=== PATIENT | female | born 1935 | race Hispanic/Latino ===

== ENCOUNTER 2017-06-06 15:21 | Inpatient (IN) | payer MEDICARE, OTHER ==
[2017-06-06 15:59] LABS: BASO # 0.05 K/mm3 (0.0-2.0); BASO % 0.7 % (0.0-3.0); EOS # 0.1 (0.0-0.7); EOS % 0.9 % (1.5-5.0); GRAN # 4.71 (1.4-6.5); GRAN % 63.3 % (50.0-68.0); LYMPH # 1.5 (1.2-3.4); LYMPH % 19.9 % (22.0-35.0); MEAN CORPUSCULAR HGB CONC 34.1 g/dl (31.0-37.0); MONO # 1.1 (0.1-0.6); MONO % 15.2 % (1.0-6.0); PLATELET COUNT 138 10^3/uL (120.0-450.0); RBC 4.67 10^6/uL (3.5-6.1); RED CELL DISTRIBUTION WIDTH 13.4 % (11.5-14.5); WHITE BLOOD COUNT 7.4 10^3/ul (4.5-11.0)
[2017-06-06 16:05] LABS: ALB/GLOB RATIO 1.2 (1.1-1.8); ALBUMIN 3.9 g/dL (3.0-4.8); ALT/SGPT 41 U/L (7-56); AST/SGOT 52 U/L (15-39); BLOOD UREA NITROGEN 15 mg/dL (7-21); CALCIUM 10.1 mg/dL (8.4-10.5); GFR AFRICAN-AMERICAN > 60; GFR NON-AFRICAN AMERICAN > 60; INR 1.06 (0.93-1.08); MAGNESIUM 1.7 mg/dL (1.7-2.2); PARTIAL THROMBOPLASTIN TIME 25.5 Seconds (23.7-30.8); PROTHROMBIN TIME 11.4 Seconds (9.9-11.8)
--- NOTE | 2017-06-06 16:10 | RAD ---
HISTORY: cough COMPARISON: 08/17/2013 FINDINGS: LUNGS: No active pulmonary disease. PLEURA: No significant pleural effusion identified, no pneumothorax apparent. CARDIOVASCULAR: Mild cardiomegaly and aortic tortuosity OSSEOUS STRUCTURES: Old fracture deformities in pleural thickening can be seen on the right. Findings are unchanged VISUALIZED UPPER ABDOMEN: Normal. OTHER FINDINGS: None. IMPRESSION: No active disease.
[2017-06-06] MEDS ORDERED: Heparin 25,000units in D5W 25,000 UNITS/250 ML BAG IV PRN ×2 (16:11→16:38)
[2017-06-06 16:15] LABS: B-TYPE NATRIURETIC PEPTIDE 15500 pg/mL (0-450)
[2017-06-06 16:17] LABS: TROPONIN I 0.47 ng/mL
--- NOTE | 2017-06-06 16:20 | ED PDOC ---
Arrival/HPI - General Chief Complaint: Medical Clearance Time Seen by Provider: 06/06/17 15:23 Historian: Patient - History of Present Illness Narrative History of Present Illness (Text): 06/06/17 15:48 An 81 year old female whose past medical history includes, R lung surgery for a lung CA, presents tot he emergency department after being sent in from PMD's office for tachycardia and Atrial fibrillation. Patient reports that she had a sore throat and ear pain last week. She states that the chest pain has resolved. She denies headache, nausea, vomiting, diarrhea, abdominal pain, dizziness, or any other complaint. Time/Duration: Other (3 days) Symptom Onset: Sudden Symptom Course: Unchanged Activities at Onset: Rest, Light Context: Home Past Medical History - Provider Review Nursing Documentation Reviewed: Yes - Infectious Disease Hx of Infectious Diseases: None - Tetanus Immunization Tetanus Immunization: Unknown - Cardiac Hx Pacemaker: No - Neurological Hx Paralysis: No - Hematological/Oncological Hx Blood Transfusions: No Hx Blood Transfusion Reaction: No - Musculoskeletal/Rheumatological Hx Musculoskeletal Disorders: Yes (RA) - Psychiatric Hx Emotional Abuse: No Hx Physical Abuse: No Hx Substance Use: No - Surgical History Hx Joint Replacement: Yes (knee, hip,) - Anesthesia Hx Anesthesia Reactions: No Hx Malignant Hyperthermia: No - Suicidal Assessment Feels Threatened In Home Enviroment: No Family/Social History - Physician Review Nursing Documentation Reviewed: Yes Family/Social History: No Known Family HX Smoking Status: Never Smoked Hx Alcohol Use: No Hx Substance Use: No Hx Substance Use Treatment: No Allergies/Home Meds Allergies/Adverse Reactions: Allergies No Known Allergies Allergy (Verified 06/06/17 20:08) Home Medications: Home Meds Medication Instructions Recorded Confirmed Leflunomide [Arava] 20 mg PO DAILY 08/17/13 06/06/17 Montelukast [Singulair] 10 mg PO DAILY 08/17/13 06/06/17 Spironolactone [Aldactone] 25 mg PO DAILY 08/17/13 06/06/17 Clonazepam [Klonopin] 0.5 mg PO BID 06/06/17 06/06/17 Folic Acid 1 mg PO DAILY 06/06/17 06/06/17 Gabapentin 300 mg PO DAILY 06/06/17 06/06/17 Propylene Glycol [Systane Balance] 1 drp OU BID 06/06/17 06/06/17 Propylene Glycol/Peg 400 [Systane 1 drp OU BID 06/06/17 06/06/17 0.3-0.4% Eye Drops] Timolol [Betimol] 1 drp OS BID 06/06/17 06/06/17 Tiotropium [Spiriva] 18 mcg IH DAILY 06/06/17 06/06/17 amLODIPine [Norvasc] 5 mg PO BID 06/06/17 06/06/17 Review of Systems - Physician Review All systems were reviewed & negative as marked: Yes - Review of Systems Constitutional: absent: Fevers, Night Sweats Cardiovascular: Chest Pain Gastrointestinal: absent: Abdominal Pain, Diarrhea, Nausea, Vomiting Neurological: absent: Headache, Dizziness Physical Exam Vital Signs Reviewed: Yes Vital Signs Temp Pulse Resp BP Pulse Ox 06/06/17 23:15 117 H 16 120/79 94 L 06/06/17 22:54 137 H 142/110 H 06/06/17 22:26 139 H 17 143/108 H 95 06/06/17 21:44 98.1 F 139 H 18 128/98 H 06/06/17 21:06 139 H 128/98 H 06/06/17 19:06 120 H 18 138/95 H 06/06/17 17:50 148 H 161/89 H 06/06/17 17:22 98.1 F 135 H 22 140/105 H 93 L 06/06/17 16:44 127/77 06/06/17 15:49 188 H 143/77 06/06/17 15:36 97.7 F 109 H 18 115/101 H 93 L Temperature: Afebrile Blood Pressure: Hypertensive Pulse: Tachycardic Respiratory Rate: Agonal Appearance: Positive for: Well-Appearing, Non-Toxic, Comfortable Pain Distress: None Mental Status: Positive for: Alert and Oriented X 3 - Systems Exam Head: Present: Atraumatic, Normocephalic Pupils: Present: PERRL Extroacular Muscles: Present: EOMI Conjunctiva: Present: Normal Mouth: Present: Moist Mucous Membranes Neck: Present: Normal Range of Motion Respiratory/Chest: Present: Rales (rales at lung bases) Cardiovascular: Present: Irregular Rhythm (heart irregularly regular) Abdomen: Present: Normal Bowel Sounds. No: Tenderness, Distention, Peritoneal Signs Back: Present: Normal Inspection Upper Extremity: Present: Normal Inspection. No: Cyanosis, Edema Lower Extremity: Present: Normal Inspection. No: Edema Neurological: Present: GCS=15, CN II-XII Intact, Speech Normal Skin: Present: Warm, Dry, Normal Color. No: Rashes Psychiatric: Present: Alert, Oriented x 3, Normal Insight, Normal Concentration Medical Decision Making ED Course and Treatment: 06/06/17 15:00 Impression: An 81 year old female sent in by PMD for A-Fib and Tachycardia. Differential Diagnosis included but are not limited to: Plan: -- EKG -- Urinalysis -- Aspirin, Cardizem, Lasix, Heparin -- Reassess and disposition Progress Notes: EKG: Ordered, reviewed, and independently interpreted the EKG. Rate : 160 BPM Rhythm : Atrial fibrillation 06/06/17 16:43 Chest X-ray Dictator : Liam Calvo MD Report Date : 06/06/2017 16:08:45 IMPRESSION: No active disease. - Lab Interpretations Lab Results: 06/06/17 15:45 06/06/17 15:45 Lab Results 06/06/17 15:45: Sodium 132, Potassium 4.2, Chloride 99, Carbon Dioxide 23, Anion Gap 14, BUN 15, Creatinine 0.7, Est GFR ( Amer) > 60, Est GFR (Non- Af Amer) > 60, Random Glucose 113 H, Calcium 10.1, Magnesium 1.7, Total Bilirubin 0.9, AST 52 H, ALT 41, Alkaline Phosphatase 66, Lactate Dehydrogenase 628, Total Creatine Kinase 112, Troponin I 0.47 H*, NT-Pro-B Natriuret Pep 82642 H, Total Protein 7.1, Albumin 3.9, Globulin 3.2, Albumin/Globulin Ratio 1.2 06/06/17 15:45: PT 11.4, INR 1.06, APTT 25.5 06/06/17 15:45: WBC 7.4, RBC 4.67, Hgb 14.0, Hct 41.1, MCV 88.0, MCH 30.0, MCHC 34.1, RDW 13.4, Plt Count 138, MPV 12.0 H, Gran % 63.3, Lymph % (Auto) 19.9 L, [place] % (Auto) 15.2 H, Eos % (Auto) 0.9 L, Baso % (Auto) 0.7, Gran # 4.71, Lymph # 1.5, [place] # 1.1 H, Eos # 0.1, Baso # 0.05 - RAD Interpretation Radiology Orders: 06/06/17 15:45 CHEST PORTABLE [RAD] Stat - EKG Interpretation Interpreted by ED Physician: Yes Type: 12 lead EKG - Medication Orders Current Medication Orders: Aspirin (Aspirin Chewable) 81 mg PO DAILY [facility] Last Admin: 06/07/17 09:45 Dose: 81 mg Atenolol (Tenormin) 25 mg PO DAILY [facility] Last Admin: 06/07/17 10:39 Dose: Atorvastatin Calcium (Lipitor) 40 mg PO DIN [facility] Last Admin: 06/06/17 22:55 Dose: 40 mg Clonazepam (Klonopin) 0.5 mg PO BID [facility] PRN Reason: Protocol Last Admin: 06/07/17 09:45 Dose: 0.5 mg Folic Acid (Folic Acid) 1 mg PO DAILY [facility] Last Admin: 06/07/17 09:45 Dose: 1 mg Furosemide (Lasix) 20 mg IVP Q12 [facility] Last Admin: 06/07/17 09:44 Dose: 20 mg Gabapentin (Neurontin) 300 mg PO DAILY [facility] PRN Reason: Protocol Last Admin: 06/07/17 09:44 Dose: 300 mg Metoprolol Tartrate (Lopressor) 5 mg IVP Q4 PRN PRN Reason: HR > 115 Last Admin: 06/07/17 05:46 Dose: 5 mg Non-Formulary Medication (Leflunomide [Arava]) 20 mg PO DAILY [facility] Last Admin: 06/07/17 10:38 Dose: (Propylene Glycol [ Systane Balance] 1 Drp) (Homemed) 1 drp OU BID [facility] Last Admin: 06/07/17 10:39 Dose: (Timolol [Betimol] 1 (Drp) (Homemed)) 1 drp OS BID [facility] Last Admin: 06/07/17 10:40 Dose: Pantoprazole Sodium (Protonix Inj) 40 mg IVP DAILY [facility] Last Admin: 06/07/17 09:44 Dose: 40 mg Spironolactone (Aldactone) 25 mg PO DAILY [facility] Last Admin: 06/07/17 09:45 Dose: 25 mg Tiotropium Bath (Spiriva) 18 mcg IH DAILY [facility] Last Admin: 06/07/17 09:45 Dose: 18 mcg Verapamil HCl (Calan Tab) 40 mg PO TID [facility] Last Admin: 06/07/17 14:04 Dose: Not Given Non-Admin Reason: NPO Verapamil HCl (Verapamil Inj) 2.5 mg IVP Q6H PRN PRN Reason: for heart rate >130 Discontinued Medications Amlodipine Besylate (Norvasc) 5 mg PO BID [facility] Last Admin: 06/06/17 21:06 Dose: 5 mg Aspirin (Aspirin) 325 mg PO STAT STA Stop: 06/06/17 16:21 Last Admin: 06/06/17 16:44 Dose: 325 mg Clonazepam (Klonopin) 0.5 mg PO BID [facility] Last Admin: 06/06/17 21:07 Dose: Clopidogrel Bisulfate (Plavix) 300 mg PO STAT STA Stop: 06/07/17 09:02 Last Admin: 06/07/17 09:48 Dose: 300 mg Diltiazem HCl (Cardizem) 20 mg IVP STAT STA Stop: 06/06/17 15:46 Last Admin: 06/06/17 15:49 Dose: 20 mg Diltiazem HCl (Cardizem) Confirm Administered Dose 25 mg .ROUTE .STK-MED ONE Stop: 06/06/17 15:48 Last Admin: 06/06/17 15:52 Dose: Diltiazem HCl (Cardizem) 30 mg PO STAT STA Stop: 06/06/17 16:12 Last Admin: 06/06/17 16:36 Dose: 30 mg Diltiazem HCl (Cardizem) 15 mg IVP STAT STA Stop: 06/06/17 17:33 Last Admin: 06/06/17 17:50 Dose: 15 mg Diltiazem HCl (Cardizem) 30 mg PO QID [facility] Last Admin: 06/06/17 21:06 Dose: 30 mg Fentanyl (Fentanyl) Confirm Administered Dose 100 mcg .ROUTE .STK-MED ONE Stop: 06/07/17 14:02 Furosemide (Lasix) 40 mg IVP STAT STA Stop: 06/06/17 16:24 Last Admin: 06/06/17 16:44 Dose: 40 mg Heparin Sodium (Porcine) (Heparin) 4,000 units IV ONCE ONE PRN Reason: Protocol Stop: 06/06/17 16:12 Last Admin: 06/06/17 16:48 Dose: 4,000 units Heparin Sodium (Porcine) (Heparin) Confirm Administered Dose 10,000 units .ROUTE .STK-MED ONE Stop: 06/07/17 14:02 Heparin Sodium/Dextrose (Heparin 25,000 Units/250ml In D5w) 25,000 units in 250 mls @ 15.012 mls/hr IV .[id number] PRN; Protocol; 18 UNITS/KG/HR PRN Reason: ADJUST RATE PER PROTOCOL Stop: 06/07/17 10:00 Last Titration: 06/07/17 01:51 Dose: 15 units/kg/hr, 12.51 mls/hr Magnesium Sulfate 2 gm/ Sodium (Chloride) 104 mls @ 102 mls/hr IVPB ONCE ONE Stop: 06/07/17 10:28 Last Admin: 06/07/17 10:31 Dose: 102 mls/hr Potassium Chloride (Potassium Chloride 20 Meq/100 Ml) 20 meq in 100 mls @ 50 mls/hr IVPB Q2H YA Stop: 06/07/17 13:29 Last Admin: 06/07/17 12:24 Dose: 50 mls/hr Heparin Sodium (Porcine) (Heparin 1000 Units/500 Ml Ns) Confirm Administered Dose 1,500 mls @ ud IV .STK-MED ONE Stop: 06/07/17 14:02 Iodixanol (Visipaque 320 Mg/Ml 200 Ml) Confirm Administered Dose 200 ml IV .STK- MED ONE Stop: 06/07/17 14:02 Lidocaine HCl (Lidocaine 2% 20ml Vial) Confirm Administered Dose 20 ml .ROUTE .STK-MED ONE Stop: 06/07/17 14:01 Midazolam HCl (Versed Inj) Confirm Administered Dose 2 mg .ROUTE .STK-MED ONE Stop: 06/07/17 14:02 Pneumococcal Polyvalent Vaccine (Pneumovax 23 Vaccine) 0.5 ml IM .ONCE ONE Stop: 06/06/17 22:15 Last Admin: 06/06/17 23:55 Dose: Verapamil HCl (Verapamil Inj) Confirm Administered Dose 5 mg IVP .STK-MED ONE Stop: 06/07/17 14:01 Disposition/Present on Arrival - Present on Arrival Any Indicators Present on Arrival: No History of DVT/PE: No History of Uncontrolled Diabetes: No Urinary Catheter: No History of Decub. Ulcer: No History Surgical Site Infection Following: None - Disposition Have Diagnosis and Disposition been Completed?: Yes Diagnosis: Atrial fibrillation with RVR, NSTEMI (non-ST elevated myocardial infarction) Disposition: HOSPITALIZED Disposition Time: 05:00 Condition: FAIR
--- NOTE | 2017-06-06 17:44 | CP.PCM.HP ---
<Roxanne Martinez - Last Filed: 06/06/17 20:11> History of Present Illness - History of Present Illness History of Present Illness: 81 F with PMH HTN, HLD, restless leg syndrome, anxiety, lung cancer (s/p lobe resection) presents with a-fib with RVR after being sent from PMD with a-fib with RVR. PT S&E at bedside a-fib @ HR 155 on monitor. Patient in no acute distress. Patient is with daughter and . ER doctor mentioned that patient was anxious. Patient states she has been feeling uncomfortable and lacking energy these past three days. Three days ago, patient fell at home, described as a mechanical fall (tripped on a rug at home). No LOC, no lapse in memory, no head trauma. Patient admits to ear pain and a sore throat that resolved last week. Chest pain resolved at the time of admission in the ED. Patient denies SOB, headaches, N/V/D/Abdominal pain and dizziness. Patient states she has felt like this before when she had Right lung surgery for lung CA (2012) PMH: as above PSH: Right knee replacement, Left Hip replacement, unspecified left shoulder repair, R lung lobectomy (2012) SHx: former smoker for 1 ppd x 7 years quit 55 years ago. never illicit drugs. social EtOH Allergies: NKDA PMD: Dr. Huang Present on Admission - Present on Admission Any Indicators Present on Admission: No History of DVT/PE: No History of Uncontrolled Diabetes: No Urinary Catheter: No Decubitus Ulcer Present: No Review of Systems - Review of Systems Systems not reviewed;Unavailable: Acuity of Condition - Constitutional Constitutional: As Per HPI - EENT Nose/Mouth/Throat: As Per HPI Past Patient History - Infectious Disease Hx of Infectious Diseases: None - Tetanus Immunizations Tetanus Immunization: Unknown - Past Medical History & Family History Past Medical History?: Yes - Past Social History Smoking Status: Former Smoker Alcohol: None Drugs: Denies - CARDIAC Hx Pacemaker: No - NEUROLOGICAL Hx Paralysis: No - HEMATOLOGICAL/ONCOLOGICAL Hx Blood Transfusions: No Hx Blood Transfusion Reaction: No - MUSCULOSKELETAL/RHEUMATOLOGICAL Hx Musculoskeletal Disorders: Yes (RA) - PSYCHIATRIC Hx Emotional Abuse: No Hx Physical Abuse: No Hx Substance Use: No - SURGICAL HISTORY Hx Joint Replacement: Yes (knee, hip,) - ANESTHESIA Hx Anesthesia Reactions: No Hx Malignant Hyperthermia: No Meds Allergies/Adverse Reactions: Allergies Allergy/AdvReac Type Severity Reaction Status Date / Time No Known Allergies Allergy Verified 06/06/17 20:08 Physical Exam - Constitutional Appears: Non-toxic, No Acute Distress - Head Exam Head Exam: NORMAL INSPECTION - Eye Exam Eye Exam: EOMI, Normal appearance - ENT Exam ENT Exam: Mucous Membranes Moist - Neck Exam Neck exam: Positive for: Full Rom - Respiratory Exam Respiratory Exam: Clear to Auscultation Bilateral. absent: Accessory Muscle Use , Respiratory Distress, NORMAL BREATHING PATTERN - Cardiovascular Exam Cardiovascular Exam: Tachycardia, Irregular Rhythm, Systolic Murmur (to re- evaluate, grade II/III) - Extremities Exam Extremities exam: Positive for: full ROM Additional comments: 2+ pitting edema of lower extremities including legs and ankles. excluding feet. - Neurological Exam Neurological exam: Alert, Normal Gait, Oriented x3 - Psychiatric Exam Psychiatric exam: Normal Affect, Normal Mood - Skin Skin Exam: Dry, Intact, Normal Color, Warm Results - Vital Signs Recent Vital Signs: Last Vital Signs Temp 98.1 F 06/06/17 17:22 Pulse 135 H 06/06/17 17:22 Resp 22 06/06/17 17:22 BP 140/105 H 06/06/17 17:22 Pulse Ox 93 L 06/06/17 17:22 - Labs Result Diagrams: 06/06/17 15:45 06/06/17 15:45 Assessment & Plan - Assessment and Plan (Free Text) Assessment: 81 F a-fib RVR x 3 days. PMH: Plan: AFib with RVR -Hx of Afib s/p Lung lobectomy, so likely paroxysmal; may also be 2/2 recent infection, increased heart strain (elevated BNP in ED) -Tachy to 140's in ED, but remains hemodynamically stable -Hx of Afib s/p Lung lobectomy, so likely paroxysmal -EKG in ED notable for AFib, no ST-T wave changes; Repeat EKG in AM -Trop 0.47, BNP 57159; trend trops q8 -Given Cardizem Push x2 in ED, if remains uncontrolled on PO meds with PRN IV push, will need to start on drip and transfer to ICU -Cardizem PO 30mg q4, Lopressor 5mg IV q4 PRN for HR > 115 -Lasix 20mg IV q12 -Continue anticoagulation with heparin drip -Cardio consulted NSTEMI -Trop 0.47 in ED, no ST-T wave changes on EKG -ACS vs 2/2 AFib with RVR vs 2/2 increased heart strain -Continue with heparin drip for anticoagulation -Trop 0.47, BNP 26794; trend trops q8 -Lasix 20mg IV q12 -Asa 325 given in ED, continue with 81mg PO daily -Start on Lipitor 40mg PO daily -F/u Cards recs -Echo ordered HTN -continue home norvasc -Lasix 20mg IV q12 -hold parameters for Norvasc and Cardizem if SBP < 90 Bilateral LE edema -CHF vs poor pumping 2/2 AFib RVR -Lasix 20mg IV q12 -Conservative fluid management, avoid IVF for now while able to tolerate PO fluids Anxiety -continue home Klonopin HLD -refused statin in the past, amenable to taking now -heart-healthy low fat diet Ppx: -Protonix for GI, Heparin drip covers for DVT Discussed and reviewed with attending, Dr. Parrish - Date & Time Date: 06/06/17 Time: 17:59 <Shivani VILLALTA,Effie - Last Filed: 06/08/17 11:16> Results - Vital Signs Recent Vital Signs: Last Vital Signs Temp 97.9 F 06/08/17 05:55 Pulse 114 H 06/08/17 09:21 Resp 20 06/08/17 05:55 BP 108/69 06/08/17 09:21 Pulse Ox 91 L 06/08/17 05:55 - Labs Result Diagrams: 06/08/17 06:00 06/08/17 06:00 Labs: Laboratory Results - last 24 hr 06/07/17 06/08/17 06/08/17 08:30 06:00 06:00 WBC 8.7 D RBC 4.60 Hgb 13.5 Hct 40.6 MCV 88.3 MCH 29.3 MCHC 33.3 RDW 13.6 Plt Count 125 MPV 11.6 H Gran % 63.9 Lymph % (Auto) 18.4 L [place] % (Auto) 15.7 H Eos % (Auto) 1.3 L Baso % (Auto) 0.7 Gran # 5.53 Lymph # 1.6 [place] # 1.4 H Eos # 0.1 Baso # 0.06 Sodium 133 Potassium 3.2 L Chloride 100 Carbon Dioxide 23 Anion Gap 13 BUN 13 Creatinine 0.6 Est GFR ( Amer) > 60 Est GFR (Non-Af Amer) > 60 Random Glucose 93 Calcium 8.6 Phosphorus 2.9 Magnesium 2.0 Total Bilirubin 0.8 AST 41 H ALT 37 Alkaline Phosphatase 59 Total Protein 5.8 Albumin 3.4 Globulin 2.3 Albumin/Globulin Ratio 1.5 LDL Cholesterol Direct 135 H Attending/Attestation - Attestation I have personally seen and examined this patient.: Yes I have fully participated in the care of the patient.: Yes I have reviewed all pertinent clinical information: Yes Notes (Text): 06/08/17 11:12 Patient was seen and examined with medical office secretary. Agreed with resident assessment and plan. 81 F with PMH HTN, HLD, restless leg syndrome, anxiety, lung cancer (s/p lobe resection 2012), post operative transient AF is admitted with AF with RVR , elevated troponin suggestive of NSEMI /Demand ischemia from tachycardia.Patient will be admitted in the hospital in tele, we will start patient on cardizem/ Metoprolo for rate control, IV heparin for anticoagulation.For CAD we will continue ASA/statin, metoprolol.We will get Echo and cardiology consult. Management plan was discussed in detail with patient and family. Education was provided.
[2017-06-06] MEDS ORDERED: LEVALBUTEROL TARTRATE IH SCH (18:15)
[2017-06-06 22:14] VITALS: BMI 31.4
[2017-06-06] MEDS ORDERED: Pneumococcal 23-Valent Vaccine IM ONE (22:14)
[2017-06-06] MEDS: Metoprolol 1 mg/ml Inj IVP PRN (22:54)
--- NOTE | 2017-06-07 00:12 | CARD ---
APPROVED REPORT EKG Measurement Heart [id number] <Conclusion> Atrial fibrillation with rapid ventricular response Rightward axis Septal infarct, age undetermined ===possible lateral injury pattern Abnormal ECG
[2017-06-07] MEDS: Metoprolol 1 mg/ml Inj IVP PRN ×3 (02:53→21:22)
[2017-06-07 06:17] LABS: URINE BILIRUBIN NEGATIVE (NEGATIVE); URINE BLOOD NEGATIVE (NEGATIVE); URINE GLUCOSE (UA) NEGATIVE (NEGATIVE); URINE LEUKOCYTE ESTERASE LARGE Leu/uL (NEGATIVE); URINE NITRATE NEGATIVE (NEGATIVE); URINE PROTEIN NEGATIVE mg/dL (<30 mg/dL); URINE UROBILINOGEN 0.2 E.U./dL (<1 E.U./dL)
[2017-06-07 06:24] LABS: URINE APPEARANCE SL CLOUDY (CLEAR); URINE COLOR YELLOW (YELLOW)
[2017-06-07 06:38] LABS: URINE BACTERIA FEW (NEG); URINE RBC 0 - 2 /hpf (0-2)
[2017-06-07 09:02] LABS: BASO # 0.08 K/mm3 (0.0-2.0); BASO % 1.3 % (0.0-3.0); EOS # 0.1 (0.0-0.7); EOS % 1.6 % (1.5-5.0); GRAN # 3.68 (1.4-6.5); GRAN % 58.3 % (50.0-68.0); HEMOGLOBIN 13.5 g/dL (12.0-16.0); LYMPH # 1.3 (1.2-3.4); LYMPH % 20.9 % (22.0-35.0); MEAN CELL VOLUME 87.6 fl (80.0-105.0); MEAN CORPUSCULAR HEMOGLOBIN 29.5 pg (25.0-35.0); MEAN CORPUSCULAR HGB CONC 33.7 g/dl (31.0-37.0); MEAN PLATELET VOLUME 12.9 fl (7.0-11.0); MONO # 1.1 (0.1-0.6); MONO % 17.9 % (1.0-6.0); PLATELET COUNT 129 10^3/uL (120.0-450.0); RBC 4.58 10^6/uL (3.5-6.1); RED CELL DISTRIBUTION WIDTH 13.5 % (11.5-14.5); WHITE BLOOD COUNT 6.3 10^3/ul (4.5-11.0)
[2017-06-07 09:13] LABS: ALB/GLOB RATIO 1.3 (1.1-1.8); ALBUMIN 3.7 g/dL (3.0-4.8); ALT/SGPT 42 U/L (7-56); AST/SGOT 42 U/L (15-39); BLOOD UREA NITROGEN 14 mg/dL (7-21); GFR AFRICAN-AMERICAN > 60; GFR NON-AFRICAN AMERICAN > 60; MAGNESIUM 1.4 mg/dL (1.7-2.2)
[2017-06-07] MEDS ORDERED: Magnesium Sulfate 2 GM in Sodium Chloride 0.9% 100 ML IVPB ONE ×2 (09:27→15:59)
[2017-06-07] MEDS: Tiotropium 18 mcg Cap For Inhalation IH SCH (09:45)
[2017-06-07] MEDS ORDERED: Tiotropium 18 mcg Cap For Inhalation IH SCH (10:00)
[2017-06-07 11:06] LABS: HDL CHOLESTEROL 41 mg/dL (29-60)
[2017-06-07 11:16] LABS: LDL CHOLESTEROL 135 mg/dL (0-129)
[2017-06-07] MEDS ORDERED: Lidocaine 2% Inj (20ml) ONE (14:00)
[2017-06-07] MEDS ORDERED: Midazolam 2 MG/2 ML VIAL ONE (14:01)
[2017-06-07] MEDS ORDERED: Iodixanol 320 MG/ML 200 ML BOTTLE IV ONE (14:01)
--- NOTE | 2017-06-07 15:04 | CP.PCM.PN ---
<Simon Vital - Last Filed: 06/07/17 17:18> Subjective - Date & Time of Evaluation Date of Evaluation: 06/07/17 Time of Evaluation: 15:01 - Subjective Subjective: Simon Vital DO, PGY-1, Hospitalist Service Dr. Parrish Patient seen and examined at bedside. Patient reports that her nose feels congested and that her ear aches. She denies chest pain, SOB, N/V/D Objective - Vital Signs/Intake and Output Vital Signs (last 24 hours): Temp Pulse Resp BP Pulse Ox 98.2 F 94 H 20 117/80 93 L 06/07/17 12:00 06/07/17 12:00 06/07/17 12:00 06/07/17 12:00 06/07/17 05:21 Intake and Output: 06/07/17 06/07/17 06:59 18:59 Intake Total 105 Balance 105 - Medications Medications: Current Medications Aspirin (Aspirin Chewable) 81 mg PO DAILY [facility] Last Admin: 06/07/17 09:45 Dose: 81 mg Atenolol (Tenormin) 25 mg PO DAILY [facility] Last Admin: 06/07/17 10:39 Dose: Not Given Atorvastatin Calcium (Lipitor) 40 mg PO DIN [facility] Last Admin: 06/06/17 22:55 Dose: 40 mg Clonazepam (Klonopin) 0.5 mg PO BID [facility] PRN Reason: Protocol Last Admin: 06/07/17 09:45 Dose: 0.5 mg Folic Acid (Folic Acid) 1 mg PO DAILY [facility] Last Admin: 06/07/17 09:45 Dose: 1 mg Furosemide (Lasix) 20 mg IVP Q12 YA Last Admin: 06/07/17 09:44 Dose: 20 mg Gabapentin (Neurontin) 300 mg PO DAILY [facility] PRN Reason: Protocol Last Admin: 06/07/17 09:44 Dose: 300 mg Metoprolol Tartrate (Lopressor) 5 mg IVP Q4 PRN PRN Reason: HR > 115 Last Admin: 06/07/17 05:46 Dose: 5 mg Non-Formulary Medication (Leflunomide [Arava]) 20 mg PO DAILY [facility] Last Admin: 06/07/17 10:38 Dose: Not Given (Propylene Glycol [ Systane Balance] 1 Drp) (Homemed) 1 drp OU BID [facility] Last Admin: 06/07/17 10:39 Dose: Not Given (Timolol [Betimol] 1 (Drp) (Homemed)) 1 drp OS BID [facility] Last Admin: 06/07/17 10:40 Dose: Not Given Pantoprazole Sodium (Protonix Inj) 40 mg IVP DAILY [facility] Last Admin: 06/07/17 09:44 Dose: 40 mg Spironolactone (Aldactone) 25 mg PO DAILY [facility] Last Admin: 06/07/17 09:45 Dose: 25 mg Tiotropium [place] (Spiriva) 18 mcg IH DAILY [facility] Last Admin: 06/07/17 09:45 Dose: 18 mcg Verapamil HCl (Calan Tab) 40 mg PO TID [facility] Last Admin: 06/07/17 14:04 Dose: Not Given Verapamil HCl (Verapamil Inj) 2.5 mg IVP Q6H PRN PRN Reason: for heart rate >130 - Labs Labs: 06/07/17 08:30 06/07/17 08:30 PT 11.4 Seconds (9.9-11.8) 06/06/17 15:45 INR 1.06 (0.93-1.08) 06/06/17 15:45 APTT 69.3 Seconds (23.7-30.8) H 06/07/17 08:30 - Constitutional Appears: Well, No Acute Distress - Head Exam Head Exam: ATRAUMATIC, NORMOCEPHALIC - Eye Exam Eye Exam: EOMI, Normal appearance, PERRL - ENT Exam ENT Exam: Mucous Membranes Moist, Normal Oropharynx - Neck Exam Neck Exam: Normal Inspection Additional comments: JVD - Respiratory Exam Respiratory Exam: Rales - Cardiovascular Exam Cardiovascular Exam: Tachycardia, Irregular Rhythm - GI/Abdominal Exam GI & Abdominal Exam: Soft, Normal Bowel Sounds. absent: Rebound - Rectal Exam Rectal Exam: Deferred - Extremities Exam Extremities Exam: Full ROM, Normal Capillary Refill, Normal Inspection. absent : Pedal Edema - Neurological Exam Neurological Exam: Alert, CN II-XII Intact, Oriented x3 Neuro motor strength exam: Left Upper Extremity: 5, Right Upper Extremity: 5, Left Lower Extremity: 5, Right Lower Extremity: 5 - Psychiatric Exam Psychiatric exam: Normal Affect, Normal Mood - Skin Skin Exam: Dry, Intact, Normal Color Assessment and Plan - Assessment and Plan (Free Text) Assessment: 81 yo female with Afib with RVR and elevated troponins who is to undergo Coronar catherization. Plan: AFib with RVR -Hx of Afib s/p Lung lobectomy, so likely paroxysmal; may also be 2/2 recent infection, increased heart strain (elevated BNP in ED) -Tachy to 140's in ED, but remains hemodynamically stable -Hx of Afib s/p Lung lobectomy, so likely paroxysmal -EKG in ED notable for AFib, no ST-T wave changes; Repeat EKG in AM -Trop 0.47, BNP 05140; trend trops q8 -Given Cardizem Push x2 in ED, if remains uncontrolled on PO meds with PRN IV push, will need to start on drip and transfer to ICU -Cardizem PO 30mg q4, Lopressor 5mg IV q4 PRN for HR > 115 -Lasix 20mg IV q12 -Continue anticoagulation with heparin drip -Cardio consulted NSTEMI -Trop 0.47, 0.56, -ACS vs 2/2 AFib with RVR vs 2/2 increased heart strain -Continue with heparin drip for anticoagulation -Trop 0.47, BNP 79947; -Lasix 20mg IV q12 -Asa 325 given in ED, continue with 81mg PO daily -Start on Lipitor 40mg PO daily -F/u Cards recs -Echo ordered HTN -continue home norvasc -Lasix 20mg IV q12 -hold parameters for Norvasc and Cardizem if SBP < 90 Bilateral LE edema -CHF vs poor pumping 2/2 AFib RVR -Lasix 20mg IV q12 -Conservative fluid management, avoid IVF for now while able to tolerate PO fluids Anxiety -continue home Klonopin HLD -refused statin in the past, amenable to taking now -heart-healthy low fat diet Ppx: -Protonix for GI, Heparin drip covers for DVT Discussed and reviewed with attending, Dr. Parrish <Shivani VILLALTA,[facility] - Last Filed: 06/08/17 12:00> Objective - Vital Signs/Intake and Output Vital Signs (last 24 hours): Temp Pulse Resp BP Pulse Ox 97.9 F 114 H 20 108/69 91 L 06/08/17 05:55 06/08/17 09:21 06/08/17 05:55 06/08/17 09:21 06/08/17 05:55 Intake and Output: 06/08/17 06/08/17 06:59 18:59 Intake Total 120 Output Total 0 Balance 120 - Medications Medications: Current Medications Amiodarone HCl (Cordarone) 400 mg PO BID [facility] Apixaban (Eliquis) 2.5 mg PO BID YA PRN Reason: Protocol Aspirin (Aspirin Chewable) 81 mg PO DAILY [facility] Last Admin: 06/08/17 09:20 Dose: 81 mg Atorvastatin Calcium (Lipitor) 40 mg PO DIN YA Last Admin: 06/07/17 16:16 Dose: 40 mg Clonazepam (Klonopin) 0.5 mg PO BID YA PRN Reason: Protocol Last Admin: 06/08/17 09:20 Dose: 0.5 mg Folic Acid (Folic Acid) 1 mg PO DAILY [facility] Last Admin: 06/08/17 09:21 Dose: 1 mg Furosemide (Lasix) 20 mg IVP Q12 YA Last Admin: 06/08/17 09:21 Dose: 20 mg Gabapentin (Neurontin) 300 mg PO DAILY [facility] PRN Reason: Protocol Metoprolol Tartrate (Lopressor) 5 mg IVP Q4 PRN PRN Reason: HR > 115 Last Admin: 06/07/17 21:22 Dose: 5 mg Non-Formulary Medication (Leflunomide [Arava]) 20 mg PO DAILY [facility] Last Admin: 06/08/17 09:23 Dose: Not Given (Propylene Glycol [ Systane Ultra] 1 Drp ) (Homemed) 1 drp OU BID YA Dorzolamine/ Timolol ((Homemed)) 1 drp OS BID YA Pantoprazole Sodium (Protonix Inj) 40 mg IVP DAILY [facility] Last Admin: 06/08/17 09:19 Dose: 40 mg Potassium Chloride (Klor-Con 10) 40 meq PO Q4 YA Stop: 06/08/17 16:01 Spironolactone (Aldactone) 25 mg PO DAILY [facility] Last Admin: 06/08/17 09:20 Dose: 25 mg Tiotropium [place] (Spiriva) 18 mcg IH DAILY [facility] Last Admin: 06/08/17 10:37 Dose: 18 mcg Verapamil HCl (Calan Tab) 40 mg PO TID [facility] Last Admin: 06/08/17 09:21 Dose: 40 mg Verapamil HCl (Verapamil Inj) 2.5 mg IVP Q6H PRN PRN Reason: for heart rate >130 - Labs Labs: 06/08/17 06:00 06/08/17 06:00 PT 11.4 Seconds (9.9-11.8) 06/06/17 15:45 INR 1.06 (0.93-1.08) 06/06/17 15:45 APTT 69.3 Seconds (23.7-30.8) H 06/07/17 08:30 Attending/Attestation - Attestation I have personally seen and examined this patient.: Yes I have fully participated in the care of the patient.: Yes I have reviewed all pertinent clinical information, including history, physical exam and plan: Yes Notes (Text): 06/08/17 11:56 Patient was seen and examined with medical oncologist. Agreed with resident assessment and plan. 81 F with PMH HTN, HLD, restless leg syndrome, anxiety, lung cancer (s/p lobe resection 2012), post operative transient AF was admitted with AF with RVR , elevated troponin suggestive of NSEMI /Demand ischemia from tachycardia. Patient underwent Cardiac cath today that reveal non obstructive CAD , EF was around 25%.Patient is still in AF, has been started on Amiodrone.If patient will not be converted to NSR, then she will be scheduled for cardiac catherization on Saturday.Patient case was discussed with cardiology over the phone. Management plan was discussed in detail with patient and family. Education was provided. 06/08/17 11:57
[2017-06-07] MEDS ORDERED: Digoxin 500 mcg/2ml (0.5 mg/2ml) Inj IVP ONE (15:54)
[2017-06-07] MEDS ORDERED: Sodium Chloride 0.9% 1,000 ML IV SCH (16:00)
[2017-06-07 16:23] VITALS: PULSE 125
--- NOTE | 2017-06-07 18:00 | CARD ---
APPROVED REPORT Procedure(s) performed: Left Heart Catheterization HISTORY The patient is a 81 year-old with a history of : most recent EF: 64%. (EF Method: RADIONUCLIDE), tobacco history() : The patient is a former smoker , hypertension , dyslipidemia , admitted with A fib new onset and NSTEMI. INDICATION The indication(s) include : non-STEMI . CASE TECHNIQUE The patient was brought urgently to the Cardiac Catheterization Laboratory in a fasting state and was prepped and draped in a sterile manner. The right femoral groin was infiltrated with 2% Lidocaine subcutaneous anesthesia. A 6 Fr x 11 cm Jacqueline sheath was inserted into the right femoral artery without difficulty. Coronary angiography was performed using coronary diagnostic catheters. The left coronary system was accessed and visualized with a Diagnostic .5 Fr JL 3.5 catheter. The right coronary system was accessed and visualized with a Diagnostic ,5 Fr JR 3.5 catheter. The left ventricle was accessed and visualized with a 5 Fr JR 3.5 catheter. Left ventricular/Aortic Valve gradient assessed on pullback. Left ventriculogram was performed in LOPEZ projection. Closure device was deployed with a 6 Fr / 7 Fr MynxGrip without any complications. Vessel Analysis The patient's coronary anatomy is right dominant. The left main coronary artery is a large size vessel without significant stenosis. The left main bifurcates to the left anterior descending and circumflex. The left anterior descending artery is a medium size vessel with diffuse calcification noted throughout this vessel and without significant stenosis. The first diagonal branch is a small size vessel with diffuse calcification noted throughout this vessel and without significant stenosis. The second diagonal branch is a small size vessel with diffuse calcification noted throughout this vessel and without significant stenosis. There is a 55% stenosis in the ostial segment. The circumflex artery is a medium size vessel with diffuse calcification noted throughout this vessel and without significant stenosis. The first obtuse marginal branch is a medium size vessel with diffuse calcification noted throughout this vessel and without significant stenosis. very tortous The right coronary artery is a medium size vessel with diffuse calcification noted throughout this vessel and without significant stenosis. The right posterior descending artery is a small size vessel with diffuse calcification noted throughout this vessel and without significant stenosis. Left Ventricle The left ventricle is borderline enlarged in size with mild to moderately decreased contractility. Non-Ischemic cardiomyopathy. The left ventricular ejection fraction is estimated to be 35-40%. The left ventricular end diastolic pressure is 18 mmHg. There was no gradient across the aortic valve upon pullback. Conclusion Non-obstructive CAD limited to D2 ostial 55%, small calibre vessel Major epicardial coronaries are essentially Normal decreased Lv Fx. Ef-35-40%, ( A fib), EDP-18. Recommendations Aggressive Medical TherapyCardiac Risk Reduction Program Add Amiodarone, verapamil and eliquis for Afib if gets convertd to NSR then eliquis for two weeks, if does not get convertd then consider REECE cardioversion on Saturday. CC; dr. wasserman
--- NOTE | 2017-06-07 22:22 | PN ---
DATE: 06/07/2017 REASON FOR CONSULTATION: Non ST-elevation myocardial infarction, atrial fibrillation. BRIEF CLINICAL HISTORY: An 81-year-old female with history of hypertension, admitted with non ST-segment myocardial infarction and AFib. The patient underwent cardiac catheterization that revealed non-obstructive coronary artery disease, decreased LV function, ejection fraction of 25%. Plan is to load with amiodarone, continue Verapamil, give one dose of digoxin; heart rate was 130 to 140, and if the patient remains in AFib, we will start 24 to 36 hours after the cardiac catheterization because the patient has right femoral access. We will get echo to assess LV function. We will supplement aggressively magnesium because the patient's daughter stated that in the past when the patient had magnesium after the lobectomy, after the magnesium supplementation, the patient went into a sinus, 4 years ago this happened. Thank you Dr. Parrish for providing the opportunity in taking care of the patient. Effie Bettencourt MD
--- NOTE | 2017-06-07 23:42 | CARD ---
APPROVED REPORT EKG Measurement Heart [id number] <Conclusion> Atrial fibrillation with rapid ventricular response Lateral infarct, age undetermined Abnormal ECG
[2017-06-08 07:27] LABS: BASO # 0.06 K/mm3 (0.0-2.0); BASO % 0.7 % (0.0-3.0); EOS # 0.1 (0.0-0.7); EOS % 1.3 % (1.5-5.0); GRAN # 5.53 (1.4-6.5); GRAN % 63.9 % (50.0-68.0); HEMOGLOBIN 13.5 g/dL (12.0-16.0); LYMPH # 1.6 (1.2-3.4); LYMPH % 18.4 % (22.0-35.0); MEAN CELL VOLUME 88.3 fl (80.0-105.0); MEAN CORPUSCULAR HEMOGLOBIN 29.3 pg (25.0-35.0); MEAN CORPUSCULAR HGB CONC 33.3 g/dl (31.0-37.0); MEAN PLATELET VOLUME 11.6 fl (7.0-11.0); MONO # 1.4 (0.1-0.6); MONO % 15.7 % (1.0-6.0); PLATELET COUNT 125 10^3/uL (120.0-450.0); RED CELL DISTRIBUTION WIDTH 13.6 % (11.5-14.5); WHITE BLOOD COUNT 8.7 10^3/ul (4.5-11.0)
[2017-06-08 07:48] LABS: ALB/GLOB RATIO 1.5 (1.1-1.8); ALBUMIN 3.4 g/dL (3.0-4.8); ALT/SGPT 37 U/L (7-56); AST/SGOT 41 U/L (15-39); BLOOD UREA NITROGEN 13 mg/dL (7-21); CALCIUM 8.6 mg/dL (8.4-10.5); GFR AFRICAN-AMERICAN > 60; GFR NON-AFRICAN AMERICAN > 60
[2017-06-08] MEDS: Tiotropium 18 mcg Cap For Inhalation IH SCH (10:37)
[2017-06-08] MEDS: Potassium Chloride 10 mEq ER Tab PO SCH ×2 (13:31→16:04)
--- NOTE | 2017-06-08 13:43 | CT ---
PROCEDURE: CT Chest with contrast HISTORY: pulmonary embolism COMPARISON: 08/17/2013. TECHNIQUE: Contiguous axial images were obtained through the chest with intravenous contrast enhancement. Sagittal and coronal reconstructions were performed. IV contrast: 100 cc Omnipaque Mean Hounsfield unit values in the main pulmonary artery: 485.98 Radiation dose (DLP): 30379.78 mGy-cm. This CT exam was performed using one or more of the following dose reduction techniques: Automated exposure control, adjustment of the mA and/or kV according to patient size, and/or use of iterative reconstruction technique. FINDINGS: LUNGS: Clear lungs. Visualized airway clear. MEDIASTINUM: Unremarkable thoracic aorta. No aneurysm or dissection. Cardiomegaly. No evidence of acute, significant cardiovascular disease. Dilated main pulmonary artery 3.4 cm in diameter. Similar findings identified previously findings are consistent with pulmonary arterial hypertension. No lymphadenopathy. PLEURA: No pleural fluid. No pneumothorax. BONES: No fracture. No destructive lesion. Findings related to prior trauma proximal left humerus, glenohumeral relationship. UPPER ABDOMEN: Grossly unremarkable. OTHER FINDINGS: Postthoracotomy changes, chest wall deformity, rib resection, up pleural parenchymal findings in the right apex. Similar findings identified on the prior CT thorax 08/17/2013. IMPRESSION: Unremarkable contrast enhanced CT of the chest.Additional benign and/or incidental findings described above.
--- NOTE | 2017-06-08 15:19 | PN ---
DATE: 06/08/2017 [address] follow up for Dr. Bettencourt. SUBJECTIVE: The patient is comfortable in bed. No shortness of breath. OBJECTIVE: VITAL SIGNS: On physical exam, blood pressure 108/69, the heart rate is 115, atrial fibrillation. NECK: Negative JVD. LUNGS: Decreased breath sounds. HEART: Reveal S1, S2. EXTREMITIES: Without edema. LABORATORY DATA: Potassium is 3.2 which has been replaced. The hemoglobin is 13.5. IMPRESSION: 1. Non-ST segment elevation myocardial infarction. 2. Nonobstructive coronary artery disease. 3. Dilated cardiomyopathy. 4. Atrial fibrillation. PLAN: Given these findings, the patient is currently on low-dose amiodarone in an attempt to convert the patient back to sinus rhythm. Given her unremarkable coronaries, we will order a CT scan to rule out a pulmonary embolism today. In addition, we will increase her amiodarone dose for the next several days in an attempt to convert her atrial fibrillation back to sinus rhythm. Jordan Simental MD
[2017-06-08] MEDS: [UNRECOGNIZED DRUG - OTHER] OS SCH (17:40)
[2017-06-08] MEDS: TIMOLOL OS SCH (17:40)
--- NOTE | 2017-06-08 18:46 | CARD ---
APPROVED REPORT EKG Measurement Heart [id number] <Conclusion> Atrial fibrillation with rapid ventricular response Lateral infarct, age undetermined ST & T wave abnormality, consider inferior ischemia or digitalis effect ST & T wave abnormality, consider anterior ischemia or digitalis effect Abnormal ECG
--- NOTE | 2017-06-08 19:42 | CP.PCM.PN ---
<Simon Vital - Last Filed: 06/08/17 19:39> Subjective - Date & Time of Evaluation Date of Evaluation: 06/08/17 Time of Evaluation: 08:00 - Subjective Subjective: Simon Vital DO, PGY-1, Hospitalist Service Dr. Parrish Patient seen and examined at bedside. Nurse reports no events overnight. Patient denies any CP, SOB, N/V/D. Objective - Vital Signs/Intake and Output Vital Signs (last 24 hours): Temp Pulse Resp BP Pulse Ox 97.3 F L 102 H 20 124/85 91 L 06/08/17 18:00 06/08/17 18:00 06/08/17 18:00 06/08/17 18:00 06/08/17 05:55 - Medications Medications: Current Medications Amiodarone HCl (Cordarone) 400 mg PO BID [facility] Last Admin: 06/08/17 17:39 Dose: 400 mg Apixaban (Eliquis) 2.5 mg PO BID [facility] PRN Reason: Protocol Last Admin: 06/08/17 17:39 Dose: 2.5 mg Artificial Tears (Artificial Tears) 0 ml OU BID [facility] Aspirin (Aspirin Chewable) 81 mg PO DAILY [facility] Last Admin: 06/08/17 09:20 Dose: 81 mg Atorvastatin Calcium (Lipitor) 40 mg PO DIN [facility] Last Admin: 06/08/17 16:04 Dose: 40 mg Clonazepam (Klonopin) 0.5 mg PO BID [facility] PRN Reason: Protocol Folic Acid (Folic Acid) 1 mg PO DAILY [facility] Last Admin: 06/08/17 09:21 Dose: 1 mg Furosemide (Lasix) 20 mg IVP Q12 YA Last Admin: 06/08/17 09:21 Dose: 20 mg Gabapentin (Neurontin) 300 mg PO DAILY [facility] PRN Reason: Protocol Metoprolol Tartrate (Lopressor) 5 mg IVP Q4 PRN PRN Reason: HR > 115 Last Admin: 06/07/17 21:22 Dose: 5 mg Non-Formulary Medication (Leflunomide [Arava]) 20 mg PO DAILY [facility] Last Admin: 06/08/17 09:23 Dose: Not Given (Propylene Glycol [ Systane Ultra] 1 Drp ) (Homemed) 1 drp OU BID [facility] Last Admin: 06/08/17 18:08 Dose: Not Given Dorzolamine/ Timolol ((Homemed)) 1 drp OS BID [facility] Last Admin: 06/08/17 17:40 Dose: 1 drp Pantoprazole Sodium (Protonix Ec Tab) 40 mg PO 0600 [facility] Spironolactone (Aldactone) 25 mg PO DAILY [facility] Last Admin: 06/08/17 09:20 Dose: 25 mg Tiotropium [place] (Spiriva) 18 mcg IH DAILY [facility] Last Admin: 06/08/17 10:37 Dose: 18 mcg Verapamil HCl (Calan Tab) 40 mg PO TID [facility] Last Admin: 06/08/17 17:39 Dose: 40 mg Verapamil HCl (Verapamil Inj) 2.5 mg IVP Q6H PRN PRN Reason: for heart rate >130 - Labs Labs: 06/08/17 06:00 06/08/17 06:00 PT 11.4 Seconds (9.9-11.8) 06/06/17 15:45 INR 1.06 (0.93-1.08) 06/06/17 15:45 APTT 69.3 Seconds (23.7-30.8) H 06/07/17 08:30 - Constitutional Appears: Well, No Acute Distress - Head Exam Head Exam: ATRAUMATIC, NORMOCEPHALIC - Eye Exam Eye Exam: EOMI, Normal appearance Pupil Exam: NORMAL ACCOMODATION - ENT Exam ENT Exam: Mucous Membranes Moist, Normal Oropharynx - Neck Exam Neck Exam: Normal Inspection - Respiratory Exam Respiratory Exam: Clear to Ausculation Bilateral, NORMAL BREATHING PATTERN - Cardiovascular Exam Cardiovascular Exam: Tachycardia, Irregular Rhythm - GI/Abdominal Exam GI & Abdominal Exam: Soft, Normal Bowel Sounds. absent: Guarding, Rebound - Rectal Exam Rectal Exam: Deferred - Neurological Exam Neurological Exam: Alert, Awake, CN II-XII Intact, Oriented x3 - Psychiatric Exam Psychiatric exam: Normal Affect, Normal Mood - Skin Skin Exam: Dry, Intact Assessment and Plan - Assessment and Plan (Free Text) Assessment: 81 F with PMH HTN, HLD, restless leg syndrome, anxiety, lung cancer (s/p lobe resection 2012), post operative transient AF was admitted with AF with RVR , elevated troponin suggestive of NSEMI /Demand ischemia from tachycardia. Plan: 1) Atrial fibrillation with RVR Amiodarone 400 mg BID, Verapamil 40 mg TID, and Eliquis 2.5 mg BID If rhythm does not convert to NSR, REECE and possible DC cardioversion on Saturday. EF estimated to be 25-30% during Coronary Catherization 2) Elevated troponins Coronary showed no significant stenosis 3) CHF Lasix 20 mg IVP BID Spirinolactone 25 mg PO Daily 4) Anxiety C/W Klonopin as needed 5) Pulmonary Hypertension Noted on Ct of chest. <Effie Parrish MD - Last Filed: 06/09/17 10:13> Objective - Vital Signs/Intake and Output Vital Signs (last 24 hours): Temp Pulse Resp BP Pulse Ox 98.1 F 106 H 19 127/76 94 L 06/09/17 06:00 06/09/17 06:00 06/09/17 06:00 06/09/17 06:00 06/09/17 06:00 Intake and Output: 06/09/17 06/09/17 06:59 18:59 Intake Total 140 Output Total 0 Balance 140 - Medications Medications: Current Medications Amiodarone HCl (Cordarone) 400 mg PO BID [facility] Last Admin: 06/08/17 17:39 Dose: 400 mg Apixaban (Eliquis) 2.5 mg PO BID [facility] PRN Reason: Protocol Last Admin: 06/08/17 17:39 Dose: 2.5 mg Artificial Tears (Artificial Tears) 0 ml OU BID [facility] Last Admin: 06/08/17 21:29 Dose: 1 drop Aspirin (Aspirin Chewable) 81 mg PO DAILY [facility] Last Admin: 06/08/17 09:20 Dose: 81 mg Atorvastatin Calcium (Lipitor) 40 mg PO DIN [facility] Last Admin: 06/08/17 16:04 Dose: 40 mg Clonazepam (Klonopin) 0.5 mg PO BID [facility] PRN Reason: Protocol Last Admin: 06/08/17 21:36 Dose: 0.5 mg Folic Acid (Folic Acid) 1 mg PO DAILY [facility] Last Admin: 06/08/17 09:21 Dose: 1 mg Furosemide (Lasix) 20 mg IVP Q12 [facility] Last Admin: 06/08/17 21:29 Dose: 20 mg Gabapentin (Neurontin) 300 mg PO DAILY [facility] PRN Reason: Protocol Last Admin: 06/08/17 21:36 Dose: 300 mg Metoprolol Tartrate (Lopressor) 5 mg IVP Q4 PRN PRN Reason: HR > 115 Last Admin: 06/07/17 21:22 Dose: 5 mg Non-Formulary Medication (Leflunomide [Arava]) 20 mg PO DAILY [facility] Last Admin: 06/08/17 09:23 Dose: Not Given (Propylene Glycol [ Systane Ultra] 1 Drp ) (Homemed) 1 drp OU BID [facility] Last Admin: 06/08/17 18:08 Dose: Not Given Dorzolamine/ Timolol ((Homemed)) 1 drp OS BID [facility] Last Admin: 06/08/17 17:40 Dose: 1 drp Pantoprazole Sodium (Protonix Ec Tab) 40 mg PO 0600 [facility] Last Admin: 06/09/17 05:58 Dose: 40 mg Spironolactone (Aldactone) 25 mg PO DAILY [facility] Last Admin: 06/08/17 09:20 Dose: 25 mg Tiotropium [place] (Spiriva) 18 mcg IH DAILY [facility] Last Admin: 06/08/17 10:37 Dose: 18 mcg Verapamil HCl (Calan Tab) 40 mg PO TID [facility] Last Admin: 06/08/17 17:39 Dose: 40 mg Verapamil HCl (Verapamil Inj) 2.5 mg IVP Q6H PRN PRN Reason: for heart rate >130 - Labs Labs: 06/08/17 06:00 06/08/17 06:00 PT 11.4 Seconds (9.9-11.8) 06/06/17 15:45 INR 1.06 (0.93-1.08) 06/06/17 15:45 APTT 69.3 Seconds (23.7-30.8) H 06/07/17 08:30 Attending/Attestation - Attestation I have personally seen and examined this patient.: Yes I have fully participated in the care of the patient.: Yes I have reviewed all pertinent clinical information, including history, physical exam and plan: Yes Notes (Text): 06/09/17 10:11 Patient was seen and examined with medical assistant internal medicine. Agreed with resident assessment and plan. 81 F with PMH HTN, HLD, restless leg syndrome, anxiety, lung cancer (s/p lobe resection 2012), post operative transient AF was admitted with AF with RVR , elevated troponin suggestive of NSEMI /Demand ischemia from tachycardia.Patient underwent Cardiac cath today that reveal non obstructive CAD . Echo showed EF 35% and Moderate TR.Patient has been started on Amiodrone.If patient will not be converted to NSR, then she will be scheduled for cardioversion on Saturday.Patient case was discussed with cardiology over the phone. Management plan was discussed in detail with patient and family. Education was provided. 06/09/17 10:12
[2017-06-08] MEDS: Aritificial Tears (15ml) OU SCH (21:29)
--- NOTE | 2017-06-09 00:05 | CARD ---
APPROVED REPORT EXAM: Two-dimensional and M-mode echocardiogram with Doppler and color Doppler. INDICATION Atrial Fibrillation Congestive Heart Failure 2D DIMENSIONS Left Atrium (2D)4.6 (1.6-4.0cm)IVSd1.2 (0.7-1.1cm) LVDd3.8 (3.9-5.9cm)PWd1.1 (0.7-1.1cm) M-Mode DIMENSIONS Aortic Root3.60 (2.2-3.7cm)Aortic Cusp Exc.1.90 (1.5-2.0cm) Aortic Valve AoV Peak Wmylodus537.0cm/Kana Peak GR.5mmHg Mitral Valve E/A ratio0.0 TDI E/Lateral E'0.0E/Medial E'0.0 Pulmonary Valve PV Peak Ujvjmgft96.0cm/sPV Peak Grad.2mmHg Tricuspid Valve TR Peak [id number]/sRAP [id number] Peak Gr.46mmHg [id number] LEFT VENTRICLE The left ventricle is normal size. There is borderline to mild concentric left ventricular hypertrophy. The systolic function is moderately impaired.EF-35% There is mild to moderate hypokinesis in the apical anterior wall. a Fib No left ventricle thrombus noted on this study. There is no ventricular septal defect visualized. There is no left ventricular aneurysm. There is no mass noted in the left ventricle. RIGHT VENTRICLE The right ventricle is normal size. There is normal right ventricular wall thickness. The right ventricular systolic function is normal. ATRIA The left atrium is mildly dilated. The right atrium size is normal. The interatrial septum is intact with no evidence for an atrial septal defect. AORTIC VALVE The aortic valve is thickened but opens well. No aortic regurgitation is present. There is no aortic valvular stenosis. There is no aortic valvular vegetation. MITRAL VALVE The mitral valve is thickened but opens well. Mitral regurgitation is mild. There is no mitral valve stenosis. There is no evidence of mitral valve prolapse. TRICUSPID VALVE The tricuspid valve leaflets are thickened , but open well. There is moderate tricuspid regurgitation.RVSP-56 mmof Hg There is mild to moderate pulmonary hypertension. There is no tricuspid valve stenosis. There is no tricuspid valve prolapse or vegetation. PULMONIC VALVE The pulmonary valve is normal in structure. There is trace pulmonic valvular regurgitation. There is no pulmonic valvular stenosis. GREAT VESSELS The aortic root is normal in size. The ascending aorta is normal in size. The pulmonary artery is normal. The IVC is normal in size and collapses >50% with inspiration. PERICARDIAL EFFUSION There is no pleural effusion. There is no pericardial effusion. <Conclusion> The left ventricle is normal size. There is borderline to mild concentric left ventricular hypertrophy. The systolic function is moderately impaired.EF-35% No aortic regurgitation is present. Mitral regurgitation is mild. The IVC is normal in size and collapses >50% with inspiration. There is no pericardial effusion. No thrombus or vegetation npted There is moderate tricuspid regurgitation.RVSP-56 mmof Hg There is mild to moderate pulmonary hypertension.
[2017-06-09] MEDS: Pantoprazole 40 mg EC Tab PO SCH (05:58)
[2017-06-09] MEDS: Aritificial Tears (15ml) OU SCH ×2 (10:07→18:13)
--- NOTE | 2017-06-09 10:13 | CP.PCM.PN ---
<Angelica Beltran - Last Filed: 06/09/17 10:31> Subjective - Date & Time of Evaluation Date of Evaluation: 06/09/17 Time of Evaluation: 08:25 - Subjective Subjective: Angelica Beltran DO, PGY-1, Internal Medicine, Hospitalist Service Patient seen and examined at bedside. Per nursing no acute events overnight. Patient is doing well, tolerating diet. Reports leg swelling is improving. Denies any fevers, chills, cp, palpitations, sob, abdominal pain, urinary symptoms. Objective - Vital Signs/Intake and Output Vital Signs (last 24 hours): Temp Pulse Resp BP Pulse Ox 98.1 F 106 H 19 127/76 94 L 06/09/17 06:00 06/09/17 06:00 06/09/17 06:00 06/09/17 06:00 06/09/17 06:00 Intake and Output: 06/09/17 06/09/17 06:59 18:59 Intake Total 140 Output Total 0 Balance 140 - Medications Medications: Current Medications Amiodarone HCl (Cordarone) 400 mg PO BID [facility] Last Admin: 06/08/17 17:39 Dose: 400 mg Apixaban (Eliquis) 2.5 mg PO BID [facility] PRN Reason: Protocol Last Admin: 06/08/17 17:39 Dose: 2.5 mg Artificial Tears (Artificial Tears) 0 ml OU BID [facility] Last Admin: 06/08/17 21:29 Dose: 1 drop Aspirin (Aspirin Chewable) 81 mg PO DAILY [facility] Last Admin: 06/08/17 09:20 Dose: 81 mg Atorvastatin Calcium (Lipitor) 40 mg PO DIN [facility] Last Admin: 06/08/17 16:04 Dose: 40 mg Clonazepam (Klonopin) 0.5 mg PO BID [facility] PRN Reason: Protocol Last Admin: 06/08/17 21:36 Dose: 0.5 mg Folic Acid (Folic Acid) 1 mg PO DAILY [facility] Last Admin: 06/08/17 09:21 Dose: 1 mg Furosemide (Lasix) 20 mg IVP Q12 [facility] Last Admin: 06/08/17 21:29 Dose: 20 mg Gabapentin (Neurontin) 300 mg PO DAILY [facility] PRN Reason: Protocol Last Admin: 06/08/17 21:36 Dose: 300 mg Metoprolol Tartrate (Lopressor) 5 mg IVP Q4 PRN PRN Reason: HR > 115 Last Admin: 06/07/17 21:22 Dose: 5 mg Non-Formulary Medication (Leflunomide [Arava]) 20 mg PO DAILY [facility] Last Admin: 06/08/17 09:23 Dose: Not Given (Propylene Glycol [ Systane Ultra] 1 Drp ) (Homemed) 1 drp OU BID [facility] Last Admin: 06/08/17 18:08 Dose: Not Given Dorzolamine/ Timolol ((Homemed)) 1 drp OS BID [facility] Last Admin: 06/08/17 17:40 Dose: 1 drp Pantoprazole Sodium (Protonix Ec Tab) 40 mg PO 0600 [facility] Last Admin: 06/09/17 05:58 Dose: 40 mg Spironolactone (Aldactone) 25 mg PO DAILY [facility] Last Admin: 06/08/17 09:20 Dose: 25 mg Tiotropium [place] (Spiriva) 18 mcg IH DAILY [facility] Last Admin: 06/08/17 10:37 Dose: 18 mcg Verapamil HCl (Calan Tab) 40 mg PO TID [facility] Last Admin: 06/08/17 17:39 Dose: 40 mg Verapamil HCl (Verapamil Inj) 2.5 mg IVP Q6H PRN PRN Reason: for heart rate >130 - Labs Labs: 06/08/17 06:00 06/08/17 06:00 PT 11.4 Seconds (9.9-11.8) 06/06/17 15:45 INR 1.06 (0.93-1.08) 06/06/17 15:45 APTT 69.3 Seconds (23.7-30.8) H 06/07/17 08:30 - Constitutional Appears: Well, No Acute Distress - Head Exam Head Exam: ATRAUMATIC, NORMAL INSPECTION - Eye Exam Eye Exam: EOMI, Normal appearance Pupil Exam: NORMAL ACCOMODATION - ENT Exam ENT Exam: Mucous Membranes Moist - Neck Exam Neck Exam: Full ROM - Respiratory Exam Respiratory Exam: Clear to Ausculation Bilateral, NORMAL BREATHING PATTERN. absent: Rales, Rhonchi, Wheezes - Cardiovascular Exam Cardiovascular Exam: Tachycardia, Irregular Rhythm, +S1, +S2 - GI/Abdominal Exam GI & Abdominal Exam: Soft, Normal Bowel Sounds. absent: Guarding, Rigid, Tenderness - Extremities Exam Extremities Exam: Full ROM, Pedal Edema. absent: Calf Tenderness, Tenderness - Back Exam Back Exam: NORMAL INSPECTION - Neurological Exam Neurological Exam: Alert, Awake, Oriented x3 - Psychiatric Exam Psychiatric exam: Normal Affect, Normal Mood - Skin Skin Exam: Normal Color, Warm Assessment and Plan - Assessment and Plan (Free Text) Assessment: 81 F with PMH HTN, HLD, restless leg syndrome, anxiety, lung cancer (s/p lobe resection 2012), post operative transient AF was admitted with AF with RVR , elevated troponin suggestive of NSTEMI /Demand ischemia from tachycardia. Plan: 1) Atrial fibrillation with RVR - Continue Amiodarone 400 mg BID - Continue Verapamil 40 mg TID - Continue Eliquis 2.5 mg BID - F/U AM EKG - CT chest: negative for PE - Cardiology on consult, f/u recommendations - Per cardio, If rhythm does not convert to NSR, REECE and possible DC cardioversion on Saturday. - EF estimated to be 25-30% during Coronary Catherization 2) NSTEMI, Elevated troponins - S/P cardiac catherization, nonobstructing CAD - Coronary showed no significant stenosis - Continue Lipitor 40mg daily - Continue ASA 3) Congestive Heart Failure, Systolic - Echo suggestive systolic heart failure with EF 35% - Lasix 20 mg IVP BID - Spirinolactone 25 mg PO Daily - B/L LE edema, improving 4) Hypokalemia - F/U am labs - Repleat as needed 5) Anxiety - Continue Klonopin as needed 6) Hx of Lung CA, s/p resection - Continue spiriva 7) GI/DVT ppx -Protonix -Eliquis 2.5 mg BID <Shivani VILLALTA,Effie - Last Filed: 06/09/17 14:43> Objective - Vital Signs/Intake and Output Vital Signs (last 24 hours): Temp Pulse Resp BP Pulse Ox 98.6 F 86 20 133/83 94 L 06/09/17 12:00 06/09/17 12:00 06/09/17 12:00 06/09/17 12:00 06/09/17 06:00 Intake and Output: 06/09/17 06/09/17 06:59 18:59 Intake Total 140 Output Total 0 Balance 140 - Medications Medications: Current Medications Amiodarone HCl (Cordarone) 400 mg PO BID [facility] Last Admin: 06/09/17 10:07 Dose: 400 mg Apixaban (Eliquis) 2.5 mg PO BID [facility] PRN Reason: Protocol Last Admin: 06/09/17 10:13 Dose: 2.5 mg Artificial Tears (Artificial Tears) 0 ml OU BID [facility] Last Admin: 06/09/17 10:07 Dose: 1 drop Aspirin (Aspirin Chewable) 81 mg PO DAILY [facility] Last Admin: 06/09/17 10:13 Dose: 81 mg Atorvastatin Calcium (Lipitor) 40 mg PO DIN [facility] Last Admin: 06/08/17 16:04 Dose: 40 mg Clonazepam (Klonopin) 0.5 mg PO BID [facility] PRN Reason: Protocol Last Admin: 06/09/17 10:24 Dose: 0.5 mg Folic Acid (Folic Acid) 1 mg PO DAILY [facility] Last Admin: 06/09/17 10:24 Dose: 1 mg Furosemide (Lasix) 20 mg IVP Q12 [facility] Last Admin: 06/09/17 10:23 Dose: 20 mg Gabapentin (Neurontin) 300 mg PO DAILY [facility] PRN Reason: Protocol Last Admin: 06/09/17 10:24 Dose: 300 mg Metoprolol Tartrate (Lopressor) 5 mg IVP Q4 PRN PRN Reason: HR > 115 Last Admin: 06/07/17 21:22 Dose: 5 mg Non-Formulary Medication (Leflunomide [Arava]) 20 mg PO DAILY [facility] Last Admin: 06/09/17 10:26 Dose: Not Given (Propylene Glycol [ Systane Ultra] 1 Drp ) (Homemed) 1 drp OU BID [facility] Last Admin: 06/09/17 10:25 Dose: Not Given Dorzolamine/ Timolol ((Homemed)) 1 drp OS BID [facility] Last Admin: 06/09/17 10:24 Dose: 1 drp Pantoprazole Sodium (Protonix Ec Tab) 40 mg PO 0600 [facility] Last Admin: 06/09/17 05:58 Dose: 40 mg Spironolactone (Aldactone) 25 mg PO DAILY [facility] Last Admin: 06/09/17 10:13 Dose: 25 mg Tiotropium [place] (Spiriva) 18 mcg IH DAILY [facility] Last Admin: 06/09/17 10:23 Dose: 18 mcg Verapamil HCl (Calan Tab) 40 mg PO TID [facility] Last Admin: 06/09/17 10:53 Dose: 40 mg Verapamil HCl (Verapamil Inj) 2.5 mg IVP Q6H PRN PRN Reason: for heart rate >130 - Labs Labs: 06/09/17 10:30 06/09/17 10:30 PT 11.4 Seconds (9.9-11.8) 06/06/17 15:45 INR 1.06 (0.93-1.08) 06/06/17 15:45 APTT 69.3 Seconds (23.7-30.8) H 06/07/17 08:30 Attending/Attestation - Attestation I have personally seen and examined this patient.: Yes I have fully participated in the care of the patient.: Yes I have reviewed all pertinent clinical information, including history, physical exam and plan: Yes Notes (Text): 06/09/17 14:41 Patient was seen and 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 Agreed with resident assessment and plan. 81 F with PMH HTN, HLD, , anxiety, lung cancer (s/p lobe resection 2012), post operative transient AF was admitted with AF with RVR , elevated troponin suggestive of NSEMI /Demand ischemia from tachycardia.Patient underwent Cardiac cath Saturday06/07/17 that reveal non obstructive CAD . Echo showed EF 35% and Moderate TR.Patient was started on Amiodrone.Rate is better but still in AF. If patient will not be converted to NSR, then she will be scheduled for cardioversion on Saturday. CHF is improving, leg swelling and dyspnea has significantly improved.Renal functions are stable. Management plan was discussed in detail with patient and family. Education was provided.
[2017-06-09] MEDS: Tiotropium 18 mcg Cap For Inhalation IH SCH (10:23)
[2017-06-09] MEDS: TIMOLOL OS SCH (10:24)
[2017-06-09] MEDS: [UNRECOGNIZED DRUG - OTHER] OS SCH (10:24)
[2017-06-09 10:47] LABS: HEMOGLOBIN 14.2 g/dL (12.0-16.0); MEAN CORPUSCULAR HEMOGLOBIN 29.8 pg (25.0-35.0); MEAN CORPUSCULAR HGB CONC 33.9 g/dl (31.0-37.0); MEAN PLATELET VOLUME 12.1 fl (7.0-11.0); RBC 4.76 10^6/uL (3.5-6.1); RED CELL DISTRIBUTION WIDTH 13.7 % (11.5-14.5); WHITE BLOOD COUNT 6.7 10^3/ul (4.5-11.0)
[2017-06-09 10:54] LABS: BLOOD UREA NITROGEN 12 mg/dL (7-21); CALCIUM 9.2 mg/dL (8.4-10.5); GFR AFRICAN-AMERICAN > 60; GFR NON-AFRICAN AMERICAN > 60; MAGNESIUM 1.7 mg/dL (1.7-2.2)
--- NOTE | 2017-06-09 11:19 | PN ---
DATE: 06/09/2017 Cardiology follow up (with Dr. Effie Bettencourt). SUBJECTIVE: The patient is asymptomatic. PHYSICAL EXAMINATION VITAL SIGNS: Blood pressure of 127/76, heart rate is in the 90s and atrial fibrillation NECK: Negative JVD. LUNGS: Without rales. HEART: Reveals S1 and S2. EXTREMITIES: Without edema. LABORATORY DATA: Hemoglobin is 13.5. Chemistries were not drawn today. IMPRESSION 1. Atrial fibrillation. 2. Heart rate is better. 3. Nonobstructive coronary artery disease. 4. Dilated cardiomyopathy. 5. Recent [id number] elevation myocardial infarction. PLAN: Given these findings, the patient is tolerating her higher doses of amiodarone. CT scan of the chest reveals no evidence for pulmonary embolism. The patient is for cardioversion in the morning with Dr. Bettencourt, if the patient does not convert to normal sinus rhythm. In the morning, we will transfer the care back to Dr. Bettencourt. Jordan Simental MD
--- NOTE | 2017-06-09 13:42 | CARD ---
APPROVED REPORT EKG Measurement Heart [id number] <Conclusion> Atrial fibrillation with rapid ventricular response Lateral infarct, age undetermined T wave abnormality, consider inferior ischemia or digitalis effect T wave abnormality, consider anterior ischemia or digitalis effect Abnormal ECG
[2017-06-10] MEDS: Pantoprazole 40 mg EC Tab PO SCH (05:17)
[2017-06-10 07:10] LABS: HEMOGLOBIN 14.2 g/dL (12.0-16.0); MEAN CELL VOLUME 88.7 fl (80.0-105.0); MEAN CORPUSCULAR HEMOGLOBIN 29.7 pg (25.0-35.0); MEAN CORPUSCULAR HGB CONC 33.5 g/dl (31.0-37.0); MEAN PLATELET VOLUME 11.5 fl (7.0-11.0); RBC 4.78 10^6/uL (3.5-6.1); RED CELL DISTRIBUTION WIDTH 13.9 % (11.5-14.5); WHITE BLOOD COUNT 7.5 10^3/ul (4.5-11.0)
[2017-06-10 07:11] LABS: ALB/GLOB RATIO 1.4 (1.1-1.8); ALBUMIN 3.7 g/dL (3.0-4.8); ALT/SGPT 39 U/L (7-56); AST/SGOT 36 U/L (15-39); BLOOD UREA NITROGEN 16 mg/dL (7-21); CALCIUM 9.2 mg/dL (8.4-10.5); GFR AFRICAN-AMERICAN > 60; GFR NON-AFRICAN AMERICAN > 60; MAGNESIUM 1.4 mg/dL (1.7-2.2)
--- NOTE | 2017-06-10 07:52 | CON ---
DATE: 06/07/2017 REFERRING PHYSICIAN: Dr. Parrish. REASON FOR CONSULTATION: Followup of atrial fibrillation, new onset non-STEMI, cardiac evaluation. BRIEF CLINICAL HISTORY: This is an 81-year-old female, who lives independently with history of hypertension, hyperlipidemia, anxiety disorder, restless legs syndrome, history of lung CA status post lobe resection 4 years ago in [place], who had postop course complicated by AFib secondary to electrolyte imbalance and postop. After this, the patient never had AFib, was in usual state of health. On Saturday morning, she was going to bed but slipper caught in between the carpet and fell down and got injury in the left shoulder. The next morning, the patient woke up and broke into sweats with some chest pain and later on found to be in palpitation and went to see yesterday who found her in the AFib, ,so the patient was advised admission. The patient came to the ER, found to be with rapid ventricular rate. She was started on heparin and admiited for further management The patient's troponin was sent and found to be abnormal. First troponin was less than 0.01, second was 0.47, and repeat is pending. On further interrogation, the patient states there is some retrosternal discomfort and funny sensation she felt. Denies any dyspnea on exertion or chest pain on exertion prior to this episode of cold sweat. PAST MEDICAL HISTORY: Significant for lung CA status post resection 4 years ago in [place], history of anxiety disorder, history of restless legs syndrome, hypertension, hyperlipidemia being followed by . PAST SURGICAL HISTORY: Significant for right knee replacement, left hip replacement, right lung lobectomy in 2012 in [place]. SOCIAL HISTORY: Ex-smoker 1 pack a day for 55 pack years, quit 7 years ago. Denies any history of alcohol abuse. Denies any history of substance abuse. ALLERGIES: NO KNOWN DRUG ALLERGIES. FAMILY HISTORY: At this stage of life, noncontributory. PREVIOUS CARDIAC WORKUP: As follows; the patient had a stress test on 03/28/2016 that was a Lexiscan. The patient had a normal myocardial perfusion study with ejection fraction of 64% dated 03/28/2016. The patient had echocardiography also on 03/21/2016 that showed normal chambers and ejection fraction of 55-60%, diastolic dysfunction, mitral regurgitation to mild tricuspid regurgitation, RV systolic blood pressure of 34. The patient had a bilateral carotid duplex on 03/21/2016 that shows bilateral 20-29% proximal ICA stenosis. REVIEW OF SYSTEMS: As per HPI. CURRENT MEDICATIONS: The patient at home was taking Spiriva, MiraLax, amlodipine 5 mg daily, spironolactone, Singulair, gabapentin, folic acid, and Klonopin. PHYSICAL EXAMINATION VITAL SIGNS: Temperature afebrile, heart rate 112, blood pressure 127/76. HEENT: PERRLA. Extraocular muscles intact. NECK: Supple. No carotid bruit. No thyromegaly. CHEST: Clear to auscultation. HEART: S1 and S2, regular. ABDOMEN: Soft. EXTREMITIES: Clubbing and cyanosis negative. LABORATORY DATA: EKG showed AFib, heart rate of 127. Blood workup as follows. WBC 7.5, hemoglobin 14, hematocrit 41.1, platelet count 138. Chemistry shows sodium of 132, potassium 4.2, chloride 99, carbon dioxide 23, anion gap of 15, BUN 14, creatinine 0.7. Troponin 0.01, repeat 0.47, now 0.56. IMPRESSION: Unstable angina, acute coronary syndrome, new onset atrial fibrillation, diabetes, hypertension, hyperlipidemia. Discussed with the patient's daughter and the patient herself cardiac catheterization, risks, benefits, alternatives discussed with the patient. The patient is agreeable for cardiac catheterization. We will start load with Plavix and aspirin, discontinue heparin at 5 and consider cardiac catheterization at 3 p.m. We will follow with you. Also, start some beta-luis f as well as verapamil to control the heart rate. We will DS verapamil because of the COPD and atrial fibrillation with rapid ventricular rate and avoid DuoNeb nebulizer treatment. If needed, we will give Xopenex. We will keep n.p.o. after the breakfast. Thank you Dr. Chau for providing us the opportunity in taking care of the patient. Effie Bettencourt MD [facility]
[2017-06-10] MEDS ORDERED: Magnesium Sulfate 2 GM in Sodium Chloride 0.9% 100 ML IVPB STA (08:23)
[2017-06-10] MEDS: Tiotropium 18 mcg Cap For Inhalation IH SCH (09:16)
[2017-06-10] MEDS: Aritificial Tears (15ml) OU SCH ×2 (09:17→18:54)
[2017-06-10] MEDS: TIMOLOL OS SCH ×2 (09:18→18:57)
[2017-06-10] MEDS: [UNRECOGNIZED DRUG - OTHER] OS SCH ×2 (09:18→18:57)
[2017-06-10] MEDS ORDERED: Magnesium Oxide 400 mg Tab UD PO SCH (10:30)
--- NOTE | 2017-06-10 11:13 | CP.PCM.PN ---
<Angelica Beltran - Last Filed: 06/10/17 11:18> Subjective - Date & Time of Evaluation Date of Evaluation: 06/10/17 Time of Evaluation: 07:45 - Subjective Subjective: Angelica Beltran DO, PGY-1, Internal Medicine, Hospitalist Service Patient seen and examined at bedside. Per nursing no acute events overnight. Patient is doing well, no complaints at this time. Denies headache, dizziness, cp, palpitations, abdominal pain, urinary symptoms, changes in bowel habits. NPO for REECE with DC cardioversion today. Objective - Vital Signs/Intake and Output Vital Signs (last 24 hours): Temp Pulse Resp BP Pulse Ox 97.8 F 112 H 19 124/72 92 L 06/10/17 06:00 06/10/17 10:00 06/10/17 06:00 06/10/17 06:00 06/10/17 06:00 Intake and Output: 06/10/17 06/10/17 06:59 18:59 Intake Total 0 Output Total 0 Balance 0 - Medications Medications: Current Medications Amiodarone HCl (Cordarone) 400 mg PO BID [facility] Last Admin: 06/10/17 09:11 Dose: Not Given Apixaban (Eliquis) 2.5 mg PO BID [facility] PRN Reason: Protocol Last Admin: 06/10/17 09:11 Dose: Not Given Artificial Tears (Artificial Tears) 0 ml OU BID [facility] Last Admin: 06/10/17 09:17 Dose: 1 drop Aspirin (Aspirin Chewable) 81 mg PO DAILY [facility] Last Admin: 06/10/17 09:11 Dose: Not Given Atorvastatin Calcium (Lipitor) 40 mg PO DIN [facility] Last Admin: 06/09/17 18:12 Dose: 40 mg Clonazepam (Klonopin) 0.5 mg PO BID [facility] PRN Reason: Protocol Last Admin: 06/10/17 09:12 Dose: Not Given Folic Acid (Folic Acid) 1 mg PO DAILY [facility] Last Admin: 06/10/17 09:11 Dose: Not Given Furosemide (Lasix) 40 mg PO DAILY [facility] Last Admin: 06/10/17 10:00 Dose: Not Given Gabapentin (Neurontin) 300 mg PO DAILY [facility] PRN Reason: Protocol Last Admin: 06/10/17 09:12 Dose: Not Given Lisinopril (Zestril) 5 mg PO DAILY [facility] Magnesium Oxide (Mag-Ox) 400 mg PO DAILY [facility] Metoprolol Tartrate (Lopressor) 5 mg IVP Q4 PRN PRN Reason: HR > 115 Last Admin: 06/07/17 21:22 Dose: 5 mg Non-Formulary Medication (Leflunomide [Arava]) 20 mg PO DAILY [facility] Last Admin: 06/10/17 09:12 Dose: Not Given (Propylene Glycol [ Systane Ultra] 1 Drp ) (Homemed) 1 drp OU BID [facility] Last Admin: 06/10/17 09:18 Dose: Not Given Dorzolamine/ Timolol ((Homemed)) 1 drp OS BID [facility] Last Admin: 06/10/17 09:18 Dose: 1 drp Pantoprazole Sodium (Protonix Ec Tab) 40 mg PO 0600 [facility] Last Admin: 06/10/17 05:17 Dose: 40 mg Spironolactone (Aldactone) 25 mg PO DAILY [facility] Last Admin: 06/10/17 09:10 Dose: Not Given Tiotropium Mary Alice (Spiriva) 18 mcg IH DAILY [facility] Last Admin: 06/10/17 09:16 Dose: 18 mcg Verapamil HCl (Calan Tab) 40 mg PO TID [facility] Last Admin: 06/10/17 09:11 Dose: Not Given Verapamil HCl (Verapamil Inj) 2.5 mg IVP Q6H PRN PRN Reason: for heart rate >130 - Labs Labs: 06/10/17 06:30 06/10/17 06:30 PT 11.4 Seconds (9.9-11.8) 06/06/17 15:45 INR 1.06 (0.93-1.08) 06/06/17 15:45 APTT 69.3 Seconds (23.7-30.8) H 06/07/17 08:30 - Constitutional Appears: Well, Non-toxic, No Acute Distress - Head Exam Head Exam: ATRAUMATIC, NORMAL INSPECTION - Eye Exam Eye Exam: EOMI, Normal appearance Pupil Exam: NORMAL ACCOMODATION - ENT Exam ENT Exam: Mucous Membranes Moist - Neck Exam Neck Exam: Full ROM - Respiratory Exam Respiratory Exam: Decreased Breath Sounds, NORMAL BREATHING PATTERN. absent: Rales, Rhonchi, Wheezes - Cardiovascular Exam Cardiovascular Exam: Tachycardia, Irregular Rhythm, +S1, +S2 - GI/Abdominal Exam GI & Abdominal Exam: Soft, Normal Bowel Sounds. absent: Distended, Rigid, Tenderness, Rebound - Extremities Exam Extremities Exam: Full ROM, Pedal Edema. absent: Calf Tenderness Additional comments: +2 LE edema B/L - Back Exam Back Exam: NORMAL INSPECTION - Neurological Exam Neurological Exam: Alert, Awake, Oriented x3 - Psychiatric Exam Psychiatric exam: Normal Affect, Normal Mood - Skin Skin Exam: Normal Color, Warm Assessment and Plan - Assessment and Plan (Free Text) Assessment: 81 F with PMH HTN, HLD, restless leg syndrome, anxiety, lung cancer (s/p lobe resection 2012), post operative transient AF was admitted with AF with RVR , elevated troponin suggestive of NSTEMI /Demand ischemia from tachycardia. Plan: 1) Atrial fibrillation with RVR - Continue Amiodarone 400 mg BID - Continue Verapamil 40 mg TID - Continue Eliquis 2.5 mg BID - CT chest: negative for PE - Cardiology on consult, f/u recommendations - Patient NPO for REECE with DC Cardioversion with cardiology today - Per Cardio, patient will need to be on anticoagulation for 2 weeks 2) NSTEMI, Elevated troponins - S/P cardiac catherization, nonobstructing CAD - Coronary showed no significant stenosis - EF estimated to be 25-30% during Coronary Catherization - Continue Lipitor 40mg daily - Continue ASA 3) Congestive Heart Failure, Systolic - Echo suggestive systolic heart failure with EF 35% - Lasix 40 mg PO BID - Spirinolactone 25 mg PO Daily - Will start FRITZ inhibitor and will consider adding beta luis f for optimization - B/L LE edema, improving 4) Hypokalemia - F/U am labs - Repleat as needed 5) Hypomagnesemia -Mg 1.2, will repleat -F/U mag level tomorrow 6) Anxiety - Continue Klonopin as needed 7) Hx of Lung CA, s/p resection - Continue spiriva 8) GI/DVT ppx - Protonix - Eliquis 2.5 mg BID <Effie Parrish MD - Last Filed: 06/10/17 13:28> Objective - Vital Signs/Intake and Output Vital Signs (last 24 hours): Temp Pulse Resp BP Pulse Ox 98.4 F 61 18 139/74 95 06/10/17 13:00 06/10/17 13:00 06/10/17 13:00 06/10/17 13:00 06/10/17 13:00 Intake and Output: 06/10/17 06/10/17 06:59 18:59 Intake Total 0 200 Output Total 0 Balance 0 200 - Medications Medications: Current Medications Amiodarone HCl (Cordarone) 400 mg PO BID [facility] Last Admin: 06/10/17 09:11 Dose: Not Given Apixaban (Eliquis) 2.5 mg PO BID [facility] PRN Reason: Protocol Last Admin: 06/10/17 09:11 Dose: Not Given Artificial Tears (Artificial Tears) 0 ml OU BID [facility] Last Admin: 06/10/17 09:17 Dose: 1 drop Aspirin (Aspirin Chewable) 81 mg PO DAILY [facility] Last Admin: 06/10/17 09:11 Dose: Not Given Atorvastatin Calcium (Lipitor) 40 mg PO DIN [facility] Last Admin: 06/09/17 18:12 Dose: 40 mg Clonazepam (Klonopin) 0.5 mg PO BID [facility] PRN Reason: Protocol Last Admin: 06/10/17 09:12 Dose: Not Given Folic Acid (Folic Acid) 1 mg PO DAILY [facility] Last Admin: 06/10/17 09:11 Dose: Not Given Furosemide (Lasix) 40 mg PO DAILY [facility] Last Admin: 06/10/17 10:00 Dose: Not Given Gabapentin (Neurontin) 300 mg PO DAILY [facility] PRN Reason: Protocol Last Admin: 06/10/17 09:12 Dose: Not Given Sodium Chloride (Sodium Chloride 0.9%) 1,000 mls @ 50 mls/hr IV .Q20H [facility] Stop: 06/10/17 14:00 Lisinopril (Zestril) 5 mg PO DAILY [facility] Magnesium Oxide (Mag-Ox) 400 mg PO DAILY [facility] Metoprolol Tartrate (Lopressor) 5 mg IVP Q4 PRN PRN Reason: HR > 115 Last Admin: 06/07/17 21:22 Dose: 5 mg Non-Formulary Medication (Leflunomide [Arava]) 20 mg PO DAILY [facility] Last Admin: 06/10/17 09:12 Dose: Not Given (Propylene Glycol [ Systane Ultra] 1 Drp ) (Homemed) 1 drp OU BID [facility] Last Admin: 06/10/17 09:18 Dose: Not Given Dorzolamine/ Timolol ((Homemed)) 1 drp OS BID [facility] Last Admin: 06/10/17 09:18 Dose: 1 drp Pantoprazole Sodium (Protonix Ec Tab) 40 mg PO 0600 [facility] Last Admin: 06/10/17 05:17 Dose: 40 mg Spironolactone (Aldactone) 25 mg PO DAILY [facility] Last Admin: 06/10/17 09:10 Dose: Not Given Tiotropium Mary Alice (Spiriva) 18 mcg IH DAILY [facility] Last Admin: 06/10/17 09:16 Dose: 18 mcg Verapamil HCl (Calan Tab) 40 mg PO TID [facility] Last Admin: 06/10/17 09:11 Dose: Not Given Verapamil HCl (Verapamil Inj) 2.5 mg IVP Q6H PRN PRN Reason: for heart rate >130 - Labs Labs: 06/10/17 06:30 06/10/17 06:30 PT 11.4 Seconds (9.9-11.8) 06/06/17 15:45 INR 1.06 (0.93-1.08) 06/06/17 15:45 APTT 69.3 Seconds (23.7-30.8) H 06/07/17 08:30 Attending/Attestation - Attestation I have personally seen and examined this patient.: Yes I have fully participated in the care of the patient.: Yes I have reviewed all pertinent clinical information, including history, physical exam and plan: Yes Notes (Text): 06/10/17 13:26 Patient was seen and examined with medical record consultant. Agreed with resident assessment and plan. 81 F with PMH HTN, HLD, , anxiety, lung cancer (s/p lobe resection 2012), post operative transient AF was admitted with AF with RVR , elevated troponin suggestive of NSEMI /Demand ischemia from tachycardia.Patient underwent Cardiac cath Saturday06/07/17 that reveal non obstructive CAD . Echo showed EF 35% and Moderate TR.Patient was started on Amiodrone.She underwent successful cardioversion today.We will monitor in telemetry for 24 hour.She is on Apixiban for anticoagulation. CHF is improving, leg swelling and dyspnea has significantly improved.Renal functions are stable.We have changes lasix to PO and also have started patient on Lisinopril. Patient case was discussed with cardiology . Management plan was discussed in detail with patient and family. Education was provided.
[2017-06-10] MEDS ORDERED: Metoprolol 1 mg/ml Inj IVP ONE ×2 (11:29→12:11)
[2017-06-10] MEDS ORDERED: Flumazenil 0.1 mg/ml Inj (5ml) IVP ONE (11:29)
[2017-06-10] MEDS ORDERED: Midazolam 2 MG/2 ML VIAL ONE (11:29)
[2017-06-10] MEDS ORDERED: Naloxone 0.4 mg/ml Inj (Adult) ONE (11:29)
[2017-06-10] MEDS ORDERED: Midazolam 2 MG/2 ML VIAL IV ONE ×3 (11:53→12:08)
[2017-06-10] MEDS ORDERED: Sodium Chloride 0.9% 1,000 ML IV SCH (12:30)
[2017-06-10] MEDS: Magnesium Oxide 400 mg Tab UD PO SCH ×2 (14:39→18:56)
--- NOTE | 2017-06-10 15:54 | CARD ---
APPROVED REPORT EKG Measurement Heart [id number] <Conclusion> Normal sinus rhythm Lateral infarct, age undetermined T wave abnormality, consider anterior ischemia Abnormal ECG
[2017-06-10] MEDS ORDERED: Potassium Chloride 20 mEq ER Tab PO ONE (16:00)
[2017-06-10] MEDS ORDERED: Magnesium Sulfate 2 GM in Sodium Chloride 0.9% 100 ML IVPB ONE (16:00)
--- NOTE | 2017-06-10 18:46 | PN ---
DATE: 06/10/2017 BRIEF CLINICAL HISTORY: This is an 81-year-old female, lives independent, history of lung CA status post lobe resection 4 years ago in [place], admitted with new onset of atrial fibrillation, positive troponin. The patient underwent cardiac catheterization that revealed nonobstructive coronary artery disease. The patient is scheduled today for REECE cardioversion. The patient underwent REECE cardioversion, feels okay. SUBJECTIVE: Not in apparent distress. Denies any chest pain, shortness of breath or any palpitations. OBJECTIVE: GENERAL: Not in apparent distress. VITAL SIGNS: Temperature afebrile, heart rate 114 before REECE cardioversion, blood pressure 110/59. HEENT: PERRLA intact. NECK: Supple. No carotid bruit. No thyromegaly. CHEST: Clear to auscultation. HEART: S1 and S2, regular. ABDOMEN: Soft. EXTREMITIES: Clubbing and cyanosis negative. IMPRESSION: New onset of atrial fibrillation with a rapid ventricular rate, non-ST segment myocardial infarction, status post cardiac catheterization, nonobstructive coronary artery disease. RECOMMENDATION: The patient is going for REECE cardioversion. The patient got 200 joules synchronized cardioversion, converted to normal sinus. The patient is still running low magnesium, hypomagnesemia 1.4. Supplemented 2 grams, we will give 2 more grams of magnesium today. Continue p.o. and simplify the regimen and change verapamil to 120 mg from tomorrow. Change the amiodarone to 200 mg from tomorrow. Continue 400 mg twice today. Continue apixaban 2.5 mg b.i.d. Discussed with the daughter Shae explaining the patient's condition, also mentioned that we will simply the regimen. The patient was on diuretics at home, possibly that causes more recurrent hypomagnesemia as per the daughters and nurse. We will follow with you. We will simplify regimen and supplement magnesium and if stable, possible discharge home tomorrow. Thank you Dr. Parrish for providing me the opportunity in taking care of Maribel Aguilera. Effie Bettencourt MD
--- NOTE | 2017-06-10 20:29 | CARD ---
APPROVED REPORT EXAM: Transesophageal echocardiogram with color flow Doppler and Synchronized Cardioversion. INDICATION Atrial Fibrillation Mitral Valve E/A ratio0.0 TDI E/Lateral E'0.0E/Medial E'0.0 Tricuspid Valve TR Peak [id number] [id number] Peak Gr.34mmHg [id number] Reason For Test : REECE before Cardioversion PROCEDURE After obtaining informed consent, patient underwent transesophageal echo in the Echo Lab. Type of Sedation : Conscious Sedation Sedation was administered by dr. huntley. Sedation was achieved with Versed and , Fentanyl 2.5 mg and 100 mcg intravenously. Transesophageal probe was inserted and advanced into esophagus without difficulty. Echo enhancement indication: R/O Septal defect. Echo enhancement agent administered: Agitated Saline The REECE was performed without complications. Synchronized Cardioversion attempted: Successful Synchronized Cardioversion acheived with 200 Joules after first attempt(s). Rhythm following Synchronized Cardioversion: Throughout the procedure, the blood pressure, pulse oximetry, cardiac rhythm, and rate were monitored. The patient tolerated the procedure without adverse effects. Recovery from conscious sedation was uneventful and vital signs were stable. LEFT VENTRICLE The left ventricle is normal size. There is normal left ventricular wall thickness. Left ventricle systolic function is mildly to moderately impaired.EF-40 There is global hypokinesis of the left ventricle. Afib No left ventricle thrombus noted on this study. There is no ventricular septal defect visualized. There is no left ventricular aneurysm. There is no mass noted in the left ventricle. RIGHT VENTRICLE The right ventricle is normal size. There is normal right ventricular wall thickness. The right ventricular systolic function is normal. ATRIA The left atrium is mildly dilated. The right atrium size is normal. The interatrial septum is intact with no evidence for an atrial septal defect. AORTIC VALVE The aortic valve is normal in structure. There is trace aortic regurgitation. There is no aortic valvular stenosis. There is no aortic valvular vegetation. MITRAL VALVE The mitral valve leaflets are thickened. There is no evidence of mitral valve prolapse. There is no mitral valve stenosis. Mitral regurgitation is mild. TRICUSPID VALVE The tricuspid valve leaflets display thickening. There is moderate tricuspid regurgitation. There is no tricuspid valve prolapse or vegetation. There is no tricuspid valve stenosis. PULMONIC VALVE The pulmonic valve is borderline thickened. There is trace pulmonic valvular regurgitation. There is no pulmonic valvular stenosis. GREAT VESSELS The aortic root is normal in size. The ascending aorta is normal in size. The pulmonary artery is normal. The IVC is normal in size and collapses >50% with inspiration. PERICARDIAL EFFUSION There is no pericardial effusion. There is no pleural effusion. <Conclusion> LVEF-40%, A fib Intact intra atrial septum by color flow and bubble study. Velocity in NIMISHA>0.4 m/s. 200 Joules synchronized Cardiversion done pt. converted to NSR. Anti coagulation for two weeks if remains in NSR. CC; Dr. Huang.
[2017-06-11 00:04] VITALS: RESP 20
[2017-06-11] MEDS: Pantoprazole 40 mg EC Tab PO SCH (05:01)
[2017-06-11 05:32] VITALS: O2SAT 95
[2017-06-11 07:52] LABS: MEAN CORPUSCULAR HEMOGLOBIN 29.5 pg (25.0-35.0); MEAN CORPUSCULAR HGB CONC 32.7 g/dl (31.0-37.0); MEAN PLATELET VOLUME 11.1 fl (7.0-11.0); RBC 4.41 10^6/uL (3.5-6.1); RED CELL DISTRIBUTION WIDTH 13.9 % (11.5-14.5); WHITE BLOOD COUNT 6.6 10^3/ul (4.5-11.0)
[2017-06-11] MEDS ORDERED: Benzocaine/Menthol (Cepacol) Lozenge MT PRN (08:01)
[2017-06-11 08:09] LABS: BLOOD UREA NITROGEN 18 mg/dL (7-21); CALCIUM 8.9 mg/dL (8.4-10.5); GFR AFRICAN-AMERICAN > 60; GFR NON-AFRICAN AMERICAN > 60; MAGNESIUM 2.2 mg/dL (1.7-2.2)
[2017-06-11] MEDS: Tiotropium 18 mcg Cap For Inhalation IH SCH (09:25)
[2017-06-11] MEDS: Magnesium Oxide 400 mg Tab UD PO SCH ×3 (09:26→17:33)
[2017-06-11] MEDS: Aritificial Tears (15ml) OU SCH ×2 (09:29→17:35)
[2017-06-11] MEDS: TIMOLOL OS SCH ×2 (09:29→17:35)
[2017-06-11] MEDS: [UNRECOGNIZED DRUG - OTHER] OS SCH ×2 (09:29→17:35)
[2017-06-11] MEDS ORDERED: Verapamil 120 mg ER Tab PO SCH (10:00)
--- NOTE | 2017-06-11 11:46 | CARD ---
APPROVED REPORT EKG Measurement Heart [id number] <Conclusion> Normal sinus rhythm Lateral infarct, age undetermined T wave abnormality, consider anterior ischemia Abnormal ECG
--- NOTE | 2017-06-11 12:19 | CP.PCM.DIS ---
<Angelica Beltran - Last Filed: 06/11/17 17:30> Provider - Provider Date of Admission: 06/06/17 16:25 Attending physician: Jett Chau MD Consults: Cardiology: Dr Bettencourt Time Spent in preparation of Discharge (in minutes): 40 Hospital Course - Lab Results Lab Results: Most Recent Lab Values WBC 6.6 10^3/ul (4.5-11.0) 06/11/17 07:30 RBC 4.41 10^6/uL (3.5-6.1) 06/11/17 07:30 Hgb 13.0 g/dL (12.0-16.0) 06/11/17 07:30 Hct 39.7 % (36.0-48.0) 06/11/17 07:30 MCV 90.0 fl (80.0-105.0) 06/11/17 07:30 MCH 29.5 pg (25.0-35.0) 06/11/17 07:30 MCHC 32.7 g/dl (31.0-37.0) 06/11/17 07:30 RDW 13.9 % (11.5-14.5) 06/11/17 07:30 Plt Count 124 10^3/uL (120.0-450.0) 06/11/17 07:30 MPV 11.1 fl (7.0-11.0) H 06/11/17 07:30 Gran % 63.9 % (50.0-68.0) 06/08/17 06:00 Lymph % (Auto) 18.4 % (22.0-35.0) L 06/08/17 06:00 [place] % (Auto) 15.7 % (1.0-6.0) H 06/08/17 06:00 Eos % (Auto) 1.3 % (1.5-5.0) L 06/08/17 06:00 Baso % (Auto) 0.7 % (0.0-3.0) 06/08/17 06:00 Gran # 5.53 (1.4-6.5) 06/08/17 06:00 Lymph # 1.6 (1.2-3.4) 06/08/17 06:00 [place] # 1.4 (0.1-0.6) H 06/08/17 06:00 Eos # 0.1 (0.0-0.7) 06/08/17 06:00 Baso # 0.06 K/mm3 (0.0-2.0) 06/08/17 06:00 PT 11.4 Seconds (9.9-11.8) 06/06/17 15:45 INR 1.06 (0.93-1.08) 06/06/17 15:45 APTT 69.3 Seconds (23.7-30.8) H 06/07/17 08:30 Sodium 133 mmol/L (132-148) 06/11/17 07:30 Potassium 4.8 mmol/L (3.6-5.0) 06/11/17 07:30 Chloride 98 mmol/L (98-107) 06/11/17 07:30 Carbon Dioxide 30 mmol/L (21-33) 06/11/17 07:30 Anion Gap 10 (10-20) 06/11/17 07:30 BUN 18 mg/dL (7-21) 06/11/17 07:30 Creatinine 0.8 mg/dL (0.5-1.4) 06/11/17 07:30 Est GFR ( Amer) > 60 06/11/17 07:30 Est GFR (Non-Af Amer) > 60 06/11/17 07:30 Random Glucose 84 mg/dL (70-110) 06/11/17 07:30 Calcium 8.9 mg/dL (8.4-10.5) 06/11/17 07:30 Phosphorus 3.4 mg/dL (2.5-4.5) 06/10/17 06:30 Magnesium 2.2 mg/dL (1.7-2.2) 06/11/17 07:30 Total Bilirubin 1.0 mg/dL (0.2-1.3) 06/10/17 06:30 AST 36 U/L (15-39) 06/10/17 06:30 ALT 39 U/L (7-56) 06/10/17 06:30 Alkaline Phosphatase 73 U/L (38-133) 06/10/17 06:30 Lactate Dehydrogenase 628 U/L (333-699) 06/06/17 15:45 Total Creatine Kinase 112 U/L (35-230) 06/06/17 15:45 Troponin I 0.43 ng/mL H* D 06/07/17 08:30 NT-Pro-B Natriuret Pep 81402 pg/mL (0-450) H 06/06/17 15:45 Total Protein 6.3 g/dL (5.8-8.3) 06/10/17 06:30 Albumin 3.7 g/dL (3.0-4.8) 06/10/17 06:30 Globulin 2.6 gm/dL 06/10/17 06:30 Albumin/Globulin Ratio 1.4 (1.1-1.8) 06/10/17 06:30 Triglycerides 99 mg/dL (35-160) 06/07/17 08:30 Cholesterol 178 mg/dL (130-200) 06/07/17 08:30 LDL Cholesterol Direct 135 mg/dL (0-129) H 06/07/17 08:30 HDL Cholesterol 41 mg/dL (29-60) 06/07/17 08:30 TSH 3rd Generation 2.35 mIU/mL (0.46-4.68) 06/07/17 08:30 Urine Color Yellow (YELLOW) 06/07/17 06:00 Urine Appearance Sl cloudy (CLEAR) 06/07/17 06:00 Urine pH 6.0 (4.7-8.0) 06/07/17 06:00 Ur Specific [place] 1.020 (1.005-1.035) 06/07/17 06:00 Urine Protein Negative mg/dL (<30 mg/dL) 06/07/17 06:00 Urine Glucose (UA) Negative mg/dL (NEGATIVE) 06/07/17 06:00 Urine Ketones Negative mg/dL (NEGATIVE) 06/07/17 06:00 Urine Blood Negative (NEGATIVE) 06/07/17 06:00 Urine Nitrate Negative (NEGATIVE) 06/07/17 06:00 Urine Bilirubin Negative (NEGATIVE) 06/07/17 06:00 Urine Urobilinogen 0.2 E.U./dL (<1 E.U./dL) 06/07/17 06:00 Ur Leukocyte Esterase Large Jerardo/uL (NEGATIVE) H 06/07/17 06:00 Urine RBC 0 - 2 /hpf (0-2) 06/07/17 06:00 Urine WBC 10 - 15 /hpf (0-6) 06/07/17 06:00 Ur Epithelial Cells 6 - 8 /hpf (0-5) 06/07/17 06:00 Urine Bacteria Few (NEG) 06/07/17 06:00 - Hospital Course Hospital Course: 81 F with PMH HTN, HLD, restless leg syndrome, anxiety, lung cancer (s/p lobe resection) presents with a-fib with RVR after being sent from [facility] with a-fib with RVR. PT S&E at bedside a-fib @ HR 155 on monitor. Patient in no acute distress. Patient is with daughter and . ER doctor mentioned that patient was anxious. Patient states she has been feeling uncomfortable and lacking energy these past three days. Three days ago, patient fell at home, described as a mechanical fall (tripped on a rug at home). No LOC, no lapse in memory, no head trauma. Patient admits to ear pain and a sore throat that resolved last week. Chest pain resolved at the time of admission in the ED. Patient denies SOB, headaches, N/V/D/Abdominal pain and dizziness. Patient was admitted and started on Heparin. Cardiology was consulted and on the case. Was started on Amiodarone and Verapamil for A fib. Troponin elevated 0.47 -> 0.56 --> .043. Elevated trops and EKG suggestive of NTSEMI. Echo showed EF 35%, moderate TR. Patient was started on Lasix and Lisinopril. Patient was taken for cardiac cath which showed non obstructing CAD. Patient tolerated the procedure well. CT chest was ordered and showed no evidence of PE. Patient remained in A fib and was taken for REECE with DC cardioversion. Patient tolerated the procedure well. Patient was monitored overnight post procedure and remained in NSR. During her stay, labs and electrolytes were monitored. Patient had low potassium and low magnesium levels. These electrolytes were repleated as needed. On day of discharge patient was doing well, tolerating diet, denied any chest pain or palpitations. PT evaluated the patient and recommended TCU. Patient was approved for TCU admission. Patient is clear for discharge. All questions and concerns were addressed. Discharge Exam - Head Exam Head Exam: ATRAUMATIC, NORMAL INSPECTION - Eye Exam Eye Exam: EOMI, Normal appearance Pupil Exam: NORMAL ACCOMODATION - ENT Exam ENT Exam: Mucous Membranes Moist - Neck Exam Neck exam: Full Rom - Respiratory Exam Respiratory Exam: Clear to PA & Lateral, NORMAL BREATHING PATTERN. absent: Rales, Rhonchi, Wheezes - Cardiovascular Exam Cardiovascular Exam: REGULAR RHYTHM, +S1, +S2 - GI/Abdominal Exam GI & Abdominal Exam: Normal Bowel Sounds, Soft. absent: Firm, Rigid, Tenderness - Extremities Exam Extremities exam: tenderness, pedal pulses present Additional comments: +1 LE edema B/L - Back Exam Back exam: NORMAL INSPECTION - Neurological Exam Neurological exam: Alert, CN II-XII Intact, Oriented x3 - Psychiatric Exam Psychiatric exam: Normal Affect, Normal Mood - Skin Skin Exam: Normal Color, Warm Discharge Plan - Follow Up Plan Condition: FAIR Disposition: TRANSF TO SNF Instructions: Myocardial Infarction (DC), Coronary Artery Disease (DC), Atrial Fibrillation (GEN), Left Heart Catheterization (DC), Cardioversion (DC) Additional Instructions: Patient will be discharged to TCU. Continue current management <Jett Chau - Last Filed: 06/11/17 20:19> Provider - Provider Date of Admission: 06/06/17 16:25 Attending physician: Jett Chau MD Hospital Course - Lab Results Lab Results: Most Recent Lab Values WBC 6.6 10^3/ul (4.5-11.0) 06/11/17 07:30 RBC 4.41 10^6/uL (3.5-6.1) 06/11/17 07:30 Hgb 13.0 g/dL (12.0-16.0) 06/11/17 07:30 Hct 39.7 % (36.0-48.0) 06/11/17 07:30 MCV 90.0 fl (80.0-105.0) 06/11/17 07:30 MCH 29.5 pg (25.0-35.0) 06/11/17 07:30 MCHC 32.7 g/dl (31.0-37.0) 06/11/17 07:30 RDW 13.9 % (11.5-14.5) 06/11/17 07:30 Plt Count 124 10^3/uL (120.0-450.0) 06/11/17 07:30 MPV 11.1 fl (7.0-11.0) H 06/11/17 07:30 Gran % 63.9 % (50.0-68.0) 06/08/17 06:00 Lymph % (Auto) 18.4 % (22.0-35.0) L 06/08/17 06:00 [place] % (Auto) 15.7 % (1.0-6.0) H 06/08/17 06:00 Eos % (Auto) 1.3 % (1.5-5.0) L 06/08/17 06:00 Baso % (Auto) 0.7 % (0.0-3.0) 06/08/17 06:00 Gran # 5.53 (1.4-6.5) 06/08/17 06:00 Lymph # 1.6 (1.2-3.4) 06/08/17 06:00 [place] # 1.4 (0.1-0.6) H 06/08/17 06:00 Eos # 0.1 (0.0-0.7) 06/08/17 06:00 Baso # 0.06 K/mm3 (0.0-2.0) 06/08/17 06:00 PT 11.4 Seconds (9.9-11.8) 06/06/17 15:45 INR 1.06 (0.93-1.08) 06/06/17 15:45 APTT 69.3 Seconds (23.7-30.8) H 06/07/17 08:30 Sodium 133 mmol/L (132-148) 06/11/17 07:30 Potassium 4.8 mmol/L (3.6-5.0) 06/11/17 07:30 Chloride 98 mmol/L (98-107) 06/11/17 07:30 Carbon Dioxide 30 mmol/L (21-33) 06/11/17 07:30 Anion Gap 10 (10-20) 06/11/17 07:30 BUN 18 mg/dL (7-21) 06/11/17 07:30 Creatinine 0.8 mg/dL (0.5-1.4) 06/11/17 07:30 Est GFR ( Amer) > 60 06/11/17 07:30 Est GFR (Non-Af Amer) > 60 06/11/17 07:30 Random Glucose 84 mg/dL (70-110) 06/11/17 07:30 Calcium 8.9 mg/dL (8.4-10.5) 06/11/17 07:30 Phosphorus 3.4 mg/dL (2.5-4.5) 06/10/17 06:30 Magnesium 2.2 mg/dL (1.7-2.2) 06/11/17 07:30 Total Bilirubin 1.0 mg/dL (0.2-1.3) 06/10/17 06:30 AST 36 U/L (15-39) 06/10/17 06:30 ALT 39 U/L (7-56) 06/10/17 06:30 Alkaline Phosphatase 73 U/L (38-133) 06/10/17 06:30 Lactate Dehydrogenase 628 U/L (333-699) 06/06/17 15:45 Total Creatine Kinase 112 U/L (35-230) 06/06/17 15:45 Troponin I 0.43 ng/mL H* D 06/07/17 08:30 NT-Pro-B Natriuret Pep 24503 pg/mL (0-450) H 06/06/17 15:45 Total Protein 6.3 g/dL (5.8-8.3) 06/10/17 06:30 Albumin 3.7 g/dL (3.0-4.8) 06/10/17 06:30 Globulin 2.6 gm/dL 06/10/17 06:30 Albumin/Globulin Ratio 1.4 (1.1-1.8) 06/10/17 06:30 Triglycerides 99 mg/dL (35-160) 06/07/17 08:30 Cholesterol 178 mg/dL (130-200) 06/07/17 08:30 LDL Cholesterol Direct 135 mg/dL (0-129) H 06/07/17 08:30 HDL Cholesterol 41 mg/dL (29-60) 06/07/17 08:30 TSH 3rd Generation 2.35 mIU/mL (0.46-4.68) 06/07/17 08:30 Urine Color Yellow (YELLOW) 06/07/17 06:00 Urine Appearance Sl cloudy (CLEAR) 06/07/17 06:00 Urine pH 6.0 (4.7-8.0) 06/07/17 06:00 Ur Specific [place] 1.020 (1.005-1.035) 06/07/17 06:00 Urine Protein Negative mg/dL (<30 mg/dL) 06/07/17 06:00 Urine Glucose (UA) Negative mg/dL (NEGATIVE) 06/07/17 06:00 Urine Ketones Negative mg/dL (NEGATIVE) 06/07/17 06:00 Urine Blood Negative (NEGATIVE) 06/07/17 06:00 Urine Nitrate Negative (NEGATIVE) 06/07/17 06:00 Urine Bilirubin Negative (NEGATIVE) 06/07/17 06:00 Urine Urobilinogen 0.2 E.U./dL (<1 E.U./dL) 06/07/17 06:00 Ur Leukocyte Esterase Large Jerardo/uL (NEGATIVE) H 06/07/17 06:00 Urine RBC 0 - 2 /hpf (0-2) 06/07/17 06:00 Urine WBC 10 - 15 /hpf (0-6) 06/07/17 06:00 Ur Epithelial Cells 6 - 8 /hpf (0-5) 06/07/17 06:00 Urine Bacteria Few (NEG) 06/07/17 06:00 Attending/Attestation - Attestation I have personally seen and examined this patient.: Yes I have fully participated in the care of the patient.: Yes I have reviewed all pertinent clinical information, including history, physical exam and plan: Yes Notes (Text): I have seen and examined the patient at bedside with the resident. Agree with the note above with the following additions/ exceptions: Briefly this is 81 year old female with history of HTN, dyslipidemia, anxiety, lung cancer (s/p lobe resection 2012), post operative transient AF was admitted with AF with RVR , elevated troponin suggestive of NSEMI / Demand ischemia from tachycardia. Patient underwent Cardiac cath Saturday06/07/17 that reveal non obstructive CAD. Echo showed EF 35% and Moderate TR. She underwent successful cardioversion yesterday. She is on Apixiban for anticoagulation. CHF is improving. Leg swelling and dyspnea has significantly improved. Renal functions are stable. Continue lasix, amiodarone and lisinopril. PT recommended TCU. Patient will be transferred to TCU today. Discussed in detail with the patient and her daughter at the bedside. Dr Jett Chau
--- NOTE | 2017-06-11 12:44 | PN ---
DATE: 06/11/2017 REASON FOR THE CONSULTATION: Atrial fibrillation, rapid ventricular rate, positive troponin, status post catheterization, status post REECE cardioversion to normal sinus. SUBJECTIVE: The patient denies any history of chest pain, denies shortness of breath, feels better. Daughter is at the bedside. OBJECTIVE: Lying flat on the bed, not in apparent distress. PHYSICAL EXAMINATION VITAL SIGNS: Temperature afebrile, heart rate 69, and blood pressure 143/85. HEENT: PERRLA. Extraocular muscles intact. NECK: Supple. No carotid bruits or thyromegaly. CHEST Clear to auscultation. HEART: S1 and S2, regular. ABDOMEN: Soft. EXTREMITIES: Clubbing and cyanosis negative. LABORATORY DATA: Blood workup as follows: WBC 6.6, hemoglobin 13.5, hematocrit 39.7, and platelet count 11.1. Chemistry shows sodium 133, potassium 4.0, chloride 97, carbon dioxide 30, anion gap of 10, BUN 18, and creatinine 0.8. EKG this morning done that shows normal sinus at rate of 70. IMPRESSION: An 81-year-old female with the past medical history of hypertension, admitted with atrial fibrillation with new onset positive troponin, status post cardiac catheterization, nonsurgical coronary artery status post transesophageal echocardiography cardioversion converted to normal sinus, stable. RECOMMENDATIONS: Continue verapamil, decreased the dose to 180 mg once a day, discontinue aspirin because patient is on Eliquis. Continue amiodarone 200 mg daily. Continue Eliquis 2.5 b.i.d and followup in office possible discharge home today. If remained stable, followup with us in two weeks. Thank you Dr. Robles / Dr. Jett Chau for providing the opportunity in taking care of the patient [facility]. We will follow with you. Effie Bettencourt MD
[2017-06-11 17:26] VITALS: BP 114/63; PULSE 67; TEMP 97.7
[2017-06-11] MEDS ORDERED: SYSTANE ULTRA OU SCH (18:00)
== END 2017-06-11 18:59 | DRG 281 ==
LOC: ED 15:21 → ERH 16:25 → 2RNO 23:35 → 2RSO 06-07 17:08
PROVIDERS: ADMIT Internal Medicine; ATTEND Hospitalist
PROC: 4A023N7 Measurement of Cardiac Sampling and Pressure, Left Heart, Percutaneous Approach (ICD-10-PCS; principal; 2017-06-07)
PROC: B2151ZZ Fluoroscopy of Left Heart using Low Osmolar Contrast (ICD-10-PCS; 2017-06-07)
PROC: B2111ZZ Fluoroscopy of Multiple Coronary Arteries using Low Osmolar Contrast (ICD-10-PCS; 2017-06-07)
PROC: 5A2204Z Restoration of Cardiac Rhythm, Single (ICD-10-PCS; 2017-06-10)
PROC: B246ZZ4 Ultrasonography of Right and Left Heart, Transesophageal (ICD-10-PCS; 2017-06-10)
DX: I21.4 Non-ST elevation (NSTEMI) myocardial infarction (principal); I48.0 Paroxysmal atrial fibrillation; I25.110 Atherosclerotic heart disease of native coronary artery with unstable angina pectoris; I42.0 Dilated cardiomyopathy; I50.20 Unspecified systolic (congestive) heart failure; I11.0 Hypertensive heart disease with heart failure; I27.2 Other secondary pulmonary hypertension; E83.42 Hypomagnesemia; G25.81 Restless legs syndrome; E78.5 Hyperlipidemia, unspecified; F41.9 Anxiety disorder, unspecified; Z96.642 Presence of left artificial hip joint; E87.6 Hypokalemia; Z96.651 Presence of right artificial knee joint; Z85.118 Personal history of other malignant neoplasm of bronchus and lung; Z90.2 Acquired absence of lung [part of]; Z87.891 Personal history of nicotine dependence

== ENCOUNTER 2017-06-11 19:13 | Inpatient (IN) | payer OTHER ==
[2017-06-11 21:07] VITALS: BMI 30.2
[2017-06-11] MEDS ORDERED: Benzocaine/Menthol (Cepacol) Lozenge MT PRN (21:22)
[2017-06-12] MEDS: Pantoprazole 40 mg EC Tab PO SCH (06:06)
--- NOTE | 2017-06-12 06:31 | CP.PCM.HP ---
<Angelica Beltran - Last Filed: 06/13/17 16:26> History of Present Illness - History of Present Illness History of Present Illness: 81 F with PMH HTN, HLD, restless leg syndrome, anxiety, lung cancer (s/p lobe resection) was transferred to TCU from medical/surgical floor for deconditioning and continued physical therapy. Patient presented to [facility] with a- fib with RVR after being sent from [facility]. Patient was at home when she started to experience chest pain and palpitations. At PMD office, was found to be in A fib with RVR. Patient was hospitalized and monitored on telemetry. Elevated troponins suggestive of NSTEMI, Cardiac cath showed non-obstructing CAD with EF approx 35% and Moderate TR. Patient subsequently underwent REECE with DC cardioversion. Currently normal sinus rhythm and on eliquis for anticoagulation. Patient transferred yesterday to TCU for continued care. Patient is without complaints at this time. Reports feeling fatigued. Tolerating diet. Denies headaches, dizziness, cp, palpitations, sob, abdominal pain, urinary symptoms, changes in bowel habits. PMH: as above PSH: Right knee replacement, Left Hip replacement, unspecified left shoulder repair, R lung lobectomy (2013) SHx: former smoker for 1 ppd x 7 years quit 55 years ago. never illicit drugs. social EtOH Allergies: NKDA PMD: Dr. Huang Present on Admission - Present on Admission Any Indicators Present on Admission: No History of DVT/PE: No History of Uncontrolled Diabetes: No Urinary Catheter: No Decubitus Ulcer Present: No Review of Systems - Review of Systems All systems: reviewed and no additional remarkable complaints except - Constitutional Constitutional: Weakness. absent: Chills, Fever, Headache - EENT Eyes: Itchy Eyes. absent: Blurred Vision, Change in Vision Ears: absent: Dizziness - Cardiovascular Cardiovascular: absent: Chest Pain, Diaphoresis, Dyspnea, Lightheadedness, Palpitations, Syncope - Respiratory Respiratory: absent: Cough, Dyspnea, Dyspnea on Exertion, Wheezing - Gastrointestinal Gastrointestinal: absent: Abdominal Pain, Constipation, Diarrhea, Nausea, Vomiting - Genitourinary Genitourinary: absent: Dysuria, Hematuria, Urinary Frequency - Musculoskeletal Musculoskeletal: Arthralgias. absent: Joint Swelling, Numbness, Tingling - Integumentary Integumentary: absent: Lesions, Rash - Neurological Neurological: Weakness. absent: Dizziness, Numbness, Headaches, Tingling - Psychiatric Psychiatric: absent: Anxiety, Depression, Irritability Past Patient History - Infectious Disease Hx of Infectious Diseases: None - Tetanus Immunizations Tetanus Immunization: Unknown - Past Medical History & Family History Past Medical History?: Yes - Past Social History Smoking Status: Never Smoked - CARDIAC Hx Cardiac Disorders: Yes (AAA) Hx Hypertension: Yes - PULMONARY Hx Respiratory Disorders: Yes (H/O OF SMOKING [email or web address]) Other/Comment: LUNG CA-RECEIVES INFUSIONS -LAST WAS FEBRUARY 2017,RIGHT UPPER LOBE OF LUNG REMOVED - NEUROLOGICAL Hx Paralysis: No - HEENT Hx HEENT Problems: Yes (L EYE OCCLUSION-BRANCH VEIN.) - RENAL Hx Chronic Kidney Disease: No - ENDOCRINE/METABOLIC Hx Endocrine Disorders: Yes (THYROID NODULES) - HEMATOLOGICAL/ONCOLOGICAL Hx Blood Transfusions: No Hx Blood Transfusion Reaction: No - INTEGUMENTARY Hx Dermatological Problems: Yes (SACRAL REDNESS-STAGE 1,BILATERAL LE EDEMA +2 8- 10-17) - MUSCULOSKELETAL/RHEUMATOLOGICAL Hx Falls: No - GASTROINTESTINAL Hx Gastrointestinal Disorders: Yes (INCONTINENT) - GENITOURINARY/GYNECOLOGICAL Hx Genitourinary Disorders: No Hx Reproductive Disorders: No - PSYCHIATRIC Hx Emotional Abuse: No Hx Physical Abuse: No Hx Substance Use: No - SURGICAL HISTORY Hx Surgeries: Yes (RIGHT UPPER LOBE OF LUNG REMOVED.) - ANESTHESIA Hx Anesthesia Reactions: No Hx Malignant Hyperthermia: No Meds Allergies/Adverse Reactions: Allergies Allergy/AdvReac Type Severity Reaction Status Date / Time No Known Allergies Allergy Verified 06/11/17 21:07 Physical Exam - Constitutional Appears: Well, No Acute Distress - Head Exam Head Exam: ATRAUMATIC, NORMAL INSPECTION - Eye Exam Eye Exam: EOMI, Normal appearance Pupil Exam: NORMAL ACCOMODATION - ENT Exam ENT Exam: Mucous Membranes Moist - Neck Exam Neck exam: Positive for: Normal Inspection - Respiratory Exam Respiratory Exam: Clear to Auscultation Bilateral, NORMAL BREATHING PATTERN. absent: Rales, Rhonchi, Wheezes - Cardiovascular Exam Cardiovascular Exam: REGULAR RHYTHM, +S1, +S2. absent: Systolic Murmur - GI/Abdominal Exam GI & Abdominal Exam: Normal Bowel Sounds, Soft. absent: Guarding, Rebound, Rigid, Tenderness - Extremities Exam Extremities exam: Positive for: pedal pulses present. Negative for: calf tenderness, tenderness Additional comments: +1 LE edema B/L - Back Exam Back exam: NORMAL INSPECTION - Neurological Exam Neurological exam: Alert, CN II-XII Intact, Oriented x3 - Psychiatric Exam Psychiatric exam: Normal Affect, Normal Mood - Skin Skin Exam: Normal Color, Warm Results - Vital Signs Recent Vital Signs: Last Vital Signs Temp 97.4 F L 06/12/17 00:38 Pulse 76 06/12/17 00:38 Resp 18 06/12/17 00:38 BP 120/66 06/12/17 00:38 Pulse Ox Assessment & Plan - Assessment and Plan (Free Text) Assessment: 81 F with PMH HTN, HLD, restless leg syndrome, anxiety, lung cancer (s/p lobe resection 2012), post operative transient AF was admitted with AF with RVR , elevated troponin suggestive of NSTEMI /Demand ischemia from tachycardia. Plan: 1) Atrial fibrillation with RVR - S/P REECE with DC cardioversion, - Patient in NSR, stable, afebrile - Discharged to TCU yesterday - Continue Amiodarone 200 mg BID - Continue Verapamil 40 mg TID - Continue Eliquis 2.5 mg BID - CT chest: negative for PE - Cardiology on consult, f/u recommendations - Continue Physical therapy as tolerated 2) NSTEMI, Elevated troponins - S/P cardiac catherization, nonobstructing CAD - Coronary showed no significant stenosis - EF estimated to be 25-30% during Coronary Catherization - Continue Lipitor 40mg daily - Continue ASA 3) Congestive Heart Failure, Systolic - Echo suggestive systolic heart failure with EF 35% - Lasix 40 mg PO BID - Spirinolactone 25 mg PO Daily - Continue Lisinopril - B/L LE edema, improving 4) Hypokalemia - F/U am labs q 2 days 5) Hypomagnesemia -F/U am labs q 2 days 6) Anxiety - Continue Klonopin as needed 7) Hx of Lung CA, s/p resection - Continue spiriva 8) GI/DVT ppx - Protonix - Eliquis 2.5 mg BID <Jett Chau B - Last Filed: 06/16/17 15:29> Results - Vital Signs Recent Vital Signs: Last Vital Signs Temp 98.3 F 06/16/17 10:51 Pulse 88 06/16/17 10:51 Resp 06/16/17 10:51 BP 90/59 L 06/16/17 14:48 Pulse Ox 97 06/16/17 10:51 - Labs Result Diagrams: 06/15/17 16:35 06/16/17 08:30 Labs: Laboratory Results - last 24 hr 06/15/17 06/15/17 06/16/17 16:35 16:35 08:30 WBC 6.3 RBC 4.59 Hgb 13.7 Hct 40.6 MCV 88.5 MCH 29.8 MCHC 33.7 RDW 13.5 Plt Count 163 MPV 11.1 H Gran % 64.7 Lymph % (Auto) 15.3 L [place] % (Auto) 16.7 H Eos % (Auto) 2.2 Baso % (Auto) 1.1 Gran # 4.09 Lymph # 1.0 L [place] # 1.1 H Eos # 0.1 Baso # 0.07 Sodium 127 L 127 L Potassium 4.7 3.8 Chloride 89 L 92 L Carbon Dioxide 29 25 Anion Gap 14 14 BUN 22 H 18 Creatinine 0.9 0.7 Est GFR ( Amer) > 60 > 60 Est GFR (Non-Af Amer) > 60 > 60 Random Glucose 137 H 129 H Calcium 9.2 9.1 Total Bilirubin 0.8 1.2 AST 40 H 32 ALT 40 37 Alkaline Phosphatase 69 64 Total Protein 6.2 6.3 Albumin 3.7 3.7 Globulin 2.5 2.6 Albumin/Globulin Ratio 1.5 1.4 Attending/Attestation - Attestation I have personally seen and examined this patient.: Yes I have fully participated in the care of the patient.: Yes I have reviewed all pertinent clinical information: Yes Notes (Text): I have seen and examined the patient at bedside with the resident. Agree with the note above with the following additions/ exceptions: Briefly this is 81 year old female with history of HTN, dyslipidemia, anxiety, lung cancer (s/p lobe resection 2012), post operative transient AF was admitted with AF with RVR , elevated troponin suggestive of NSEMI / Demand ischemia from tachycardia. Patient underwent Cardiac cath Saturday06/07/17 that reveal non obstructive CAD. Echo showed EF 35% and Moderate TR. She underwent successful cardioversion. She is on Apixiban for anticoagulation. CHF is improving. Leg swelling and dyspnea has significantly improved. Renal functions are stable. Continue lasix, amiodarone and lisinopril. She will start participating in physical therapy today. Complains of being fatigued. Denies any other complaints. Upon discharge patient will follow up with Dr Muñoz. Dr Jett Chau
[2017-06-12] MEDS: Magnesium Oxide 400 mg Tab UD PO SCH ×3 (09:59→18:22)
[2017-06-12] MEDS: Aritificial Tears (15ml) OU SCH ×2 (09:59→18:18)
[2017-06-12] MEDS ORDERED: Verapamil 120 mg ER Tab PO SCH (10:00)
[2017-06-12] MEDS: LEFLUNOMIDE 20 MG PO SCH (10:08)
[2017-06-12] MEDS: cycloSPORINE 0.05 % Opth Emulsion UD OU SCH ×2 (10:20→21:36)
[2017-06-12] MEDS: TIMOLOL OS SCH ×2 (10:22→18:24)
[2017-06-12] MEDS: DORZOLAMIDE OS SCH ×2 (10:22→18:24)
[2017-06-12] MEDS: PROPYLENE GLYCOL 0.6% OU SCH ×2 (10:23→18:19)
[2017-06-12] MEDS: Tiotropium 18 mcg Cap For Inhalation IH SCH (10:23)
[2017-06-12] MEDS ORDERED: Verapamil 120 mg ER Tab PO STA (12:32)
--- NOTE | 2017-06-12 18:29 | CARD ---
APPROVED REPORT EKG Measurement Heart [id number] <Conclusion> Atrial fibrillation with rapid ventricular response Right axis deviation Nonspecific T wave abnormality, probably digitalis effect Abnormal ECG
--- NOTE | 2017-06-12 19:12 | CON ---
DATE: 06/12/2017 LOCATION: Room 314, bed 1. REASON FOR CONSULTATION: Atrial fibrillation, hypertension. HISTORY OF PRESENT ILLNESS: The patient is an 81-year-old female, transferred from medical floor to transitional care unit for deconditioning of physical therapy. The patient was admitted to medical floor with the history that she is known case of hypertension, hyperlipidemia, anxiety disorder, restless legs syndrome, history of lung CA, status post lobe resection 4 years ago in [place], and after surgery of the lungs she had a atrial fibrillation, but was converted to sinus rhythm. Since then she has been stable from cardiac point of view, no palpitation, no arrhythmia. The patient at home had some chest pain and palpitation and she was found to be in atrial fibrillation and rapid rate and troponin was found to be 0.47, slightly elevated. The patient with rapid atrial fibrillation and has also slight chest discomfort. The patient had REECE cardioversion, also had cardiac catheterization, which showed nonobstructive coronary artery disease. So, the patient converted to sinus with REECE cardioversion and now transferred to transitional care unit for deconditioning of physical therapy. The patient is sitting in bed comfortably without any chest pain, shortness of breath or palpitation. PAST MEDICAL HISTORY: Significant for lung CA, status post resection, 4 years ago in [place]; anxiety disorder; restless leg syndrome; hypertension; hyperlipidemia. She was followed by Dr. Loza. The patient also has surgery for right knee replacement and left hip replacement. PERSONAL HISTORY: Ex-smoker pack-a-day for 55 pack-year. Quit 7 years ago. Denies drinking. ALLERGIES: THE PATIENT HAS NO KNOWN ALLERGIES. REVIEW OF SYSTEMS: All other systems reviewed. Positive as mentioned in the history. CARDIAC WORKUP HISTORY: The patient on 06/10/2017 had echocardiogram, which showed left ventricular ejection fraction 40%, the patient was in atrial fibrillation. The patient used 200 joules synchronized cardioversion. The patient converted to sinus rhythm. The patient had mild mitral regurgitation. Left ventricular size was normal and thickness was normal. The patient had cardiac catheterization on 06/07/2017, which showed nonobstructive coronary artery disease limited to diagonal to arterial 55% stenosis, which is a small caliber vessel not suitable for any intervention. Major arteries were essentially normal. Decreased LV ejection fraction 35% to 40%. The patient was in atrial fibrillation, EDP was 18. PHYSICAL EXAMINATION: VITAL SIGNS: Blood pressure is 133/74, respiration 18, when I examined patient's apical pulse was around 128 per minute, irregular, temperature 98.3. HEENT: Head is normocephalic. Eyes: Pupils are normal. Conjunctivae normal. Nose and throat normal. NECK: JVP low. Carotids equal. Thorax AP diameter normal. LUNGS: Clear. CARDIOVASCULAR: S1 and S2. ABDOMEN: Soft and nontender. No organomegaly. Bowel sounds normal. EXTREMITIES: No clubbing, no cyanosis. LABORATORY DATA: WBC 6.6, hemoglobin 13.0, hematocrit 39.7 and platelet 124. Sodium 133, potassium 4.8, BUN 10, creatinine 0.8, random sugar 124, and magnesium 2.2. Total protein and albumin normal. DIAGNOSES: New-onset atrial fibrillation with rapid ventricular rate with REECE cardioversion went to sinus rhythm, but now clinically looks like he went back into atrial fibrillation. On examination, hypertension, hyperlipidemia, status post lobectomy for lung cancer 4 years ago. Nonobstructive coronary artery disease, on cardiac catheterization, LV dysfunction with decreased LV ejection fraction 35% to 40%. PLAN: The patient received verapamil 120 mg 10 a.m. this morning, we will give stat another dose of 120 mg p.o. and we will increase the verapamil starting tomorrow 240 once a day. The patient already on Eliquis 2.5 mg b.i.d., amiodarone 200 mg p.o daily, furosemide 40 mg p.o. daily, Lipitor 40 mg p.o. daily, Neurontin 300 mg p.o. daily, Protonix 40 mg daily, lisinopril 5 mg daily. We will do also repeat EKG now, and in the meantime, we will continue physical therapy. We will follow with you. Effie Middleton MD
[2017-06-13] MEDS: Pantoprazole 40 mg EC Tab PO SCH (05:22)
[2017-06-13] MEDS: PROPYLENE GLYCOL 0.6% OU SCH ×2 (11:00→19:00)
[2017-06-13] MEDS: cycloSPORINE 0.05 % Opth Emulsion UD OU SCH ×2 (11:00→22:29)
[2017-06-13] MEDS: DORZOLAMIDE OS SCH ×2 (11:00→19:00)
[2017-06-13] MEDS: Aritificial Tears (15ml) OU SCH ×2 (11:00→19:06)
[2017-06-13] MEDS: LEFLUNOMIDE 20 MG PO SCH (11:00)
[2017-06-13] MEDS: Magnesium Oxide 400 mg Tab UD PO SCH ×3 (11:00→17:30)
[2017-06-13] MEDS: TIMOLOL OS SCH ×2 (11:00→19:00)
[2017-06-13] MEDS: Verapamil 240 mg ER Tab PO SCH (11:00)
[2017-06-13] MEDS: Tiotropium 18 mcg Cap For Inhalation IH SCH (11:00)
--- NOTE | 2017-06-13 14:50 | PN ---
DATE: 06/13/2017 LOCATION: Room 314, bed 1. REASON FOR CONSULTATION: Atrial fibrillation. SUBJECTIVE: The patient denies any chest pain, shortness of breath or palpitation. The patient just did physical therapy without any cardiac symptoms. PHYSICAL EXAMINATION: VITAL SIGNS: Blood pressure 137/86, respirations 18, pulse 96, temperature 97.8. HEENT: Head is normocephalic. Eyes: Pupils, normal. Conjunctivae normal. Nose and throat normal. NECK: JVP low. Carotids equal. Thorax AP diameter normal. LUNGS: Clear. CARDIOVASCULAR: Apical rate is irregular, atrial fibrillation. ABDOMEN: Soft and nontender. No organomegaly. Bowel sounds normal. EXTREMITIES: No clubbing, no cyanosis. LABORATORY DATA: Labs were done on medical floor and they were reported on previous consult as well as in notes. DIAGNOSES: New-onset atrial fibrillation converted to sinus rhythm with REECE cardioversion, but now again the patient went back into atrial fibrillation with yesterday was upper rate and now the rate is controlled, hypertension, hyperlipidemia, status post lobectomy for lung cancer 4 years ago, nonobstructive coronary artery disease, on cardiac catheterization, LV dysfunction with decreased LV ejection fraction 35% to 40%. PLAN: Yesterday, I increased I the verapamil SR from 120 mg to 240 mg. The patient's heart rate has come down now and the patient already also receiving Eliquis 2.5 b.i.d., amiodarone 200 mg daily, furosemide 40 p.o. daily, Lipitor 40 p.o. daily, Neurontin 300 mg p.o. daily, Protonix 40 daily, lisinopril 5 mg daily. The patient can continue with physical therapy and heart rate has improved with increased dose of verapamil. We will follow closely. Effie Middleton MD
[2017-06-14] MEDS: Pantoprazole 40 mg EC Tab PO SCH (05:20)
[2017-06-14 06:35] LABS: HEMATOCRIT 41.2 % (36.0-48.0); MEAN CORPUSCULAR HEMOGLOBIN 29.8 pg (25.0-35.0); MEAN CORPUSCULAR HGB CONC 33.5 g/dl (31.0-37.0); MEAN PLATELET VOLUME 11.2 fl (7.0-11.0); RED CELL DISTRIBUTION WIDTH 13.7 % (11.5-14.5); WHITE BLOOD COUNT 6.1 10^3/ul (4.5-11.0)
--- NOTE | 2017-06-14 06:46 | CP.PCM.PN ---
<Angelica Beltran - Last Filed: 06/14/17 13:08> Subjective - Date & Time of Evaluation Date of Evaluation: 06/14/17 Time of Evaluation: 07:00 - Subjective Subjective: Angelica Beltran DO, PGY-1, Internal Medicine, Hospital Service Patient seen and examined at bedside. Per nursing, no acute events overnight. Patient is doing well, participating with physical therapy and tolerating diet. OOB and in chair currently. Denies headache, dizziness, cp, sob, palpitations, abdominal pain, urinary symptoms, changes in bowel habits. Objective - Vital Signs/Intake and Output Vital Signs (last 24 hours): Temp Pulse Resp BP Pulse Ox 98.0 F 68 14 102/81 97 06/13/17 16:14 06/13/17 16:14 06/13/17 16:14 06/13/17 16:14 06/13/17 16:14 - Medications Medications: Current Medications Amiodarone HCl (Cordarone) 200 mg PO DAILY YA PRN Reason: Protocol Last Admin: 06/13/17 11:00 Dose: 200 mg Apixaban (Eliquis) 2.5 mg PO BID YA PRN Reason: Protocol Last Admin: 06/13/17 17:29 Dose: 2.5 mg Artificial Tears (Artificial Tears) 0 ml OU BID YA PRN Reason: Protocol Last Admin: 06/13/17 19:06 Dose: Not Given Atorvastatin Calcium (Lipitor) 40 mg PO DIN YA PRN Reason: Protocol Last Admin: 06/13/17 17:29 Dose: 40 mg Benzocaine/Menthol (Cepacol Sore Throat) 1 josé manuel MT Q2H PRN; Protocol PRN Reason: Sore Throat Clonazepam (Klonopin) 0.5 mg PO 1000,2200 YA PRN Reason: Protocol Last Admin: 06/13/17 22:29 Dose: 0.5 mg Cyclosporine (Restasis) 1 ea OU Q12 YA Last Admin: 06/13/17 22:29 Dose: 1 ea Folic Acid (Folic Acid) 1 mg PO DAILY YA PRN Reason: Protocol Last Admin: 06/13/17 11:00 Dose: 1 mg Furosemide (Lasix) 40 mg PO DAILY YA PRN Reason: Protocol Last Admin: 06/13/17 11:00 Dose: 40 mg Gabapentin (Neurontin) 300 mg PO DAILY YA PRN Reason: Protocol Last Admin: 06/13/17 11:00 Dose: 300 mg Home Med (Home Med) 0 unit OU BID [facility] Last Admin: 06/13/17 19:00 Dose: 1 unit Home Med (Home Med) 0 unit OS BID [facility] Last Admin: 06/13/17 19:00 Dose: 1 unit Lisinopril (Zestril) 5 mg PO DAILY YA PRN Reason: Protocol Last Admin: 06/13/17 11:00 Dose: 5 mg Magnesium Oxide (Mag-Ox) 400 mg PO TID YA PRN Reason: Protocol Last Admin: 06/13/17 17:30 Dose: 400 mg Leflunomide [Arava] (20 Mg (Home Med)) 20 mg PO DAILY [facility] Last Admin: 06/13/17 11:00 Dose: 20 mg Pantoprazole Sodium (Protonix Ec Tab) 40 mg PO 0600 [facility] PRN Reason: Protocol Last Admin: 06/14/17 05:20 Dose: 40 mg Tiotropium Britt (Spiriva) 18 mcg IH DAILY YA PRN Reason: Protocol Last Admin: 06/13/17 11:00 Dose: 18 mcg Verapamil HCl (Calan Sr Tab) 240 mg PO DAILY [facility] Last Admin: 06/13/17 11:00 Dose: 240 mg - Labs Labs: 06/14/17 05:30 - Constitutional Appears: Well, No Acute Distress - Head Exam Head Exam: ATRAUMATIC, NORMAL INSPECTION - Eye Exam Eye Exam: EOMI, Normal appearance Pupil Exam: NORMAL ACCOMODATION - ENT Exam ENT Exam: Mucous Membranes Moist - Neck Exam Neck Exam: Full ROM - Respiratory Exam Respiratory Exam: Clear to Ausculation Bilateral, NORMAL BREATHING PATTERN. absent: Rales, Rhonchi, Wheezes - Cardiovascular Exam Cardiovascular Exam: Irregular Rhythm, +S1, +S2 - GI/Abdominal Exam GI & Abdominal Exam: Soft, Normal Bowel Sounds. absent: Guarding, Rigid, Tenderness - Extremities Exam Extremities Exam: absent: Calf Tenderness Additional comments: +1 LE edema, bilaterally - Back Exam Back Exam: NORMAL INSPECTION - Neurological Exam Neurological Exam: Alert, Awake, Oriented x3 - Psychiatric Exam Psychiatric exam: Normal Affect, Normal Mood - Skin Skin Exam: Normal Color, Warm Assessment and Plan - Assessment and Plan (Free Text) Assessment: 81 F with PMH HTN, HLD, restless leg syndrome, anxiety, lung cancer (s/p lobe resection 2012), post operative transient AF was admitted with AF with RVR , elevated troponin suggestive of NSTEMI /Demand ischemia from tachycardia, patient currently in TCU for deconditioning and continued physical therapy Plan: 1) Atrial fibrillation with RVR - S/P REECE with DC cardioversion - Stable, afebrile - Patient back in afib, rate controlled - Verapamil increased to 240mg daily - Continue Amiodarone 200 mg BID - Continue Eliquis 2.5 mg BID - Cardiology on consult, f/u recommendations - Continue Physical therapy as tolerated 2) NSTEMI, Elevated troponins - S/P cardiac catherization, nonobstructing CAD - Coronary showed no significant stenosis - EF estimated to be 25-30% during Coronary Catherization - Continue Lipitor 40mg daily - Continue ASA 3) Congestive Heart Failure, Systolic - Echo suggestive systolic heart failure with EF 35% - Lasix 40 mg PO BID - Spirinolactone 25 mg PO Daily - Continue Lisinopril - B/L LE edema, improving 4) Hx of Rheumatoid Arthritis - Continue home medications 5) Hypokalemia - Continue to monitor 6) Hypomagnesemia - Continue to monitor 7) Anxiety - Continue Klonopin as needed 8) Hx of Lung CA, s/p resection - Continue spiriva 9) GI/DVT ppx - Protonix - Eliquis 2.5 mg BID <Jett Chau - Last Filed: 06/17/17 16:54> Objective - Vital Signs/Intake and Output Vital Signs (last 24 hours): Temp Pulse Resp BP Pulse Ox 98.3 F 88 18 90/59 L 97 06/16/17 10:51 06/16/17 10:51 06/16/17 10:51 06/16/17 14:48 06/16/17 10:51 Intake and Output: 06/16/17 06/16/17 06:59 18:59 Intake Total 360 Balance 360 - Medications Medications: Current Medications Amiodarone HCl (Cordarone) 200 mg PO DAILY YA PRN Reason: Protocol Last Admin: 06/16/17 10:16 Dose: 200 mg Apixaban (Eliquis) 2.5 mg PO BID YA PRN Reason: Protocol Last Admin: 06/16/17 10:16 Dose: 2.5 mg Artificial Tears (Artificial Tears) 0 ml OU BID YA PRN Reason: Protocol Last Admin: 06/16/17 10:15 Dose: 1 drop Ascorbic Acid (Vitamin C 500 Mg Tab) 500 mg PO DAILY [facility] Last Admin: 06/16/17 10:21 Dose: 500 mg Atenolol (Tenormin) 25 mg PO DAILY [facility] Last Admin: 06/16/17 10:20 Dose: Not Given Atorvastatin Calcium (Lipitor) 40 mg PO DIN YA PRN Reason: Protocol Last Admin: 06/15/17 17:22 Dose: 40 mg Benzocaine/Menthol (Cepacol Sore Throat) 1 josé manuel MT Q2H PRN; Protocol PRN Reason: Sore Throat Clonazepam (Klonopin) 0.5 mg PO 1000,2200 YA PRN Reason: Protocol Last Admin: 06/16/17 10:14 Dose: 0.5 mg Cyclosporine (Restasis) 1 ea OU Q12 YA Last Admin: 06/16/17 10:20 Dose: 1 ea Folic Acid (Folic Acid) 1 mg PO DAILY YA PRN Reason: Protocol Last Admin: 06/16/17 10:16 Dose: 1 mg Furosemide (Lasix) 40 mg PO DAILY YA PRN Reason: Protocol Last Admin: 06/16/17 10:17 Dose: 40 mg Gabapentin (Neurontin) 300 mg PO DAILY YA PRN Reason: Protocol Last Admin: 06/16/17 10:12 Dose: 300 mg Home Med (Home Med) 0 unit OU BID [facility] Last Admin: 06/16/17 10:17 Dose: 1 unit Home Med (Home Med) 0 unit OS BID [facility] Last Admin: 06/16/17 10:17 Dose: 1 unit Lisinopril (Zestril) 5 mg PO DAILY YA PRN Reason: Protocol Last Admin: 06/16/17 10:21 Dose: 5 mg Magnesium Oxide (Mag-Ox) 400 mg PO TID YA PRN Reason: Protocol Last Admin: 06/16/17 14:48 Dose: 400 mg Multivitamins (Thera Tab) 1 tab PO 0800 [facility] Last Admin: 06/16/17 08:26 Dose: 1 tab Leflunomide [Arava] (20 Mg (Home Med)) 20 mg PO DAILY [facility] Last Admin: 06/16/17 10:18 Dose: 20 mg Pantoprazole Sodium (Protonix Ec Tab) 40 mg PO 0600 YA PRN Reason: Protocol Last Admin: 06/16/17 05:40 Dose: 40 mg Tiotropium Britt (Spiriva) 18 mcg IH DAILY [facility] PRN Reason: Protocol Last Admin: 06/16/17 10:20 Dose: 18 mcg Verapamil HCl (Calan Sr Tab) 240 mg PO DAILY [facility] Last Admin: 06/16/17 10:15 Dose: 240 mg Zinc Sulfate (Zinc Sulfate 220 Mg Cap) 220 mg PO DAILY [facility] Last Admin: 06/16/17 10:21 Dose: 220 mg - Labs Labs: 06/15/17 16:35 06/16/17 08:30 Attending/Attestation - Attestation I have personally seen and examined this patient.: Yes I have fully participated in the care of the patient.: Yes I have reviewed all pertinent clinical information, including history, physical exam and plan: Yes Notes (Text): I have seen and examined the patient at bedside with the resident. Agree with the note above with the following additions/ exceptions: Briefly this is 81 year old female with history of HTN, dyslipidemia, anxiety, lung cancer (s/p lobe resection 2012), post operative transient AF was admitted with AF with RVR , elevated troponin suggestive of NSEMI / Demand ischemia from tachycardia. Patient underwent Cardiac cath Saturday06/07/17 that reveal non obstructive CAD. Echo showed EF 35% and Moderate TR. She underwent cardioversion however she converted back to afib today. Verapamil was increased. She is on Apixiban for anticoagulation. CHF is improving. Leg swelling and dyspnea has significantly improved. Renal functions are stable. Continue lasix, amiodarone and lisinopril. Upon discharge patient will follow up with Dr Muñoz. Dr Jett Chau
[2017-06-14 06:56] LABS: ALB/GLOB RATIO 1.4 (1.1-1.8); ALKALINE PHOSPHATASE 69 U/L (38-133); ALT/SGPT 37 U/L (7-56); AST/SGOT 28 U/L (15-39); BILIRUBIN,TOTAL 0.9 mg/dL (0.2-1.3); BLOOD UREA NITROGEN 21 mg/dL (7-21); CALCIUM 9.1 mg/dL (8.4-10.5); CARBON DIOXIDE 26 mmol/L (21-33); CHLORIDE 94 mmol/L (95-110); GFR AFRICAN-AMERICAN > 60; GLUCOSE,RANDOM 84 mg/dL (70-110); PHOSPHOROUS 3.2 mg/dL (2.5-4.5); POTASSIUM 3.8 mmol/L (3.6-5.0); SODIUM 130 mmol/L (132-148); TOTAL PROTEIN 5.9 g/dL (5.8-8.3)
[2017-06-14] MEDS: Aritificial Tears (15ml) OU SCH ×2 (11:36→18:16)
[2017-06-14] MEDS: PROPYLENE GLYCOL 0.6% OU SCH ×2 (11:39→18:13)
[2017-06-14] MEDS: DORZOLAMIDE OS SCH ×2 (11:40→18:19)
[2017-06-14] MEDS: TIMOLOL OS SCH ×2 (11:40→18:19)
[2017-06-14] MEDS: Magnesium Oxide 400 mg Tab UD PO SCH ×3 (11:42→18:19)
[2017-06-14] MEDS: LEFLUNOMIDE 20 MG PO SCH (11:42)
[2017-06-14] MEDS: cycloSPORINE 0.05 % Opth Emulsion UD OU SCH ×2 (11:43→22:06)
[2017-06-14] MEDS: Tiotropium 18 mcg Cap For Inhalation IH SCH (11:44)
[2017-06-14] MEDS: Verapamil 240 mg ER Tab PO SCH (12:00)
--- NOTE | 2017-06-15 00:05 | PN ---
DATE OF PROGRESS NOTE: 06/14/2017. LOCATION: The patient in room 314, bed #1. REASON FOR CONSULTATION: Atrial fibrillation. SUBJECTIVE: The patient sitting in chair without any chest pain, shortness of breath, or palpitation. She did physical therapy without any symptoms. PHYSICAL EXAMINATION: VITAL SIGNS: Blood pressure 128/73. The pulse rate mentioned by nurses is 65, but actually I took the apical rate while she was sitting in chair. She already did exercise one and half hour ago, her heart rate is 104. Yesterday, when I took apical, it again was around in the range of 100 plus also, so the patient is totally asymptomatic. Respirations 20, pulse 97.8. HEENT: Head is normocephalic. Eyes: Pupils, normal. Conjunctivae normal. Nose and throat normal. NECK: JVP low. Carotids equal. Thorax AP diameter normal. LUNGS: Clear. CARDIOVASCULAR: S1, S2. ABDOMEN: Soft, nontender. No organomegaly. Bowel sounds normal. EXTREMITIES: No clubbing, no cyanosis. LABORATORY DATA: Sodium 130, potassium 3.8, BUN 21, creatinine 0.7. Magnesium phosphorus, calcium, total protein, albumin normal. WBC 6.1, hemoglobin 13.8, hematocrit 41.2, platelet 143,000. DIAGNOSES: New onset atrial fibrillation, converted to sinus rhythm with transesophageal echocardiography cardioversion, but back into atrial fibrillation with rapid rate, now being controlled with medication, hypertension, hyperlipidemia, status post lobectomy for lung cancer four years ago, nonobstructive coronary artery disease. On cardiac cath, LV ejection fraction 35% to 40%. PLAN: Since the patient's apical rate yesterday and today both days in the range of 104, we will add atenolol 12.5 mg p.o. daily to therapy. The patient already on verapamil 240 mg once a day, amiodarone 200 mg daily, Eliquis 2.5 mg b.i.d., furosemide 40 mg daily, Lipitor 40 mg daily, Neurontin 300 mg p.o. daily, Protonix 40 mg daily, lisinopril 5 mg daily, and we will continue physical therapy and we will follow with you. Effie Middleton MD
[2017-06-15] MEDS: Pantoprazole 40 mg EC Tab PO SCH (06:15)
[2017-06-15] MEDS: Verapamil 240 mg ER Tab PO SCH (11:48)
[2017-06-15] MEDS: Aritificial Tears (15ml) OU SCH ×2 (11:48→17:22)
[2017-06-15] MEDS: DORZOLAMIDE OS SCH ×2 (11:50→17:24)
[2017-06-15] MEDS: PROPYLENE GLYCOL 0.6% OU SCH ×2 (11:50→17:24)
[2017-06-15] MEDS: TIMOLOL OS SCH ×2 (11:50→17:24)
[2017-06-15] MEDS: Tiotropium 18 mcg Cap For Inhalation IH SCH (11:54)
[2017-06-15] MEDS: cycloSPORINE 0.05 % Opth Emulsion UD OU SCH ×2 (11:54→21:47)
[2017-06-15] MEDS: Magnesium Oxide 400 mg Tab UD PO SCH ×3 (11:54→17:26)
[2017-06-15] MEDS: LEFLUNOMIDE 20 MG PO SCH (11:54)
--- NOTE | 2017-06-15 15:34 | PN ---
DATE: 06/15/2017 REASON FOR THE CONSULTATION: Followup atrial fibrillation, status post REECE cardioversion, failed. SUBJECTIVE: The patient sitting in the chair, feels much better, getting rehab. OBJECTIVE: GENERAL: Sitting on the chair, not in apparent distress. VITAL SIGNS: Heart rate 88 and blood pressure 109/73. HEENT: PERRLA. Extraocular muscles intact. NECK: Supple. No carotid bruits or thyromegaly. CHEST Clear to auscultation. HEART: S1 and S2, regular. ABDOMEN: Soft. EXTREMITIES: Clubbing and cyanosis negative. LABORATORY DATA: EKG 06/11/2017 shows atrial fibrillation, rate of 136. IMPRESSION: New onset of atrial fibrillation, status post transesophageal echocardiography cardioversion, reverted back to atrial fibrillation, it means failed transesophageal echocardiography cardioversion, hypertension, hyperlipidemia, status post lobectomy for lung cancer four years ago, nonobstructive coronary artery disease, status post cardiac catheterization, ejection fraction 35% to 40%. RECOMMENDATIONS: Continue verapamil 240 mg daily and continue Eliquis 2.5 mg twice a day, continue atorvastatin, continue general diuretics, and continue to increase atenolol to 12.5. We will increase to 25 from tomorrow. We will follow with you. The patient was on metoprolol. Dr. Middleton yesterday changed to atenolol 25 mg daily. We will increase atenolol to 25 mg from tomorrow. Thank you Dr. Chau for providing me the opportunity in taking care of patient, Maribel Aguilera. Effie Bettencourt MD
[2017-06-15 16:45] LABS: BASO # 0.07 K/mm3 (0.0-2.0); BASO % 1.1 % (0.0-3.0); EOS # 0.1 (0.0-0.7); EOS % 2.2 % (1.5-5.0); GRAN # 4.09 (1.4-6.5); GRAN % 64.7 % (50.0-68.0); HEMATOCRIT 40.6 % (36.0-48.0); LYMPH % 15.3 % (22.0-35.0); MEAN CELL VOLUME 88.5 fl (80.0-105.0); MEAN CORPUSCULAR HEMOGLOBIN 29.8 pg (25.0-35.0); MEAN CORPUSCULAR HGB CONC 33.7 g/dl (31.0-37.0); MEAN PLATELET VOLUME 11.1 fl (7.0-11.0); MONO # 1.1 (0.1-0.6); MONO % 16.7 % (1.0-6.0); RED CELL DISTRIBUTION WIDTH 13.5 % (11.5-14.5); WHITE BLOOD COUNT 6.3 10^3/ul (4.5-11.0)
[2017-06-15 16:53] LABS: ALB/GLOB RATIO 1.5 (1.1-1.8); ALKALINE PHOSPHATASE 69 U/L (38-133); ALT/SGPT 40 U/L (7-56); AST/SGOT 40 U/L (15-39); BILIRUBIN,TOTAL 0.8 mg/dL (0.2-1.3); BLOOD UREA NITROGEN 22 mg/dL (7-21); CALCIUM 9.2 mg/dL (8.4-10.5); CARBON DIOXIDE 29 mmol/L (21-33); CHLORIDE 89 mmol/L (98-107); GFR AFRICAN-AMERICAN > 60; GLUCOSE,RANDOM 137 mg/dL (70-110); POTASSIUM 4.7 mmol/L (3.6-5.0); SODIUM 127 mmol/L (132-148); TOTAL PROTEIN 6.2 g/dL (5.8-8.3)
[2017-06-16] MEDS: Pantoprazole 40 mg EC Tab PO SCH (05:40)
[2017-06-16] MEDS: Multivitamin Therapeutic Tab PO SCH (08:26)
[2017-06-16 09:11] LABS: ALB/GLOB RATIO 1.4 (1.1-1.8); ALKALINE PHOSPHATASE 64 U/L (38-133); ALT/SGPT 37 U/L (7-56); AST/SGOT 32 U/L (15-39); BILIRUBIN,TOTAL 1.2 mg/dL (0.2-1.3); BLOOD UREA NITROGEN 18 mg/dL (7-21); CALCIUM 9.1 mg/dL (8.4-10.5); CARBON DIOXIDE 25 mmol/L (21-33); CHLORIDE 92 mmol/L (95-110); GFR AFRICAN-AMERICAN > 60; GLUCOSE,RANDOM 129 mg/dL (70-110); POTASSIUM 3.8 mmol/L (3.6-5.0); SODIUM 127 mmol/L (132-148); TOTAL PROTEIN 6.3 g/dL (5.8-8.3)
[2017-06-16] MEDS: Aritificial Tears (15ml) OU SCH ×2 (10:15→17:42)
[2017-06-16] MEDS: Verapamil 240 mg ER Tab PO SCH (10:15)
[2017-06-16] MEDS: TIMOLOL OS SCH ×2 (10:17→17:43)
[2017-06-16] MEDS: PROPYLENE GLYCOL 0.6% OU SCH ×2 (10:17→17:42)
[2017-06-16] MEDS: DORZOLAMIDE OS SCH ×2 (10:17→17:43)
[2017-06-16] MEDS: LEFLUNOMIDE 20 MG PO SCH (10:18)
[2017-06-16] MEDS: Magnesium Oxide 400 mg Tab UD PO SCH ×3 (10:19→17:43)
[2017-06-16] MEDS: Tiotropium 18 mcg Cap For Inhalation IH SCH (10:20)
[2017-06-16] MEDS: cycloSPORINE 0.05 % Opth Emulsion UD OU SCH ×2 (10:20→21:25)
--- NOTE | 2017-06-16 10:30 | RAD ---
HISTORY: SOB COMPARISON: 06/06/2017 TECHNIQUE: Chest PA and lateral FINDINGS: LUNGS: No active pulmonary disease. PLEURA: Extensive pleural thickening about right lateral thoracic cavity in right apex. Postthoracotomy changes in right ribs. CARDIOVASCULAR: Normal. OSSEOUS STRUCTURES: No significant abnormalities. VISUALIZED UPPER ABDOMEN: Normal. OTHER FINDINGS: None. IMPRESSION: Postthoracotomy changes with pleural thickening about lateral chest wall and right apex. No acute infiltrate.
[2017-06-16] MEDS ORDERED: Potassium Chloride 20 mEq ER Tab PO ONE (11:49)
--- NOTE | 2017-06-16 13:01 | CP.PCM.PN ---
<SHIELA BENTLEY - Last Filed: 06/16/17 12:53> Subjective - Date & Time of Evaluation Date of Evaluation: 06/16/17 Time of Evaluation: 12:53 - Subjective Subjective: MEDICINE PROGRESS NOTE: Pt seen and examined at bedside. Pt had no new complaints but does endorse an episode of shortness of breath yesterday afternoon after she returned from her PT at the gym. She reports that this has completely resolved and has currently asymptomatic. Pt denies any headache, dizziness, fever, chills, shortness of breath, chest pain, abdominal pain, N/V, diarrhea or any urinary symptoms. Objective - Vital Signs/Intake and Output Vital Signs (last 24 hours): Temp Pulse Resp BP Pulse Ox 98.3 F 88 18 115/73 97 06/16/17 10:51 06/16/17 10:51 06/16/17 10:51 06/16/17 10:51 06/16/17 10:51 Intake and Output: 06/16/17 06/16/17 06:59 18:59 Intake Total 360 Balance 360 - Medications Medications: Current Medications Amiodarone HCl (Cordarone) 200 mg PO DAILY YA PRN Reason: Protocol Last Admin: 06/16/17 10:16 Dose: 200 mg Apixaban (Eliquis) 2.5 mg PO BID YA PRN Reason: Protocol Last Admin: 06/16/17 10:16 Dose: 2.5 mg Artificial Tears (Artificial Tears) 0 ml OU BID YA PRN Reason: Protocol Last Admin: 06/16/17 10:15 Dose: 1 drop Ascorbic Acid (Vitamin C 500 Mg Tab) 500 mg PO DAILY YA Last Admin: 06/16/17 10:21 Dose: 500 mg Atenolol (Tenormin) 25 mg PO DAILY YA Last Admin: 06/16/17 10:20 Dose: Not Given Atorvastatin Calcium (Lipitor) 40 mg PO DIN YA PRN Reason: Protocol Last Admin: 06/15/17 17:22 Dose: 40 mg Benzocaine/Menthol (Cepacol Sore Throat) 1 josé manuel MT Q2H PRN; Protocol PRN Reason: Sore Throat Clonazepam (Klonopin) 0.5 mg PO 1000,2200 YA PRN Reason: Protocol Last Admin: 06/16/17 10:14 Dose: 0.5 mg Cyclosporine (Restasis) 1 ea OU Q12 YA Last Admin: 06/16/17 10:20 Dose: 1 ea Folic Acid (Folic Acid) 1 mg PO DAILY YA PRN Reason: Protocol Last Admin: 06/16/17 10:16 Dose: 1 mg Furosemide (Lasix) 40 mg PO DAILY YA PRN Reason: Protocol Last Admin: 06/16/17 10:17 Dose: 40 mg Furosemide (Lasix) 40 mg IV ONCE ONE Stop: 06/16/17 15:01 Gabapentin (Neurontin) 300 mg PO DAILY YA PRN Reason: Protocol Last Admin: 06/16/17 10:12 Dose: 300 mg Home Med (Home Med) 0 unit OU BID YA Last Admin: 06/16/17 10:17 Dose: 1 unit Home Med (Home Med) 0 unit OS BID YA Last Admin: 06/16/17 10:17 Dose: 1 unit Lisinopril (Zestril) 5 mg PO DAILY YA PRN Reason: Protocol Last Admin: 06/16/17 10:21 Dose: 5 mg Magnesium Oxide (Mag-Ox) 400 mg PO TID YA PRN Reason: Protocol Last Admin: 06/16/17 10:19 Dose: 400 mg Multivitamins (Thera Tab) 1 tab PO 0800 YA Last Admin: 06/16/17 08:26 Dose: 1 tab Leflunomide [Arava] (20 Mg (Home Med)) 20 mg PO DAILY YA Last Admin: 06/16/17 10:18 Dose: 20 mg Pantoprazole Sodium (Protonix Ec Tab) 40 mg PO 0600 YA PRN Reason: Protocol Last Admin: 06/16/17 05:40 Dose: 40 mg Tiotropium [place] (Spiriva) 18 mcg IH DAILY YA PRN Reason: Protocol Last Admin: 06/16/17 10:20 Dose: 18 mcg Verapamil HCl (Calan Sr Tab) 240 mg PO DAILY YA Last Admin: 06/16/17 10:15 Dose: 240 mg Zinc Sulfate (Zinc Sulfate 220 Mg Cap) 220 mg PO DAILY YA Last Admin: 06/16/17 10:21 Dose: 220 mg - Labs Labs: 06/15/17 16:35 06/16/17 08:30 - Constitutional Appears: Non-toxic, No Acute Distress - Head Exam Head Exam: ATRAUMATIC, NORMOCEPHALIC - Eye Exam Eye Exam: EOMI, Normal appearance, PERRL - ENT Exam ENT Exam: Mucous Membranes Moist, Normal Exam - Neck Exam Neck Exam: Full ROM, Normal Inspection. absent: Lymphadenopathy, Tenderness - Respiratory Exam Respiratory Exam: Clear to Ausculation Bilateral, NORMAL BREATHING PATTERN. absent: Chest Wall Tenderness, Rales, Rhonchi, Wheezes, Respiratory Distress - Cardiovascular Exam Cardiovascular Exam: Irregular Rhythm, +S1, +S2. absent: Tachycardia - GI/Abdominal Exam GI & Abdominal Exam: Soft, Normal Bowel Sounds. absent: Distended, Firm, Guarding, Tenderness - Extremities Exam Extremities Exam: Normal Capillary Refill, Pedal Edema. absent: Calf Tenderness Additional comments: +1 LE edema bilaterally - Back Exam Back Exam: absent: CVA tenderness (L), CVA tenderness (R) - Neurological Exam Neurological Exam: Alert, Awake, Oriented x3 - Psychiatric Exam Psychiatric exam: Normal Affect, Normal Mood - Skin Skin Exam: Dry, Intact, Normal Color, Warm Assessment and Plan - Assessment and Plan (Free Text) Assessment: 81 F with PMH HTN, HLD, restless leg syndrome, anxiety, lung cancer (s/p lobe resection 2012), post operative transient AF was admitted with AF with RVR , elevated troponin suggestive of NSTEMI /Demand ischemia from tachycardia, patient currently in TCU for deconditioning and continued physical therapy Plan: 1. Atrial fibrillation with RVR -S/P REECE with DC cardioversion -increased atenolol to 25mg daily -Continue verapamil 240mg daily, amiodarone 200 mg BID and eliquis 2.5 mg BID -Cardiology on consult, appreciate all recommendations -Continue PT/OT as tolerated 2. NSTEMI -S/P cardiac catherization, nonobstructing CAD -Coronary showed no significant stenosis -EF estimated to be 25-30% during Coronary Catherization -Continue Lipitor 40mg daily and ASA 3. Congestive Heart Failure, Systolic -Echo suggestive systolic heart failure with EF 35% -patient had an episode of SOB on 06/15; chest xray was ordered and unchanged from previous studies -Continue lasix 40 mg PO BID, spirinolactone 25 mg PO Daily, and lisinopril 4. Hyponatremia -sodium at 127 on both 06/15 and 06/16 -currently asymptomatic -Continue to monitor 5. History of Rheumatoid Arthritis -Continue home medications 6. Anxiety -Continue Klonopin PRN 7. History of Lung CA, s/p resection -Continue spiriva 8. GI Prophylaxis -Protonix Patient seen and case discussed with attending, Dr. Jett Chau <Jett Chau - Last Filed: 06/17/17 17:01> Objective - Vital Signs/Intake and Output Vital Signs (last 24 hours): Temp Pulse Resp BP Pulse Ox 98.3 F 88 18 90/59 L 97 06/16/17 10:51 06/16/17 10:51 06/16/17 10:51 06/16/17 14:48 06/16/17 10:51 Intake and Output: 06/16/17 06/16/17 06:59 18:59 Intake Total 360 Balance 360 - Medications Medications: Current Medications Amiodarone HCl (Cordarone) 200 mg PO DAILY YA PRN Reason: Protocol Last Admin: 06/16/17 10:16 Dose: 200 mg Apixaban (Eliquis) 2.5 mg PO BID YA PRN Reason: Protocol Last Admin: 06/16/17 10:16 Dose: 2.5 mg Artificial Tears (Artificial Tears) 0 ml OU BID YA PRN Reason: Protocol Last Admin: 06/16/17 10:15 Dose: 1 drop Ascorbic Acid (Vitamin C 500 Mg Tab) 500 mg PO DAILY YA Last Admin: 06/16/17 10:21 Dose: 500 mg Atenolol (Tenormin) 25 mg PO DAILY YA Last Admin: 06/16/17 10:20 Dose: Not Given Atorvastatin Calcium (Lipitor) 40 mg PO DIN YA PRN Reason: Protocol Last Admin: 06/15/17 17:22 Dose: 40 mg Benzocaine/Menthol (Cepacol Sore Throat) 1 josé manuel MT Q2H PRN; Protocol PRN Reason: Sore Throat Clonazepam (Klonopin) 0.5 mg PO 1000,2200 YA PRN Reason: Protocol Last Admin: 06/16/17 10:14 Dose: 0.5 mg Cyclosporine (Restasis) 1 ea OU Q12 YA Last Admin: 06/16/17 10:20 Dose: 1 ea Folic Acid (Folic Acid) 1 mg PO DAILY YA PRN Reason: Protocol Last Admin: 06/16/17 10:16 Dose: 1 mg Furosemide (Lasix) 40 mg PO DAILY AY PRN Reason: Protocol Last Admin: 06/16/17 10:17 Dose: 40 mg Gabapentin (Neurontin) 300 mg PO DAILY YA PRN Reason: Protocol Last Admin: 06/16/17 10:12 Dose: 300 mg Home Med (Home Med) 0 unit OU BID YA Last Admin: 06/16/17 10:17 Dose: 1 unit Home Med (Home Med) 0 unit OS BID YA Last Admin: 06/16/17 10:17 Dose: 1 unit Lisinopril (Zestril) 5 mg PO DAILY YA PRN Reason: Protocol Last Admin: 06/16/17 10:21 Dose: 5 mg Magnesium Oxide (Mag-Ox) 400 mg PO TID YA PRN Reason: Protocol Last Admin: 06/16/17 14:48 Dose: 400 mg Multivitamins (Thera Tab) 1 tab PO 0800 [facility] Last Admin: 06/16/17 08:26 Dose: 1 tab Leflunomide [Arava] (20 Mg (Home Med)) 20 mg PO DAILY [facility] Last Admin: 06/16/17 10:18 Dose: 20 mg Pantoprazole Sodium (Protonix Ec Tab) 40 mg PO 0600 [facility] PRN Reason: Protocol Last Admin: 06/16/17 05:40 Dose: 40 mg Tiotropium [place] (Spiriva) 18 mcg IH DAILY [facility] PRN Reason: Protocol Last Admin: 06/16/17 10:20 Dose: 18 mcg Verapamil HCl (Calan Sr Tab) 240 mg PO DAILY [facility] Last Admin: 06/16/17 10:15 Dose: 240 mg Zinc Sulfate (Zinc Sulfate 220 Mg Cap) 220 mg PO DAILY [facility] Last Admin: 06/16/17 10:21 Dose: 220 mg - Labs Labs: 06/15/17 16:35 06/16/17 08:30 Attending/Attestation - Attestation I have personally seen and examined this patient.: Yes I have fully participated in the care of the patient.: Yes I have reviewed all pertinent clinical information, including history, physical exam and plan: Yes Notes (Text): I have seen and examined the patient at bedside with the resident. Agree with the note above with the following additions/ exceptions: Briefly this is 81 year old female with history of HTN, CHF (EF~25-35%), dyslipidemia, anxiety, lung cancer (s/p lobe resection 2012), post operative transient AF was admitted with AF with RVR and NSTEMI. Patient underwent Cardiac cath and found to have non obstructive CAD. She underwent cardioversion however she converted back to afib . Verapamil and atenolol was increased. She is on eliquis for anticoagulation. CHF is improving. Leg swelling and dyspnea has significantly improved. Renal functions are stable. Continue apirin, lipitor, lasix, amiodarone and lisinopril. She has hyponatremia. Will order serum/urine osmolarity and urine sodium.Upon discharge patient will follow up with Dr Muñoz. Dr Jett Chau
--- NOTE | 2017-06-16 21:18 | PN ---
DATE: 06/16/2017 SUBJECTIVE: The patient denies any chest pain , shortness of breath or any palpation. Feels better last night. Complaining of some shortness of breath. OBJECTIVE: GENERAL: Sitting on the chair, not in apparent distress, talking to the daughter on phone with a long distance call. Rest of examination as follows: VITAL SIGNS: Temperature afebrile, heart rate 80, blood pressure 115/73. HEENT: PERRLA. Extraocular muscles intact. NECK: Supple. No carotid bruits or thyromegaly. CHEST Clear to auscultation. HEART: S1 and S2, regular. ABDOMEN: Soft. EXTREMITIES: Clubbing and cyanosis negative. LABORATORY DATA: Blood workup as follows: WBC 6.3, hemoglobin 13 percent, hematocrit 40.6, platelet count 163. Chemistry shows sodium 127, potassium *------*, carbon dioxide 25, anion gap of 14, BUN 18, creatinine 0.5. Chest x-ray is normal, did not show any sign of acute CHF. IMPRESSION: An 81-year-old female with past medical history significant for lung cancer, status post lobectomy in the past, admitted with acute decompensated congestive heart failure, atrial fibrillation new onset, troponin positive, non-ST segment myocardial infarction, status post cardiac catheterization, nonobstructive coronary artery disease, status post transesophageal echocardiography cardioversion, the patient remained in sinus for 24-48 hours and then the patient reverted back to atrial fibration, hypertension, hyperlipidemia, as mentioned history of lobectomy for lung cancer 4-5 years ago, nonobstructive coronary artery disease, status post cardiac catheterization, ejection fraction of 35% to 40%. RECOMMENDATIONS: Continue verapamil 240 mg daily, continue Eliquis 2.5 mg daily, continue atorvastatin, continue gentle diuretics, and increased atenolol to 25 mg daily. Continue Lasix 40 mg p.o. We will give extra dose at 3 p.m. We will give 40 mEq of K-Dur as well. We will follow electrolytes for hyponatremia. We will repeat the lab in the morning, see the hyponatremia and hypokalemia. We will follow with you. Thank you Dr. Chau for providing me the opportunity in taking care of Pawanandressasayra Maribel. Effie Bettencourt MD
[2017-06-17] MEDS: Pantoprazole 40 mg EC Tab PO SCH (05:53)
[2017-06-17 07:59] LABS: BLOOD UREA NITROGEN 20 mg/dL (7-21); CALCIUM 8.7 mg/dL (8.4-10.5); CARBON DIOXIDE 27 mmol/L (21-33); CHLORIDE 94 mmol/L (98-107); GFR AFRICAN-AMERICAN > 60; GLUCOSE,RANDOM 79 mg/dL (70-110); POTASSIUM 3.8 mmol/L (3.6-5.0); SODIUM 127 mmol/L (132-148)
[2017-06-17] MEDS: Multivitamin Therapeutic Tab PO SCH (08:44)
[2017-06-17] MEDS: Aritificial Tears (15ml) OU SCH ×2 (10:19→17:37)
[2017-06-17] MEDS: Verapamil 240 mg ER Tab PO SCH (10:19)
[2017-06-17] MEDS: DORZOLAMIDE OS SCH ×2 (10:22→17:38)
[2017-06-17] MEDS: TIMOLOL OS SCH ×2 (10:22→17:38)
[2017-06-17] MEDS: PROPYLENE GLYCOL 0.6% OU SCH ×2 (10:23→17:36)
[2017-06-17] MEDS: LEFLUNOMIDE 20 MG PO SCH (10:24)
[2017-06-17] MEDS: Magnesium Oxide 400 mg Tab UD PO SCH ×3 (10:25→17:38)
[2017-06-17] MEDS: cycloSPORINE 0.05 % Opth Emulsion UD OU SCH ×2 (10:26→22:18)
[2017-06-17] MEDS: Tiotropium 18 mcg Cap For Inhalation IH SCH (10:26)
--- NOTE | 2017-06-17 15:30 | CARD ---
APPROVED REPORT EKG Measurement Heart [id number] CO [id number] <Conclusion> Sinus bradycardia Right axis deviation Consider anterior and lateral ischemic T wave changes Prolonged QT Abnormal ECG
--- NOTE | 2017-06-17 17:31 | PN ---
DATE: 06/17/2017 Room 314, bed 1. REASON FOR CONSULTATION: Atrial fibrillation. SUBJECTIVE: The patient is sitting in chair, also getting physical therapy. Denies any chest pain, shortness of breath, or palpitations. PHYSICAL EXAMINATION: VITAL SIGNS: Blood pressure 129/59, respirations 20, pulse 71, patient is afebrile. HEENT: Head is normocephalic. Eyes; pupils normal. Conjunctivae, normal. Nose and throat, normal. NECK: JVP low. Carotids equal. Thorax; AP diameter normal. LUNGS: No rales. CARDIOVASCULAR: S1 and S2. ABDOMEN: Soft and nontender. No organomegaly. EXTREMITIES: No clubbing. No cyanosis. LABORATORY DATA: WBC 6.3, hemoglobin 13.7, hematocrit 40.6, and platelets 163. Sodium 127, potassium 3.8, BUN 20, creatinine 0.8, and calcium 8.7. Chest x-ray on 06/15/2017 showed extensive pleural thickening about right lateral third thoracic cavity in right apex, post thoracotomy changes in right ribs. DIAGNOSES: History of lung cancer, status post lobectomy; decompensated congestive heart failure; atrial fibrillation, new onset; slightly elevated troponin; non-ST segment myocardial infarction, status post cardiac catheterization; nonobstructive coronary artery disease, status post transesophageal echocardiography cardioversion with which the patient stayed in sinus 24-48 hours and then he went back to atrial fibrillation, hypertension, hyperlipidemia, history of lobectomy for lung cancer 4-5 years ago, on cardiac catheterization, ejection fraction of 35% to 40%. PLAN: The patient's heart rate seems to be regular today, but will do the EKG. In the meantime, the patient is getting physical therapy and patient is continued on amiodarone 200 mg p.o. daily, Eliquis 2.5 b.i.d., verapamil as 240 p.o. daily, amiodarone 200 daily, folic acid 1 mg daily, furosemide 40 p.o. daily, atorvastatin 40 p.o. daily, magnesium oxide 400 mg p.o. t.i.d, Neurontin 300 mg p.o. daily, Protonix 40 daily, and Spiriva 18 mcg IH daily. We will follow. Effie Middleton MD
[2017-06-18] MEDS: Pantoprazole 40 mg EC Tab PO SCH (05:47)
[2017-06-18 06:07] LABS: ALB/GLOB RATIO 1.2 (1.1-1.8); ALKALINE PHOSPHATASE 61 U/L (38-133); ALT/SGPT 33 U/L (7-56); AST/SGOT 25 U/L (15-39); BILIRUBIN,TOTAL 0.9 mg/dL (0.2-1.3); BLOOD UREA NITROGEN 24 mg/dL (7-21); CARBON DIOXIDE 26 mmol/L (21-33); CHLORIDE 92 mmol/L (95-110); GFR AFRICAN-AMERICAN > 60; GLUCOSE,RANDOM 72 mg/dL (70-110); POTASSIUM 4.1 mmol/L (3.6-5.0); SODIUM 126 mmol/L (132-148); TOTAL PROTEIN 5.7 g/dL (5.8-8.3)
[2017-06-18 06:47] LABS: BASO # 0.08 K/mm3 (0.0-2.0); BASO % 1.6 % (0.0-3.0); EOS # 0.3 (0.0-0.7); EOS % 5.6 % (1.5-5.0); GRAN # 1.93 (1.4-6.5); GRAN % 38.6 % (50.0-68.0); HEMATOCRIT 37.6 % (36.0-48.0); LYMPH # 1.6 (1.2-3.4); MEAN CELL VOLUME 88.7 fl (80.0-105.0); MEAN CORPUSCULAR HEMOGLOBIN 29.5 pg (25.0-35.0); MEAN CORPUSCULAR HGB CONC 33.2 g/dl (31.0-37.0); MEAN PLATELET VOLUME 11.1 fl (7.0-11.0); MONO # 1.2 (0.1-0.6); MONO % 23.2 % (1.0-6.0); PLATELET COUNT 132 10^3/uL (120.0-450.0); RED CELL DISTRIBUTION WIDTH 13.5 % (11.5-14.5)
[2017-06-18 08:05] LABS: ANISOCYTOSIS 1+; BAND 3 % (0-2); NEUTROPHIL 45 % (50.0-70.0); PLATELET ESTIMATE NORMAL (NORMAL)
[2017-06-18 08:06] LABS: LARGE PLATELETS PRESENT
[2017-06-18] MEDS: Multivitamin Therapeutic Tab PO SCH (09:00)
[2017-06-18] MEDS: Aritificial Tears (15ml) OU SCH ×2 (10:35→18:47)
[2017-06-18] MEDS: Tiotropium 18 mcg Cap For Inhalation IH SCH (10:40)
[2017-06-18] MEDS: Magnesium Oxide 400 mg Tab UD PO SCH ×3 (10:41→18:48)
[2017-06-18] MEDS: cycloSPORINE 0.05 % Opth Emulsion UD OU SCH ×2 (10:44→22:56)
[2017-06-18] MEDS: LEFLUNOMIDE 20 MG PO SCH (10:45)
[2017-06-18] MEDS: DORZOLAMIDE OS SCH ×2 (10:46→18:48)
[2017-06-18] MEDS: PROPYLENE GLYCOL 0.6% OU SCH ×2 (10:46→19:01)
[2017-06-18] MEDS: TIMOLOL OS SCH ×2 (10:46→18:48)
[2017-06-18] MEDS: Verapamil 240 mg ER Tab PO SCH (10:52)
--- NOTE | 2017-06-18 13:13 | CP.PCM.PN ---
Subjective - Date & Time of Evaluation Date of Evaluation: 06/18/17 Time of Evaluation: 07:45 - Subjective Subjective: Angelica Beltran DO, PGY-1, Internal Medicine, Hospitalist service Patient seen and examined at bedside. Per nursing, no acute events overnight. Patient is doing well, participates in physical therapy and tolerating diet. Denies any complaints today. Reports feeling anxious about taking a lot of medication. Denies headaches, dizziness, visual changes, chest pain, palpitations, sob, abdominal pain, urinary symptoms, changes in bowel habits. Objective - Vital Signs/Intake and Output Vital Signs (last 24 hours): Temp Pulse Resp BP Pulse Ox 98.1 F 57 L 19 129/70 95 06/18/17 06:00 06/18/17 10:47 06/18/17 06:00 06/18/17 10:46 06/18/17 06:00 - Medications Medications: Current Medications Amiodarone HCl (Cordarone) 200 mg PO DAILY YA PRN Reason: Protocol Last Admin: 06/18/17 10:47 Dose: Not Given Apixaban (Eliquis) 2.5 mg PO BID YA PRN Reason: Protocol Last Admin: 06/18/17 10:47 Dose: 2.5 mg Artificial Tears (Artificial Tears) 0 ml OU BID YA PRN Reason: Protocol Last Admin: 06/18/17 10:35 Dose: 1 drop Ascorbic Acid (Vitamin C 500 Mg Tab) 500 mg PO DAILY YA Last Admin: 06/18/17 10:40 Dose: 500 mg Atenolol (Tenormin) 25 mg PO DAILY YA Last Admin: 06/18/17 10:42 Dose: Not Given Atorvastatin Calcium (Lipitor) 40 mg PO DIN YA PRN Reason: Protocol Last Admin: 06/17/17 17:38 Dose: 40 mg Benzocaine/Menthol (Cepacol Sore Throat) 1 josé manuel MT Q2H PRN; Protocol PRN Reason: Sore Throat Clonazepam (Klonopin) 0.5 mg PO 1000,2200 YA PRN Reason: Protocol Last Admin: 06/18/17 10:55 Dose: 0.5 mg Cyclosporine (Restasis) 1 ea OU Q12 YA Last Admin: 06/18/17 10:44 Dose: 1 ea Folic Acid (Folic Acid) 1 mg PO DAILY YA PRN Reason: Protocol Last Admin: 06/18/17 10:46 Dose: 1 mg Furosemide (Lasix) 40 mg PO DAILY [facility] PRN Reason: Protocol Last Admin: 06/18/17 10:46 Dose: 40 mg Gabapentin (Neurontin) 300 mg PO DAILY YA PRN Reason: Protocol Last Admin: 06/18/17 10:41 Dose: 300 mg Home Med (Home Med) 0 unit OU BID [facility] Last Admin: 06/18/17 10:46 Dose: 1 unit Home Med (Home Med) 0 unit OS BID [facility] Last Admin: 06/18/17 10:46 Dose: 1 unit Lisinopril (Zestril) 5 mg PO DAILY [facility] PRN Reason: Protocol Last Admin: 06/18/17 10:43 Dose: 5 mg Magnesium Oxide (Mag-Ox) 400 mg PO TID [facility] PRN Reason: Protocol Last Admin: 06/18/17 13:06 Dose: 400 mg Multivitamins (Thera Tab) 1 tab PO 0800 [facility] Last Admin: 06/18/17 09:00 Dose: 1 tab Leflunomide [Arava] (20 Mg (Home Med)) 20 mg PO DAILY [facility] Last Admin: 06/18/17 10:45 Dose: 20 mg Pantoprazole Sodium (Protonix Ec Tab) 40 mg PO 0600 [facility] PRN Reason: Protocol Last Admin: 06/18/17 05:47 Dose: 40 mg Tiotropium [place] (Spiriva) 18 mcg IH DAILY [facility] PRN Reason: Protocol Last Admin: 06/18/17 10:40 Dose: 18 mcg Verapamil HCl (Calan Sr Tab) 120 mg PO DAILY [facility] Zinc Sulfate (Zinc Sulfate 220 Mg Cap) 220 mg PO DAILY [facility] Last Admin: 06/18/17 10:44 Dose: 220 mg - Labs Labs: 06/18/17 05:20 06/18/17 05:20 - Constitutional Appears: Well, No Acute Distress - Head Exam Head Exam: ATRAUMATIC, NORMAL INSPECTION - Eye Exam Eye Exam: EOMI, Normal appearance Pupil Exam: NORMAL ACCOMODATION - ENT Exam ENT Exam: Mucous Membranes Moist - Neck Exam Neck Exam: Full ROM - Respiratory Exam Respiratory Exam: Clear to Ausculation Bilateral, NORMAL BREATHING PATTERN. absent: Rales, Rhonchi, Wheezes - Cardiovascular Exam Cardiovascular Exam: REGULAR RHYTHM, +S1, +S2 - GI/Abdominal Exam GI & Abdominal Exam: Soft, Normal Bowel Sounds. absent: Guarding, Rigid, Tenderness, Rebound - Rectal Exam Rectal Exam: Deferred - Extremities Exam Extremities Exam: absent: Calf Tenderness, Tenderness Additional comments: +1 LE Edema Bilaterally - Back Exam Back Exam: NORMAL INSPECTION - Neurological Exam Neurological Exam: Alert, Awake, Oriented x3 - Psychiatric Exam Psychiatric exam: Normal Affect, Normal Mood - Skin Skin Exam: Dry, Normal Color, Warm Assessment and Plan - Assessment and Plan (Free Text) Assessment: 81 F with PMH HTN, HLD, restless leg syndrome, anxiety, lung cancer (s/p lobe resection 2012), post operative transient AF was admitted with AF with RVR , elevated troponin suggestive of NSTEMI /Demand ischemia from tachycardia, patient currently in TCU for deconditioning and continued physical therapy Plan: 1. Atrial fibrillation with RVR -S/P REECE with DC cardioversion -Continue atenolol 25mg daily -Verapamil decreased to 120mg daily, -Continue Amiodarone 200 mg BID and Eliquis 2.5 mg BID -Cardiology on consult, appreciate all recommendations -Continue PT/OT as tolerated 2. NSTEMI -S/P cardiac catherization, nonobstructing CAD -Coronary showed no significant stenosis -EF estimated to be 25-30% during Coronary Catherization -Continue Lipitor 40mg daily and ASA 3. Congestive Heart Failure, Systolic -Echo suggestive systolic heart failure with EF 35% -Continue lasix 40 mg PO BID, spirinolactone 25 mg PO Daily, and lisinopril 4. Hyponatremia -Sodium at 126 today -F/U urine sodium -Nephrology consulted, f/u recommendations -Continue to monitor 5. History of Rheumatoid Arthritis -Continue home medications 6. Anxiety -Continue Klonopin PRN 7. History of Lung CA, s/p resection -Continue spiriva 8. GI Prophylaxis -Protonix
--- NOTE | 2017-06-18 15:58 | PN ---
DATE: 06/16/2017 REASON FOR THE CONSULTATION: AFib, status post REECE cardioversion, status post cardiac catheterization, reverted to proximal atrial fibrillation. SUBJECTIVE: Denies any chest pain, shortness of breath, or any palpitation. Feels better. OBJECTIVE: GENERAL: Sitting in a chair, not in apparent distress. VITAL SIGNS: Temperature afebrile, heart rate 57, blood pressure 128/70. HEENT: PERRLA. Extraocular muscles intact. NECK: Supple. No carotid bruits or thyromegaly. CHEST Clear to auscultation. HEART: S1 and S2, regular. ABDOMEN: Soft. EXTREMITIES: Clubbing and cyanosis negative. LABORATORY DATA: Blood workup as follows: WBC 5.0, hemoglobin 12.5. hematocrit 37.6, platelet count 132. Chemistry shows sodium 126, potassium 4.1, chloride 90, carbon dioxide 26, anion gap of 12, BUN 24, creatinine 0.8. IMPRESSION: New onset of atrial fibrillation, status post transesophageal echocardiography cardioversion, reverted back to atrial fibrillation, and now patient back and again in sinus. Yesterday, a repeat EKG was done, sinus bradycardia. Status post cardiac catheterization, nonobstructive coronary artery disease, rheumatoid arthritis, and cardiomyopathy. RECOMMENDATIONS: Continue Eliquis 2.5 mg daily, continue atenolol, continue verapamil 240 mg. If becomes more bradycardic, we can decrease verapamil to 120 mg from tomorrow because patient's blood pressure yesterday was lower side. We will decrease again verapamil to 120 mg. We will follow the heart rate and blood pressure. Monitor for hyponatremia. Since the patient is going back and forth and the patient is on Eliquis, if the patient goes back in atrial fibrillation again, we will discontinue amiodarone. If remains in sinus rhythm, we will continue amiodarone for now. We will follow with you. Thank you Dr. Chau for providing me the opportunity in taking care of patient, Maribel Aguilera. Effie Bettencourt MD
--- NOTE | 2017-06-19 03:09 | CON ---
DATE: 06/18/2017 The patient admitted for Dr. Effie Parrish MD. REFERRING MD: Dr. Frausto. REASON FOR CONSULTATION: Evaluation of the patient, unknown to me, who has worsening hyponatremia in the setting of diabetic therapy. HISTORY OF PRESENT ILLNESS: The patient is an 81-year-old white female with a history of hypertension, history of lower extremity edema, on Lasix therapy, history of lung cancer status post lobe resection 4 years ago in [place]. The patient was referred to acute care by Dr. Huang because of paroxysmal atrial fibrillation with rapid ventricular response. She was found have an NSTEMI. She is status post REECE and cardioversion. She is currently on chronic anticoagulation. She has a history of rheumatoid arthritis, on medical therapy, history of hyperlipidemia. The patient is completing her stay in the TCU and was noted to have worsening of her hyponatremia. Her sodium on admission was 130 with the use of Lasix on a daily basis for lower extremity edema, sodium is down to 126, where I was asked to elevate the patient for her hyponatremia. PAST MEDICAL HISTORY: Significant for hypertension, history of lung cancer status post lobe resection, history of arterial fibrillation with rapid ventricular response status post cardioversion with REECE on chronic anticoagulation, history of NSTEMI, history of hyperlipidemia, history rheumatoid arthritis, status post right knee replacement, status post left hip replacement. MEDICATIONS: Current medications include that of artificial tear, Calan, Cepacol, amiodarone, Eliquis, folic acid, eye drops, Klonopin, p.o. Lasix, Arava, Lipitor, mag oxide, Neurontin, Protonix, Restasis, Spiriva, Tenormin, multivitamins, vitamin C, Zestril, and zinc. ALLERGIES: THE PATIENT HAS NO KNOW ALLERGIES TO MEDICATION. SOCIAL HISTORY: Past history of cigarettes smoking, no cigarettes for many years, no history of alcohol use. FAMILY HISTORY: Positive for hypertension. REVIEW OF SYSTEMS: A 10 positive systems reviewed with the patient. All negative except for what is noted above. GENERAL: The patient's appetite and weight have been stable. ENT: She denies any hearing or visual problems. PULMONARY: At present, no shortness of breath. No history of COPD, history asthma, and no history of recent pneumonia. CARDIAC: History is noted above. Positive for atrial fibrillation with rapid ventricular response. Status post cardiac catheterization. History of tricuspid regurgitation, seen on echo cardiogram. GASTROINTESTINAL: No nausea, no vomiting, no diarrhea, or constipation. GENITOURINARY: No history of UTIs. No history of chronic kidney disease. GYNECOLOGIC: Postmenopausal. ENDOCRINE: No history of diabetes. MUSCULOSKELETAL: No ongoing complaints. NEUROLOGIC: No history of CVA, TIA, seizures or syncope. HEME/ONC: No history of anemia. Past history of lung cancer status post lobe resection. PSYCHIATRIC: History is negative. PHYSICAL EXAMINATION: GENERAL: The patient is currently seen in TCU, sitting up in a chair, she is entirely comfortably, she anticipates being discharged tomorrow. VITAL SINGS: Blood pressure 111/62, temperature 97.8, pulse 60 with a respiratory rate of 18, and pulse ox is 97%. HEENT: Shows her to be normocephalic and atraumatic. Conjunctivae are pink. Sclerae anicteric. NECK: Supple. No neck vein distension. No thyromegaly. No lymphadenopathy. No bruits. CHEST: Clear to auscultation and percussion. No rales. No rhonchi. No wheezing. CARDIOVASCULAR: Shows a regular rate and rhythm with TR. No S3, no S4, no rub. ABDOMEN: Soft. Bowel sounds are normal. No masses, no rebound, no guarding. BACK: No CVAT. No spinal tenderness. EXTREMITIES: Shows trace pitting ankle edema of her lower extremity bilaterally. No cyanosis, no clubbing. Diminished lower extremity pulses bilaterally at 1 to 2+. NEUROLOGIC: Shows her to be alert and oriented x3 with no gross focal motor or sensory deficits. LABORATORY DATA AND IMAGING: Last chest x-ray is done prior to TCU stay; showed no evidence of CHF. Her last EKG showed a sinus rhythm post cardioversion. CBC white blood cell count 5.0, today with a hemoglobin 12.5, and a platelet count is 132,000. Chemistry shows a sodium which is 130 on 06/14/2017, it is currently 126 today. Potassium 4.1, chloride 92 with a CO2 of 26. BUN with thyroid therapy up to 24 from a low of 18, creatinine is stable at 0.8. Glucose is 72, calcium is 9.0, phosphorus and magnesium on 06/14/2017 were normal. Liver enzymes are normal. Albumin is 3.1. Her serum osmolality was 274 with a urine osmolality of 354. Urine electrolytes were not done likely because the patient was on diabetic therapy. TSH level was done during the acute part of her hospitalization was normal. ASSESSMENT: 1. Hyponatremia, the patient appears to be euvolemic. In all likelihood, she has a mild depletion of hyponatremia in part secondary to continue to use of diabetic therapy. The patient did not have congestive heart failure, but she had treated for lower extremity edema with diabetic therapy. The patient had not been using diabetics at home. I will discontinue her diuretics and fluid restriction. Hopefully, we will see her sodium level that gradually improves. As long as her sodium level continues to rise on fluid restriction, I seen no reason that she cannot be discharged home tomorrow as planned. 2. History of hypertension, blood pressure controlled on present medical therapy. 3. History of lung cancer status post lobe resection appears to be stable. 4. History of atrial fibrillation with rapid ventricular response with non-ST elevation myocardial infarction on admission to acute care in mid May. She is status post transesophageal echocardiography with cardioversion. She remains on medication for rate control, remains on antiarrhythmic therapy and is currently on chronic anticoagulation. 5. History of rheumatoid arthritis stable on medical therapy. 6. History of hyperlipidemia, controlled. PLAN: 1. We will obtain a urine sodium, urine osmolality, tonight. In all likelihood, her urine sodium will be elevated secondary to the use of diuretics. 2. I have discussed with the patient the need for fluid restriction, I will decrease her fluids to 1250 mL a day. 3. Neurologic. If any IV fluid administration with isotonic saline, as I expect her sodium level to slowly increase with discontinuation of diabetic therapy and fluid restriction. 4. Continue present blood pressure medication. 5. Cardiology followup appreciated. 6. Continue low dose beta-luis f therapy along with verapamil as per cardiology. 7. We will repeat her lab work tomorrow morning. As long as her serum sodium level is now well within 126, I see no reason why the patient cannot be discharged home. Thank you for letting me partake and share in the care of your patient. Brady Davis MD
[2017-06-19] MEDS: Pantoprazole 40 mg EC Tab PO SCH (06:04)
[2017-06-19 07:23] LABS: ALB/GLOB RATIO 1.4 (1.1-1.8); ALKALINE PHOSPHATASE 66 U/L (38-133); ALT/SGPT 30 U/L (7-56); AST/SGOT 28 U/L (15-39); BILIRUBIN,TOTAL 0.8 mg/dL (0.2-1.3); BLOOD UREA NITROGEN 19 mg/dL (7-21); CALCIUM 8.7 mg/dL (8.4-10.5); CARBON DIOXIDE 28 mmol/L (21-33); CHLORIDE 94 mmol/L (98-107); GFR AFRICAN-AMERICAN > 60; GLUCOSE,RANDOM 78 mg/dL (70-110); PHOSPHOROUS 3.2 mg/dL (2.5-4.5); POTASSIUM 3.8 mmol/L (3.6-5.0); SODIUM 128 mmol/L (132-148); TOTAL PROTEIN 5.6 g/dL (5.8-8.3); URIC ACID 5.7 mg/dL (2.5-6.2)
--- NOTE | 2017-06-19 08:00 | CP.PCM.DIS ---
Provider - Provider Date of Admission: 06/11/17 19:13 Attending physician: Jett Chau MD Consults: Nephro: Dr Davis Cardiology: Dr Bettencourt Time Spent in preparation of Discharge (in minutes): 34 Diagnosis - Discharge Diagnosis (1) Atrial fibrillation with RVR Status: Acute (2) NSTEMI (non-ST elevated myocardial infarction) Status: Acute Hospital Course - Lab Results Lab Results: Most Recent Lab Values WBC 5.0 10^3/ul (4.5-11.0) D 06/18/17 05:20 RBC 4.24 10^6/uL (3.5-6.1) 06/18/17 05:20 Hgb 12.5 g/dL (12.0-16.0) 06/18/17 05:20 Hct 37.6 % (36.0-48.0) 06/18/17 05:20 MCV 88.7 fl (80.0-105.0) 06/18/17 05:20 MCH 29.5 pg (25.0-35.0) 06/18/17 05:20 MCHC 33.2 g/dl (31.0-37.0) 06/18/17 05:20 RDW 13.5 % (11.5-14.5) 06/18/17 05:20 Plt Count 132 10^3/uL (120.0-450.0) 06/18/17 05:20 MPV 11.1 fl (7.0-11.0) H 06/18/17 05:20 Gran % 38.6 % (50.0-68.0) L 06/18/17 05:20 Lymph % (Auto) 31.0 % (22.0-35.0) 06/18/17 05:20 [place] % (Auto) 23.2 % (1.0-6.0) H 06/18/17 05:20 Eos % (Auto) 5.6 % (1.5-5.0) H 06/18/17 05:20 Baso % (Auto) 1.6 % (0.0-3.0) 06/18/17 05:20 Gran # 1.93 (1.4-6.5) 06/18/17 05:20 Lymph # 1.6 (1.2-3.4) 06/18/17 05:20 [place] # 1.2 (0.1-0.6) H 06/18/17 05:20 Eos # 0.3 (0.0-0.7) 06/18/17 05:20 Baso # 0.08 K/mm3 (0.0-2.0) 06/18/17 05:20 Neutrophils % (Manual) 45 % (50.0-70.0) L 06/18/17 05:20 Band Neutrophils % 3 % (0-2) H 06/18/17 05:20 Lymphocytes % (Manual) 40 % (22.0-35.0) H 06/18/17 05:20 Monocytes % (Manual) 12 % (1.0-6.0) H 06/18/17 05:20 Platelet Evaluation Normal (NORMAL) 06/18/17 05:20 Large Platelets Present 06/18/17 05:20 Anisocytosis (manual) 1+ 06/18/17 05:20 Sodium 128 mmol/L (132-148) L 06/19/17 06:20 Potassium 3.8 mmol/L (3.6-5.0) 06/19/17 06:20 Chloride 94 mmol/L (98-107) L 06/19/17 06:20 Carbon Dioxide 28 mmol/L (21-33) 06/19/17 06:20 Anion Gap 10 (10-20) 06/19/17 06:20 BUN 19 mg/dL (7-21) 06/19/17 06:20 Creatinine 0.7 mg/dL (0.5-1.4) 06/19/17 06:20 Est GFR ( Amer) > 60 06/19/17 06:20 Est GFR (Non-Af Amer) > 60 06/19/17 06:20 Random Glucose 78 mg/dL (70-110) 06/19/17 06:20 Serum Osmolality 274 mosm/kg (271-296) 06/17/17 07:27 Uric Acid 5.7 mg/dL (2.5-6.2) 06/19/17 06:20 Calcium 8.7 mg/dL (8.4-10.5) 06/19/17 06:20 Phosphorus 3.2 mg/dL (2.5-4.5) 06/19/17 06:20 Magnesium 2.0 mg/dL (1.7-2.2) 06/19/17 06:20 Total Bilirubin 0.8 mg/dL (0.2-1.3) 06/19/17 06:20 AST 28 U/L (15-39) 06/19/17 06:20 ALT 30 U/L (7-56) 06/19/17 06:20 Alkaline Phosphatase 66 U/L (38-133) 06/19/17 06:20 Total Protein 5.6 g/dL (5.8-8.3) L 06/19/17 06:20 Albumin 3.3 g/dL (3.0-4.8) 06/19/17 06:20 Globulin 2.3 gm/dL 06/19/17 06:20 Albumin/Globulin Ratio 1.4 (1.1-1.8) 06/19/17 06:20 Urine Osmolality 354 mosm/kg (50-645) 06/18/17 04:40 - Hospital Course Hospital Course: 81 F with PMH HTN, HLD, restless leg syndrome, anxiety, lung cancer (s/p lobe resection) was transferred to TCU from medical/surgical floor for deconditioning and continued physical therapy. Patient presented to [facility] with a- fib with RVR after being sent from [place]. Patient was at home when she started to experience chest pain and palpitations. At PMD office, was found to be in A fib with RVR. Patient was hospitalized and monitored on telemetry. Elevated troponins suggestive of NSTEMI, Cardiac cath showed non-obstructing CAD with EF approx 35% and Moderate TR. Patient subsequently underwent REECE with DC cardioversion. Currently normal sinus rhythm and on eliquis for anticoagulation. Patient transferred yesterday to TCU for continued care. While in the TCU, management was continued. Cardiology continued to see the patient. During her stay, EKG showed that rhythm converted back to afib with RVR. Verampamil was increased to 240mg daily. Patient reverted back to sinus rhythm. Since patient was also bradycardic, Verapamil dose was decreased to 120mg daily. Labs were monitored. Patient was found to be hyponatremic with sodium 126. Patient was asymptomatic. Urine sodium and serum osm were ordered. Nephrology was consulted. Lasix was discontinued and patient was placed on 1250ml fluid restriction. Sodium improved, 128. Patient participated in physical therapy during her stay. On day of discharge, patient was doing well, tolerated diet. Denies any headaches, dizziness, chest pain, palpitations, shortness of breath, abdominal pain, urinary symptoms, changes in bowel habits. Medications were reviewed and reconciled. Prescriptions were sent to [facility] pharmacy. Patient informed that she will need to follow up with Nephrology and Cardiology within 1 week. Will need to determine when to restart Lasix. Script was written for outpatient physical therapy. Patient was medically stable, all questions and concerns were addressed. Discharge Exam - Head Exam Head Exam: ATRAUMATIC, NORMAL INSPECTION - Eye Exam Eye Exam: EOMI, Normal appearance Pupil Exam: NORMAL ACCOMODATION - ENT Exam ENT Exam: Mucous Membranes Moist - Neck Exam Neck exam: Full Rom - Respiratory Exam Respiratory Exam: Clear to PA & Lateral, UNREMARKABLE. absent: Rales, Rhonchi, Wheezes - Cardiovascular Exam Cardiovascular Exam: REGULAR RHYTHM, +S1, +S2. absent: Diastolic murmur, Systolic Murmur - GI/Abdominal Exam GI & Abdominal Exam: Normal Bowel Sounds, Soft, Unremarkable. absent: Firm, Guarding, Rigid - Extremities Exam Extremities exam: normal inspection, pedal pulses present - Back Exam Back exam: NORMAL INSPECTION - Neurological Exam Neurological exam: Alert, CN II-XII Intact, Oriented x3 - Psychiatric Exam Psychiatric exam: Normal Affect, Normal Mood - Skin Skin Exam: Normal Color, Warm Discharge Plan - Discharge Medications Prescriptions: Amiodarone [Cordarone] 200 mg PO DAILY #30 tab Apixaban [Eliquis] 2.5 mg PO BID #60 tab Ascorbic Acid [Vitamin C 500 mg Tab] 500 mg PO DAILY #30 tab Atenolol [Tenormin] 25 mg PO DAILY #30 tab Atorvastatin [Lipitor] 40 mg PO DIN #30 tab Lisinopril [Zestril] 5 mg PO DAILY #30 tab Verapamil [Calan SR Tab] 120 mg PO DAILY #30 tab Zinc [Zinc Sulfate 220 mg Cap] 220 mg PO DAILY #30 cap - Follow Up Plan Condition: GOOD Disposition: HOME/ ROUTINE Instructions: Myocardial Infarction (DC), Atrial Fibrillation (DC) Additional Instructions: Patient is clear for discharge home. Patient to follow up with Cardiology and Nephrology within 1 week to follow up on when to resume Lasix. Patient also to follow up with PMD. Continue medications as prescribed. Contiue 1250ml fluid restriction.
[2017-06-19] MEDS ORDERED: Verapamil 120 mg ER Tab PO SCH (10:00)
[2017-06-19 10:23] VITALS: RESP 20; TEMP 98.3; O2SAT 95
[2017-06-19] MEDS: Tiotropium 18 mcg Cap For Inhalation IH SCH (10:48)
[2017-06-19] MEDS: Magnesium Oxide 400 mg Tab UD PO SCH ×2 (10:49→13:23)
[2017-06-19] MEDS: Multivitamin Therapeutic Tab PO SCH (10:49)
[2017-06-19] MEDS: cycloSPORINE 0.05 % Opth Emulsion UD OU SCH (10:50)
[2017-06-19] MEDS: PROPYLENE GLYCOL 0.6% OU SCH (10:51)
[2017-06-19] MEDS: TIMOLOL OS SCH (10:52)
[2017-06-19] MEDS: DORZOLAMIDE OS SCH (10:52)
[2017-06-19] MEDS: LEFLUNOMIDE 20 MG PO SCH (10:53)
[2017-06-19] MEDS: Aritificial Tears (15ml) OU SCH (10:53)
[2017-06-19 10:59] VITALS: BP 118/64; PULSE 65
--- NOTE | 2017-06-19 16:01 | PN ---
DATE: 06/19/2017 LOCATION: The patient in room 314, bed #1. REASON FOR CONSULTATION AND FOLLOWUP: Atrial fibrillation, REECE cardioversion, then went back into atrial fibrillation. SUBJECTIVE: The patient sitting in chair without chest pain, shortness of breath, or palpitation. PHYSICAL EXAMINATION: VITAL SIGNS: Blood pressure 118/64, respirations 20, pulse 65, temperature 98.3. HEENT: Head is normocephalic. Eyes: Pupils normal. Conjunctivae normal. Nose and throat normal. NECK: JVP low. Carotids equal. Thorax AP diameter normal. LUNGS: Clear. CARDIOVASCULAR: S1 and S2. ABDOMEN: Soft and nontender. No organomegaly. EXTREMITIES: No clubbing. No cyanosis. LABORATORY DATA: WBC 5.0, hemoglobin 12.5, hematocrit 37.6, platelets 132. Sodium 128, potassium 3.8, BUN 19, creatinine 0.7. AST, ALT normal. Total protein 5.6, albumin 3.3. DIAGNOSES: New onset atrial fibrillation rapid rate, REECE cardioversion, then to sinus, then the patient went back into atrial fibrillation, but now with medication, the patient into sinus rhythm again, nonobstructive coronary artery disease on cardiac catheterization, rheumatoid arthritis, cardiomyopathy. PLAN: It looks like sinus rhythm, but we have to wait and continue with Eliquis and other medication because the patient can have paroxysmal atrial fibrillation as mentioned above. The patient had atrial fib, converted with REECE cardioversion and sinus and then went back into rapid atrial fibrillation. The patient also on verapamil which is Calan SR 120 mg p.o. daily, amiodarone 200 mg p.o. daily, Eliquis 2.5 b.i.d., atorvastatin 40 daily, magnesium oxide 400 t.i.d, Neurontin 300 daily, atenolol 25 p.o. daily, lisinopril 5 mg daily. We will continue physical therapy. Effie Middleton MD
--- NOTE | 2017-06-19 16:23 | PN ---
DATE: SUBJECTIVE: The patient is currently seen sitting in the chair in the TCU, she is anticipating discharge later today. Her sodium level has improved from 126 to 128 with holding diuretic therapy and with fluid restriction. MEDICATIONS: Medication list reviewed. The patient is currently on artificial tears, Calan, Cepacol, amiodarone, Eliquis, folic acid, eyedrops, Klonopin, Arava, Lipitor, magnesium oxide, Neurontin, Protonix, Restasis, Spiriva, Tenormin, multivitamins, vitamin C, Zestril, and zinc. PHYSICAL EXAMINATION: VITAL SIGNS: Blood pressure 118/64, pulse 65, respiratory rate 20 with a temperature of 98.3. HEENT: Shows her to be normocephalic and atraumatic. Conjunctivae are pink. Sclerae anicteric. NECK: Supple. No neck vein distention. CHEST: Clear to auscultation and percussion. No rales. No rhonchi. No wheezing. CARDIOVASCULAR: Shows a regular rate and rhythm with TR. No S3. No S4. No rub. ABDOMEN: Soft. Bowel sounds normal. No masses. No rebound. No guarding. EXTREMITIES: Show trace pitting ankle edema of her lower extremity unchanged from previous exam. No cyanosis or clubbing. LABORATORY DATA AND IMAGING: CBC: White blood cell count today 5.0, hemoglobin stable at 12.5, and platelet count is 132,000. Chemistries show an improvement in her sodium from 126 to 128. Potassium 3.8, chloride 94 with CO2 of 28, BUN 90 with a creatinine of 0.7. Glucose is 78. Calcium, magnesium, and phosphorous levels are all normal. Albumin is 3.3. Urine sodium was 18 consistent with mild depletional hyponatremia. ASSESSMENT: 1. Hyponatremia in patient who appears to be euvolemic. Her urine sodium is less than 20 and is consistent with mild depletional hyponatremia in all likelihood this is secondary to the use of Lasix therapy for her lower extremity edema. The Lasix has been discontinued. The patient will elevate her legs and use compression stockings on an as needed basis. She will also decrease her fluid intake voluntarily at home. 2. History of hypertension. Blood pressure is controlled. 3. History of lung cancer, status post lobe resection, stable. 4. History of atrial fibrillation with rapid ventricular response, status post non-ST elevation myocardial infarction, status post transesophageal echocardiography with cardioversion. She remains on antiarrhythmic therapy. She remains on verapamil and beta-luis f therapy for rate control. She appears to be in normal sinus rhythm and is on chronic anticoagulation. 5. History of rheumatoid arthritis, currently stable on present medical therapy. 6. History of hyperlipidemia, controlled. PLAN: 1. From renal standpoint, the patient may be discharged from TCU today. I have asked her to be cautious with her oral fluid intake over the next several days to weeks. She will follow up with her primary care physician, Dr. Bo Huang and have laboratory work done at the office perhaps in 1 to 2 weeks. 2. The patient should not go home on Lasix therapy. If she does develop any lower extremity edema, she should elevate her legs and use compression stockings. 3. No change in blood pressure medication. 4. Follow up with me only necessary if her sodium level drops in the outpatient setting. Brady Davis MD
== END 2017-06-19 15:37 | disposition home or self-care (01) | DRG 280 ==
LOC: TRCU 19:13
PROVIDERS: ADMIT Internal Medicine; ATTEND Hospitalist
PROC: F07Z9FZ Gait Training/Functional Ambulation Treatment using Assistive, Adaptive, Supportive or Protective Equipment (ICD-10-PCS; principal; 2017-06-13)
PROC: F07Z8ZZ Transfer Training Treatment (ICD-10-PCS; 2017-06-13)
PROC: F07Z5ZZ Bed Mobility Treatment (ICD-10-PCS; 2017-06-13)
PROC: F07L6ZZ Therapeutic Exercise Treatment of Musculoskeletal System - Lower Back / Lower Extremity (ICD-10-PCS; 2017-06-13)
PROC: F08Z2ZZ Grooming/Personal Hygiene Treatment (ICD-10-PCS; 2017-06-13)
PROC: F08Z1FZ Dressing Techniques Treatment using Assistive, Adaptive, Supportive or Protective Equipment (ICD-10-PCS; 2017-06-13)
DX: I21.4 Non-ST elevation (NSTEMI) myocardial infarction (principal); I50.23 Acute on chronic systolic (congestive) heart failure; E87.1 Hypo-osmolality and hyponatremia; I42.9 Cardiomyopathy, unspecified; I11.0 Hypertensive heart disease with heart failure; E83.42 Hypomagnesemia; I48.0 Paroxysmal atrial fibrillation; G25.81 Restless legs syndrome; E78.5 Hyperlipidemia, unspecified; E87.6 Hypokalemia; I25.10 Atherosclerotic heart disease of native coronary artery without angina pectoris; M06.9 Rheumatoid arthritis, unspecified; F41.9 Anxiety disorder, unspecified; Z96.651 Presence of right artificial knee joint; Z96.642 Presence of left artificial hip joint; Z85.118 Personal history of other malignant neoplasm of bronchus and lung; Z90.2 Acquired absence of lung [part of]; Z87.891 Personal history of nicotine dependence; Z79.01 Long term (current) use of anticoagulants